=== PATIENT | male | born 1950 | race Caucasian/White ===

== ENCOUNTER 2021-01-09 19:05 | Inpatient (IN) | payer OTHER ==
[2021-01-09 19:42] LABS: Protime INR 1.09
[2021-01-09 19:53] LABS: Absolute Lymphocytes (CBC) 1.2 K/uL (0.7-4.9); Basophils % 0.4 % (0-1.3); Hematocrit 43.8 % (39.6-49.0); Lymphocytes % 8.8 % (15.3-44.8); MPV 8.5 fL (7.6-11.3); RBC Red Blood Cell Count 4.76 M/uL (4.33-5.43)
[2021-01-09 19:55] LABS: Albumin 3.2 g/dL (3.4-5.0); Bilirubin Direct 0.2 mg/dL (0-0.2); Bilirubin Total 0.8 mg/dL (0.2-1.0); Magnesium 1.9 mg/dL (1.8-2.4); Protein, Total 7.9 g/dL (6.4-8.2); Troponin (Emerg Dept Use Only) 0.02 ng/mL (0.0-0.045)
--- NOTE | 2021-01-09 20:03 | RAD REPORT ---
EXAM DESCRIPTION: CT - Head C Spine Cap Da Durán - 01/09/2021 7:55 pm CLINICAL HISTORY: Trauma, head and neck injury. Chest, abdomen and pelvis pain. fall COMPARISON: No comparisons TECHNIQUE: CT head without contrast. CT cervical spine without contrast with coronal and sagittal reformatted images. CT chest, abdomen and pelvis with coronal and sagittal reformatted images of the spine. All CT scans are performed using dose optimization technique as appropriate and may include automated exposure control or mA/KV adjustment according to patient size. FINDINGS: CT HEAD WITHOUT CONTRAST: No intracranial hemorrhage, hydrocephalus or extra-axial fluid collection. No acute large vascular te rritory infarct. Mild chronic small vessel ischemic changes. 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 Mild bilateral maxillary sinus and ethmoid air cell thickening. Trace thickening within the sphenoid sinuses. The calvarium is intact. CT CERVICAL SPINE WITHOUT CONTRAST: No fracture or subluxation. The prevertebral soft tissues are normal in thickness.Multilevel cervical spondylosis with varying de grees of neural foraminal narrowing. This is most advanced at the C4-5, C5-6, and C6-[address] CHEST, ABDOMEN, PELVIS: Thorax: Chest Wall: No abnormal mass Lungs: No acute abnormality. Pleura: No effusions or pneumothorax. Addie/Mediastinum: No lymphadenopathy. Aorta/Pulmonary Arteries: Unremarkable Heart: Cardiomegaly. Mild coronary artery calcifications. Abdomen/Pelvis: Liver: No acute abnormality or suspicious lesions. Biliary: No biliary ductal dilatation. Stomach: No significant focal abnormality. Duodenum: No significant focal abnormality. Pancreas: No significant abnormality. Spleen: No significant abnormality. Adrenal: No suspicious lesions. Kidney/ureter: No hydronephrosis. No renal calculi. Retroperitoneum: No retroperitoneal adenopathy. Vascular: No aneurysm. Bowel: No significant focal abnormality. Peritoneum: No ascites or free air. Bladder: Grossly unremarkable. Reproductive: Mild prostatomegaly. Bones: No acute fracture. Bridging osteophytes in the spine. Other: n/a IMPRESSION: Negative for acute traumatic findings.
--- NOTE | 2021-01-09 20:06 | RAD REPORT ---
EXAM DESCRIPTION: CT - CTFB CLINICAL HISTORY: TRAUMA COMPARISON: No comparisons TECHNIQUE: Axial 2 mm thick images of the face were obtained with sagittal and coronal reconstructio n images. All CT scans are performed using dose optimization technique as appropriate and may include automated exposure control or mA/KV adjustment according to patient size. FINDINGS: No acute facial bone fracture is seen.The mandible is intact. The globes and orbital contents are grossly unremarkable.Mild paranasal sinus thickening. IMPRESSION: Negative for facial bone fracture.
--- NOTE | 2021-01-09 20:20 | RAD REPORT ---
EXAM DESCRIPTION: RAD - Pelvis - 01/09/2021 8:13 pm CLINICAL HISTORY: fall COMPARISON: Head C Spine Cap W Con dated 01/09/2021 FINDINGS: No acute fracture. No malalignment. No significant focal degenerative changes. Contrast se en within the ureters and bladder. Araya catheter. IMPRESSION: No acute osseous abnormality involving the pelvis.
--- NOTE | 2021-01-09 20:21 | RAD REPORT ---
EXAM DESCRIPTION: RAD - Chest Single View - 01/09/2021 8:13 pm CLINICAL HISTORY: fall COMPARISON: Head C Spine Cap W Con dated 01/09/2021 FINDINGS: Lines: None. Lungs: No evidence of edema or pneumonia. Pleural: No significant pleural effusions or pneumothorax. Cardiac: Cardiomegaly. Bones: No acute fractures. Other: IMPRESSION: No acute cardiopulmonary disease.
[2021-01-09] MEDS ORDERED: ACETAMINOPHEN 650MG/RECT SUPP PR ONE (20:25)
[2021-01-09 20:37] LABS: Urine Blood 2+ (Negative); Urine Glucose Negative (Negative); Urine Protein 2+ (Negative)
[2021-01-09] MEDS ORDERED: NA CHLORIDE 0.9% 500 ML ONE ×2 (20:46→22:15)
[2021-01-09 20:47] LABS: Blood Morphology Comment NOT SEEN (NOT SEEN); Platelet Estimate ADEQ; White Blood Cell Scan OK (OK)
[2021-01-09] MEDS ORDERED: NA CHLORIDE 0.9% 50 ML ONE (20:47)
[2021-01-09] MEDS ORDERED: FOLIC ACID 5 MG/ML VIAL ONE (20:47)
[2021-01-09 20:54] LABS: Barbiturates NEGATIVE (NEGATIVE); Benzodiazepines NEGATIVE (NEGATIVE); Cocaine NEGATIVE (NEGATIVE); METHAMPHETAM NEGATIVE (NEGATIVE); Methadone NEGATIVE (NEGATIVE); Opiates NEGATIVE (NEGATIVE); Phencyclidine NEGATIVE (NEGATIVE); THC Cannibis NEGATIVE (NEGATIVE); Urine Bacteria <20 /HPF (NONE SEEN); Urine Mucus 4+ /HPF (NONE SEEN); Urine RBC 20-50 /HPF (NONE SEEN)
[2021-01-09 21:18] LABS: Arterial Blood Carboxyhemoglob 1.7 % (0-1.5); Blood Gas Oxyhemoglobin 92.5 % (94-97); Blood O2 Saturation 94.9 % (92-98.5)
[2021-01-09] MEDS ORDERED: NA CHLORIDE 0.9% 100 ML ONE ×2 (22:10→22:14)
[2021-01-09] MEDS ORDERED: CEFTRIAXONE 1000 MG/VIAL ONE (22:10)
[2021-01-09 22:14] LABS: SARS-COV-2 RT PCR NEGATIVE (NEGATIVE)
[2021-01-09] MEDS ORDERED: HYDRALAZINE HCL 20 MG/ML VIAL ONE (22:14)
[2021-01-09] MEDS ORDERED: FENTANYL CITR 100 MCG/2 ML ONE (22:14)
[2021-01-09] MEDS ORDERED: NA CHLORIDE 0.9% 1,000 ML ONE (22:15)
[2021-01-09] MEDS ORDERED: LEVETIRACETAM 500 MG/5 ML VIAL IV ONE (22:16)
[2021-01-09] MEDS ORDERED: LORazepam 2 MG/ML VIAL ONE (22:50)
--- NOTE | 2021-01-09 23:33 | EDPHYS ---
Physician Documentation [facility] Name: Aram Kapadia Age: 70 yrs Sex: Male : 1950 Arrival Date: 01/09/2021 Time: 19:07 Bed 28 Private MD: ED Physician Mamadou Blandon HPI: 01/09 19:45 This 70 yrs old Male presents to ER via EMS with complaints of Fall Injury. cp 19:45 The patient presents with decreased responsiveness. cp 19:45 Current symptoms: In the emergency department the patient's symptoms are unchanged from cp the initial presentation, despite home interventions. 19:45 Patient's baseline: Neuro: alert and fully oriented, Motor: no deficits, Ambulation: cp walks without assistance, Speech: normal. EMS reports that girlfriend reports history of slip and fall yesterday in bathroom. Patient reportedly was able to get up and move to living room in which he has been laying on floor since yesterday. Girlfriend reportedly went to town this afternoon and when she returned, patient was confused. Historical: - Allergies: 20:30 No Known Allergies; lp1 - Home Meds: 20:30 None [Active]; lp1 - PMHx: 20:30 None; lp1 - Immunization history: Last tetanus immunization: unknown. - Social history:: Smoking status: unknown. ROS: 19:50 Neuro: Positive for dizziness. cp 19:50 Unable to obtain ROS due to altered mental status. Exam: 19:55 Constitutional: The patient appears non-diaphoretic, well developed, well nourished, cp obese. 19:55 Head/face: Noted is ecchymosis, that is moderate, of the left eye, swelling, that is cp moderate, of the left eye. 19:55 Eyes: Pupils: equal, round, and reactive to light and accomodation, Conjunctiva: subconjunctival hemorrhage(s), seen in the left eye, Anterior chamber: normal, no hyphema. 19:55 ENT: External ear(s): are unremarkable, Ear canal(s): are normal, clear, TM's: dullness, bilaterally, Nose: is normal, Mouth: Lips: dry, Oral mucosa: moist, Posterior pharynx: Airway: no evidence of obstruction, patent. 19:55 Neck: C-spine: C-collar placed in ED. 19:55 Chest/axilla: Inspection: normal. 19:55 Cardiovascular: Rate: normal, Rhythm: regular, Edema: is not appreciated, JVD: is not appreciated. 19:55 Respiratory: the patient does not display signs of respiratory distress, Respirations: normal, no use of accessory muscles, no retractions, labored breathing, is not present, Breath sounds: are clear throughout, no decreased breath sounds, no stridor, no wheezing. 19:55 Abdomen/GI: Inspection: obese Bowel sounds: active, all quadrants, Palpation: soft, in all quadrants, moderate abdominal tenderness, in all quadrants, rebound tenderness, is not appreciated. 19:55 Skin: cellulitis, is not appreciated, no rash present. 19:55 Neuro: Orientation: to person, Mentation: slow to respond, confused, Motor: left arm and left leg weak. 20:20 ECG was reviewed by the Attending Physician. cp Vital Signs: 19:07 BP 184 / 84; Pulse 84; Resp 14; Temp 97.9; Pulse Ox 97% ; bp 20:20 BP 189 / 101; Pulse 97; Resp 20; Temp 101(C); Pulse Ox 95% on R/A; lp1 20:35 BP 209 / 96; Pulse 84; Resp 19; Temp 101.4(C); Pulse Ox 95% on R/A; lp1 21:26 Temp 101.1(R); bb 22:00 BP 207 / 91; Pulse 85; Resp 16; Temp 101.2(C); Pulse Ox 95% on R/A; lp1 23:20 BP 180 / 98; Pulse 90; Resp 17; Temp 101(C); Pulse Ox 100% on R/A; Weight 158.76 kg; lp1 01/10 00:00 BP 184 / 99; Pulse 91; Resp 20; Temp 101(C); Pulse Ox 100% on R/A; lp1 Caprice Coma Score: 01/09 19:07 Eye Response: none(1). Verbal Response: incomprehensible(2). Motor Response: withdraws bp from pain(4). Total: 7. 21:00 Eye Response: to voice(3). Verbal Response: confused(4). Motor Response: localizes lp1 pain(5). Total: 12. Trauma Score (Adult): 19:07 Eye Response: to pain(0); Verbal Response: incomprehensible(0); Motor Response: bp withdraws from pain(1); Systolic BP: > 89 mm Hg(4); Respiratory Rate: 10 to 29 per min(4); Caprice Score: 8; Trauma Score: 9 MDM: 19:15 Patient medically screened. cp 21:45 Physician consultation: Maco Suazo MD was called at 21:46, was contacted at 21:46, cp regarding consult, patient's condition, would like admission per Dr. Pete CEVALLOS recommends spinal tap, administer Rocephin and Keppra to cover for seizure. 21:45 Data reviewed: vital signs, nurses notes, lab test result(s), EKG, radiologic studies, cp CT scan, plain films. 21:45 Test interpretation: by ED physician or midlevel provider: ECG, plain radiologic cp studies. 23:00 ED course: Spinal tap attempted by myself and DR Blandon and unsuccessful after multiple cp attempts. IV Rocephin and Keppra given. Will admit to ICU. 23:00 Physician consultation: Pete CEVALLOS was called at 22:00, was contacted at 22:00, cp regarding admission, to the ICU, patient's condition. 01/09 19:15 Order name: AMMONIA 01/09 19:15 Order name: Basic Metabolic Panel; Complete Time: 20:28 01/09 20:29 Interpretation: Normal except: GLUC 158; GFR 70. 01/09 19:15 Order name: CBC with Diff; Complete Time: 21:10 01/09 20:29 Interpretation: Normal except: WBC 14.10; OSEAS% 87.0; LYM% 8.8; NEUT A 12.3. 01/09 19:15 Order name: LFT's; Complete Time: 20:28 01/09 20:30 Interpretation: Normal except: ALB 3.2; GLOB 4.7; A/G 0.7. 01/09 19:15 Order name: Magnesium; Complete Time: 20:28 01/09 19:15 Order name: NT PRO-BNP; Complete Time: 20:28 01/09 20:29 Interpretation: Abnormal: NT PRO-BNP 2393. 01/09 19:15 Order name: PT-INR; Complete Time: 20:28 01/09 19:15 Order name: Troponin (emerg Dept Use Only); Complete Time: 20:28 01/09 20:30 Interpretation: Reviewed. 01/09 19:15 Order name: CK; Complete Time: 20:28 01/09 20:29 Interpretation: Abnormal: CPK 846. 01/09 19:15 Order name: Blood Culture Adult (2); Complete Time: 03:06 01/09 19:15 Order name: Lactate; Complete Time: 21:37 01/09 19:15 Order name: Procalcitonin; Complete Time: 03:06 01/09 19:15 Order name: Urine Microscopic Only; Complete Time: 21:10 01/09 21:10 Interpretation: Normal except: URBC 20-50; MUCUS 4+. 01/09 19:15 Order name: Ptt, Activated; Complete Time: 20:28 01/09 19:15 Order name: Ammonia; Complete Time: 21:10 EDDE 01/09 19:31 Order name: UDS; Complete Time: 21:10 01/09 19:31 Order name: ETOH Level; Complete Time: 20:28 01/09 19:36 Order name: Glucose, Ancillary Testing; Complete Time: 19:51 EDMS 01/09 19:51 Interpretation: GLUC,ANCIL 141; Reviewed. 01/09 20:37 Order name: Urine Dipstick-Ancillary; Complete Time: 20:42 EDMS 01/09 20:40 Order name: ABG; Complete Time: 21:37 01/09 20:47 Order name: CBC Smear Scan; Complete Time: 21:10 EDMS 01/09 21:47 Order name: COVID-19/FLU A+B; Complete Time: 03:06 EDMS 01/09 21:59 Order name: Spinal Fluid Profile 01/10 00:06 Order name: Lactate Sepsis 2 HR Follow-up; Complete Time: 03:06 EDMS 01/10 03:28 Order name: Glucose, Ancillary Testing; Complete Time: 03:06 EDMS 01/10 04:41 Order name: Protime (+INR); Complete Time: 03:06 EDMS 01/10 04:41 Order name: PTT, Activated Partial Thromb; Complete Time: 03:06 EDMS 01/10 04:43 Order name: CBC with Automated Diff; Complete Time: 03:06 EDMS 01/10 04:52 Order name: Lactate; Complete Time: 03:06 EDMS 01/10 05:00 Order name: Comprehensive Metabolic Panel; Complete Time: 03:06 EDMS 01/10 05:00 Order name: Phosphorus; Complete Time: 03:06 EDMS 01/10 05:00 Order name: Creatine Phosphokinase; Complete Time: 03:06 EDMS 01/10 05:00 Order name: Troponin I; Complete Time: 03:06 EDMS 01/10 05:00 Order name: Lipid Profile; Complete Time: 03:06 EDMS 01/10 05:00 Order name: C-Reactive Protein; Complete Time: 03:06 EDMS 01/10 05:00 Order name: T4 Free; Complete Time: 03:06 EDMS 01/10 05:00 Order name: Magnesium; Complete Time: 03:06 EDMS 01/10 05:00 Order name: Thyroid Stimulating Hormone; Complete Time: 03:06 EDMS 01/10 05:21 Order name: Hemoglobin A1c; Complete Time: 03:06 EDMS 01/10 09:25 Order name: Glucose, Ancillary Testing; Complete Time: 03:06 EDMS 01/10 12:54 Order name: Glucose, Ancillary Testing; Complete Time: 03:06 EDMS 01/10 17:13 Order name: Glucose, Ancillary Testing; Complete Time: 03:06 MS 01/10 20:52 Order name: Glucose, Ancillary Testing; Complete Time: 03:06 EDMS 01/11 03:47 Order name: CBC with Automated Diff; Complete Time: 03:06 EDMS 01/11 04:00 Order name: Comprehensive Metabolic Panel; Complete Time: 03:06 EDMS 01/11 04:00 Order name: Phosphorus; Complete Time: 03:06 EDMS 01/11 04:00 Order name: Troponin I; Complete Time: 03:06 EDMS 01/11 04:00 Order name: Magnesium; Complete Time: 03:06 EDMS 01/11 08:34 Order name: Glucose, Ancillary Testing; Complete Time: 03:06 EDMS 01/11 17:38 Order name: Glucose, Ancillary Testing; Complete Time: 03:06 EDMS 01/11 17:59 Order name: Vancomycin Level Trough; Complete Time: 03:06 EDMS 01/12 02:45 Order name: Glucose, Ancillary Testing; Complete Time: 03:06 EDMS 01/12 04:20 Order name: CBC with Automated Diff; Complete Time: 03:06 MS 01/12 04:53 Order name: Comprehensive Metabolic Panel; Complete Time: 03:06 MS 01/12 04:53 Order name: Phosphorus; Complete Time: 03:06 EDMS 01/12 04:54 Order name: Troponin I; Complete Time: 03:06 MS 01/12 04:54 Order name: Magnesium; Complete Time: 03:06 EDMS 01/12 08:27 Order name: CREATININE WHOLE BLOOD; Complete Time: 03:06 MS 01/12 08:28 Order name: Glucose, Ancillary Testing; Complete Time: 03:06 MS 01/12 12:29 Order name: Troponin I; Complete Time: 03:06 [facility] 01/09 19:15 Order name: XRAY Chest (1 view); Complete Time: 20:28 01/09 20:31 Interpretation: Report reviewed. 01/09 19:15 Order name: XRAY Pelvis; Complete Time: 20:28 01/09 20:30 Interpretation: Report reviewed. 01/09 19:15 Order name: CT Facial Bones W/O Con; Complete Time: 20:28 01/09 20:31 Interpretation: Report reviewed. 01/09 19:15 Order name: CT Traumagram (Head C Spine CAP W Con); Complete Time: 20:28 01/12 09:22 Order name: RAD; Complete Time: 03:06 [facility] 01/12 18:20 Order name: Troponin I; Complete Time: 03:06 [facility] 01/12 18:35 Order name: Ammonia; Complete Time: 03:06 EDMS 01/13 04:35 Order name: CBC with Automated Diff; Complete Time: 03:06 EDMS 01/13 05:21 Order name: Comprehensive Metabolic Panel; Complete Time: 03:06 EDMS 01/13 05:21 Order name: Phosphorus; Complete Time: 03:06 EDMS 01/13 05:21 Order name: Magnesium; Complete Time: 03:06 EDMS 01/13 05:21 Order name: Vancomycin Level Trough; Complete Time: 03:06 EDMS 01/13 13:23 Order name: Urinalysis; Complete Time: 03:06 EDMS 01/13 13:39 Order name: Urine Microscopic Only; Complete Time: 03:06 EDMS 01/13 14:11 Order name: Lactic Dehydrogenase; Complete Time: 03:06 EDMS 01/13 18:59 Order name: Ur Protein; Complete Time: 03:06 EDMS 01/14 05:18 Order name: Comprehensive Metabolic Panel; Complete Time: 03:06 EDMS 01/14 05:18 Order name: Renal Panel; Complete Time: 03:06 EDMS 01/14 05:18 Order name: Uric Acid; Complete Time: 03:06 EDMS 01/14 05:18 Order name: Creatine Phosphokinase; Complete Time: 03:06 EDMS 01/14 05:18 Order name: Magnesium; Complete Time: 03:06 EDMS 01/14 05:18 Order name: Thyroid Stimulating Hormone; Complete Time: 03:06 EDMS 01/14 05:33 Order name: T4 Free; Complete Time: 03:06 EDMS 01/14 07:05 Order name: CBC with Automated Diff; Complete Time: 03:06 EDMS 01/14 08:04 Order name: Urine Culture; Complete Time: 03:06 EDMS 01/14 11:44 Order name: Salicylates Level; Complete Time: 03:06 EDMS 01/14 12:09 Order name: Osmolality, Serum; Complete Time: 03:06 EDMS 01/14 12:51 Order name: ABG Arterial Blood Gas; Complete Time: 03:06 EDMS 01/15 06:02 Order name: CBC with Automated Diff; Complete Time: 03:06 EDMS 01/15 06:07 Order name: Protime (+INR); Complete Time: 03:06 EDMS 01/15 06:07 Order name: PTT, Activated Partial Thromb; Complete Time: 03:06 EDMS 01/15 06:18 Order name: Vancomycin Level Trough; Complete Time: 03:06 EDMS 01/15 06:24 Order name: Renal Panel; Complete Time: 03:06 EDMS 01/15 07:54 Order name: Rheumatoid Factor; Complete Time: 03:06 EDMS 01/15 14:27 Order name: ABG Arterial Blood Gas; Complete Time: 03:06 EDMS 01/16 06:17 Order name: CBC with Automated Diff EDMS 01/16 06:21 Order name: Lactate EDMS 01/16 06:39 Order name: Renal Panel EDMS 01/16 06:39 Order name: Magnesium EDMS 01/16 06:43 Order name: Vitamin B12 Level EDMS 01/17 03:56 Order name: CBC with Automated Diff EDMS 01/17 04:20 Order name: Renal Panel EDMS 01/17 13:53 Order name: Complement C3 EDMS 01/17 13:53 Order name: Complement C4 EDMS 01/17 13:53 Order name: Haptoglobin EDMS 01/17 15:55 Order name: Hepatitis C RNA, Quant (PCR) EDMS 01/17 19:56 Order name: HIV AG/AB, 4th Gen W/ Reflex EDMS 01/17 23:46 Order name: Hepatitis B Surface Ab,Quant EDMS 01/18 04:50 Order name: CBC with Automated Diff EDMS 01/18 05:19 Order name: Renal Panel EDMS 01/18 21:23 Order name: ANTONIO IFA Screen w/Reflex EDMS 01/19 05:25 Order name: CBC with Automated Diff EDMS 01/19 06:00 Order name: Basic Metabolic Panel EDMS 01/19 06:00 Order name: Liver (Hepatic) Function EDMS 01/19 06:00 Order name: Phosphorus EDMS 01/19 06:00 Order name: Magnesium EDMS 01/19 06:00 Order name: Vancomycin Level Trough EDMS 01/19 07:25 Order name: Anti-Double Strand DNA Antibod EDMS 01/19 10:05 Order name: C-ANCA Anti-Proteinase 3 EDMS 01/19 10:05 Order name: P-ANCA Anti-Myeloperoxidase Ab EDMS 01/19 10:05 Order name: Glomerular Basement Membrane EDMS 01/19 19:13 Order name: Hep B Surface AG w/ Confirm EDMS 01/19 19:13 Order name: Hep B Core Ab, Tot/reflex IgM EDMS 01/19 19:13 Order name: Hepatitis B Surface Antibody EDMS 01/09 19:15 Order name: EKG; Complete Time: 19:16 cp 01/09 19:15 Order name: Cardiac monitoring; Complete Time: 19:35 cp 01/09 19:15 Order name: EKG - Nurse/Tech; Complete Time: 20:39 cp 01/09 19:15 Order name: IV Saline Lock; Complete Time: 19:36 cp 01/09 19:15 Order name: Labs collected and sent; Complete Time: 19:36 cp 01/09 19:15 Order name: O2 Per Protocol; Complete Time: 19:36 cp 01/09 19:15 Order name: O2 Sat Monitoring; Complete Time: 19:36 01/09 19:15 Order name: Urine Dipstick-Ancillary (obtain specimen); Complete Time: 20:39 cp 01/09 19:15 Order name: Araya; Complete Time: 20:39 01/09 20:41 Order name: Swallow Screen; Complete Time: 20:45 01/09 21:16 Order name: Vital Signs: rectal temp please; Complete Time: 21:26 cp 01/09 21:59 Order name: Lumbar Puncture Consent; Complete Time: 22:33 cp 01/09 21:59 Order name: Lumbar Puncture Setup; Complete Time: 23:31 01/09 23:38 Order name: CONS Physician Consult EDMS 01/13 10:04 Order name: CT; Complete Time: 03:06 EDMS 01/13 11:57 Order name: US; Complete Time: 03:06 EDMS 01/14 15:38 Order name: RAD; Complete Time: 03:06 EDMS 01/18 12:13 Order name: RAD EDMS 01/19 07:44 Order name: RAD EDMS 01/19 11:07 Order name: RAD EDMS 01/19 12:08 Order name: RAD EDMS 01/19 13:25 Order name: RAD EDMS EC:20 Rate is 92 beats/min. Rhythm is regular. KS interval is normal. QRS interval is normal. cp QT interval is normal. T waves are Inverted in lead aVR. Interpreted by me. Reviewed by me. Administered Medications: 20:25 Drug: Tylenol Suppository 650 mg Route: KS; bb 23:33 Follow up: Response: Temperature is decreased lp1 20:55 Drug: foLIC Acid 1 mg Route: IVPB; Site: right antecubital; lp1 21:00 Follow up: IV Status: Completed infusion; IV Intake: 50ml lp1 20:55 Drug: NS 0.9% 500 ml Route: IV; Rate: 500 ml/hr; Site: right antecubital; lp1 22:32 Follow up: IV Status: Completed infusion; IV Intake: 500ml lp1 22:18 Drug: Rocephin - (cefTRIAXone) 2 grams Route: IVPB; Infused Over: 30 mins; Site: right bb antecubital; 22:55 Follow up: IV Status: Completed infusion; IV Intake: 100ml lp1 22:25 Drug: NS 0.9% 500 ml Route: IV; Rate: bolus; Site: left antecubital; lp1 23:59 Follow up: IV Status: Completed infusion; IV Intake: 500ml lp1 22:25 Drug: hydrALAZINE 10 mg Route: IVP; Site: left antecubital; lp1 23:33 Follow up: Response: Blood pressure is lowered lp1 22:25 Drug: NS 0.9% 1000 ml Route: IV; Rate: 1000 ml; Site: left antecubital; lp1 01/10 00:00 Follow up: IV Status: Completed infusion; IV Intake: 1000ml lp1 01/09 22:32 Drug: Keppra (levETIRAcetam) 1000 mg Route: IV; Rate: calculated rate; Site: right lp1 antecubital; 22:55 Follow up: IV Status: Completed infusion; IV Intake: 100ml lp1 22:50 Drug: fentaNYL (PF) 25 mcg Route: IVP; Site: left antecubital; lp1 23:32 Follow up: Response: No adverse reaction lp1 22:50 Drug: Ativan (LORazepam) 1 mg {Note: Verbal order per BAN Lemons for Lumbar puncture lp1 procedure.} Route: IVP; Site: left antecubital; 23:33 Follow up: Response: No adverse reaction lp1 Disposition: 01/10 01:00 Chart complete. cp 01/17 19:09 Co-signature as Attending Physician, Mamadou Blandon MD. [email or web address] Disposition Summary: 01/09/21 23:32 Hospitalization Ordered Hospitalization Status: Inpatient Admission cp Provider: Pete Menard cp Condition: Serious cp Problem: new cp Symptoms: are unchanged cp Bed/Room Type: Standard cp Location: [facility] ER HOLD(01/17/21 16:34) eb Room Assignment: ERHOLD-(01/17/21 16:34) eb Diagnosis - Altered mental status, unspecified cp - Fever, unspecified cp - Fall on same level, unspecified cp Forms: - Medication Reconciliation Form cp - SBAR form cp Signatures: Dispatcher [employer] Marleen De La Rosa RN RN Starr Gar RN RN Celena Pompa, RN RN lp1 Robert Mon PA PA cp Garcia, Cindy, RN RN Alec Sanchez, RN RN Yani Suárez Maurice, MD MD [email or web address] Corrections: (The following items were deleted from the chart) 01/09 21:47 21:16 CORONAVIRUS+MR.LAB.BRZ ordered. EDMS EDMS 21:47 21:16 Influenza Screen (A \T\ B)+BA.LAB.BRZ ordered. EDMS EDMS 01/10 00:53 01/09 23:32 Intensive Care Unit cp cg 01/10 00:53 01/09 23:32 cp 01/17 16:32 01/10 00:53 [facility] ER HOLD [facility] 01/17 16:32 01/10 00:53 ERHOLD- [facility] 01/17 16:34 16:32 Telemetry/MedSurg (Inpatient) [facility] 16:34 16:32 405 [facility]
--- NOTE | 2021-01-09 23:33 | ER ---
Nurse's Notes [facility] Name: Aram Kapadia Age: 70 yrs Sex: Male : 1950 Arrival Date: 01/09/2021 Time: 19:07 Bed 28 Private MD: Diagnosis: Altered mental status, unspecified;Fever, unspecified;Fall on same level, unspecified Presentation: 01/09 19:07 Chief complaint: EMS states: FALL FROM STANDING LAST PM, NOW UNRESPONSIVE. Care prior bp to arrival: IV initiated. 20 GA, in the right antecubital area, Glucose check: 181. Mechanism of Injury: Fall from standing position. Trauma event details: Injury occurred in the [facility], Injury occurred: at home. Injury occurred: January 08, 2021 Injury occurred at: 19:30. 19:07 Acuity: DAYNE 1 bp 19:07 Method Of Arrival: EMS: [facility] bp 19:17 Coronavirus screen: At this time, the client does not indicate any symptoms associated bp with coronavirus-19. Ebola Screen: No symptoms or risks identified at this time. Initial Sepsis Screen: Does the patient meet any 2 criteria? No. Patient's initial sepsis screen is negative. Does the patient have a suspected source of infection?. Risk Assessment: Do you want to hurt yourself or someone else? Patient reports no desire to harm self or others. Onset of symptoms was January 08, 2021 at 19:30. Trauma Activation: Alert Physician: ED Physician; Name: Barber; Notified At: 19:08; Arrived At: 19:10 Physician: General Surgeon; Name: ; Notified At: 19:08; Arrived At: Physician: Radiology; Name: Sadie Duran Juliet; Notified At: 19:08; Arrived At: 19:10 Physician: Respiratory; Name: ; Notified At: 19:08; Arrived At: Physician: Lab; Name: ; Notified At: 19:08; Arrived At: Historical: - Allergies: 20:30 No Known Allergies; lp1 - Home Meds: 20:30 None [Active]; lp1 - PMHx: 20:30 None; lp1 - Immunization history: Last tetanus immunization: unknown. - Social history:: Smoking status: unknown. Screenin:07 Abuse screen: Denies threats or abuse. Denies injuries from another. Tuberculosis bp screening: No symptoms or risk factors identified. 19:15 Nutritional screening: No deficits noted. Fall Risk Total Burkett Fall Scale indicates lp1 High Risk Score (45 or more points). Fall prevention measures have been instituted. Side Rails Up X 2 Placed Close to Nursing Station Frequent Obs/Assessments Occuring Family Present and informed to notify staff if the need to leave the bedside As available patient and family educated on Fall Prevention Program and Strategies. 20:45 The patient has not been NPO before screening. The patient is not alert, or is unable bb to follow commands. Bedside swallow screening discontinued. Patient kept NPO until cleared by Speech Therapy or Physician. Primary Survey: 19:07 NO uncontrolled hemorrhage observed. A: The patient only responds to painful stimuli. bp Airway: patent. Breathing/Chest: Respiratory pattern: regular, Respiratory effort: spontaneous, unlabored. Circulation: Skin temperature: dry. Disability Painful Stimuli. Exposure/Environment: All clothing and personal items were removed. Forensic evidence collection is not deemed to be indicated at this time. Items placed in patient belonging bag. There is no evidence of uncontrolled external bleeding. Obvious injury(ies) are noted at this time: LEFT EYE HEMATOMA A warming method has been applied: A warm blanket has been provided to the patient. 20:15 Reassessment Airway Airway Patent Oxygen No O2 Breathing/Chest Respiratory effort lp1 Spontaneous Unlabored Breath sounds Clear Chest inspection Symmetrical Circulation Color [place] Temperature Warm Dry Disability Verbal stimuli. Secondary Survey: 20:00 HEENT: Face Other bruising purple in color surrounding left eye, with swelling. lp1 Gastrointestinal: Abdomen is obese. : No deficits noted. Musculoskeletal: Range of motion: intact in all extremities. Assessment: 19:07 General: Appears obese, Behavior is unresponsive. Pain: Unable to use pain scale. Does bp not appear to understand pain scale. Neuro: Level of Consciousness is confused, stuporous, Oriented to none Speech with expressive aphasia noted. EENT: No deficits noted. Cardiovascular: No deficits noted. Respiratory: Airway is patent Respiratory effort is even, unlabored, Respiratory pattern is regular, symmetrical. GI: Abdomen is obese. : No signs and/or symptoms were reported regarding the genitourinary system. Derm: No deficits noted. Musculoskeletal: No deficits noted. Injury Description: Bruise sustained to left eye. 20:35 Reassessment: C-collar removed by provider; at bedside. lp1 21:00 General: Appears in no apparent distress. obese, Behavior is responsive to verbal lp1 stimuli, some incomprehensible words; answering yes/no questions . Pain: Denies pain. Neuro: Level of Consciousness is confused, Oriented to person, Radio Interference Expert are weak on left Moves all extremities. Speech is slurred. EENT: No deficits noted. Cardiovascular: Patient's skin is warm and dry. Respiratory: Airway is patent Respiratory effort is even, Respiratory pattern is regular, Breath sounds are clear bilaterally. GI: Abdomen is obese. : Chapman in place to gravity drainage. Derm: Skin is dry, Bruising that is dark purple, on left eye abrasion to left elbow. Musculoskeletal: Range of motion: intact in all extremities. 22:50 Reassessment: Dr. Blandon and BAN Amaya at bedside for Lumbar Puncture. lp1 23:31 Reassessment: Unsuccessful attempt for lumbar puncture. lp1 01/10 00:40 Reassessment: Patient appears in no apparent distress at this time. Patient resting, lp1 eyes closed, respirations even; Responsive to verbal stimuli. Vital Signs: 01/09 19:07 BP 184 / 84; Pulse 84; Resp 14; Temp 97.9; Pulse Ox 97% ; bp 20:20 BP 189 / 101; Pulse 97; Resp 20; Temp 101(C); Pulse Ox 95% on R/A; lp1 20:35 BP 209 / 96; Pulse 84; Resp 19; Temp 101.4(C); Pulse Ox 95% on R/A; lp1 21:26 Temp 101.1(R); bb 22:00 BP 207 / 91; Pulse 85; Resp 16; Temp 101.2(C); Pulse Ox 95% on R/A; lp1 23:20 BP 180 / 98; Pulse 90; Resp 17; Temp 101(C); Pulse Ox 100% on R/A; Weight 158.76 kg; lp1 01/10 00:00 BP 184 / 99; Pulse 91; Resp 20; Temp 101(C); Pulse Ox 100% on R/A; lp1 Caprice Coma Score: 01/09 19:07 Eye Response: none(1). Verbal Response: incomprehensible(2). Motor Response: withdraws bp from pain(4). Total: 7. 21:00 Eye Response: to voice(3). Verbal Response: confused(4). Motor Response: localizes lp1 pain(5). Total: 12. Trauma Score (Adult): 19:07 Eye Response: to pain(0); Verbal Response: incomprehensible(0); Motor Response: bp withdraws from pain(1); Systolic BP: > 89 mm Hg(4); Respiratory Rate: 10 to 29 per min(4); Caprice Score: 8; Trauma Score: 9 ED Course: 19:07 Patient arrived in ED. bp 19:07 Patient has correct armband on for positive identification. Bed in low position. Call bp light in reach. Side rails up X2. 19:07 Patient maintains SpO2 saturation greater than 95% on room air. bp 19:09 Triage completed. bp 19:10 Maintain EMS IV. Dressing intact. Good blood return noted. Site clean \T\ dry. Gauge \T\ lp 1 site: 20g IV to R AC. 19:11 Robert Mon PA is PHCP. cp 19:11 Mamadou Blandon MD is Attending Physician. cp 19:15 Arm band placed on right wrist. lp1 19:23 Celena Jerry, BOBO is Primary Nurse. lp1 19:36 Inserted saline lock: 20 gauge in left antecubital area, using aseptic technique. Blood ds4 collected. 19:55 CT Facial Bones W/O Con In Process Unspecified. EDMS 19:55 CT Traumagram (Head C Spine CAP W Con) In Process Unspecified. EDMS 20:13 XRAY Chest (1 view) In Process Unspecified. EDMS 20:13 XRAY Pelvis In Process Unspecified. EDMS 20:21 Chapman cath inserted, using sterile technique, 16 Fr., returned 245 mLs. Patient bb tolerated well. 20:30 Thermoregulation: Patient with temp of 101 with chapman catheter. lp1 22:40 Consent for a lumbar puncture explained by staff, explained by physician, signed by lp1 spouse. 23:30 Assist provider with lumbar puncture: Set up LP tray. Performed by Robert CEVALLOS lp1 Procedure unsuccessful. 23:31 Peet Menard PA is Hospitalizing Provider. cp 23:34 Patient admitted, IV remains in place. lp1 01/13 12:35 Primary Nurse role handed off by Celena Jerry RN bd Administered Medications: 01/09 20:25 Drug: Tylenol Suppository 650 mg Route: DE; bb 23:33 Follow up: Response: Temperature is decreased lp1 20:55 Drug: foLIC Acid 1 mg Route: IVPB; Site: right antecubital; lp1 21:00 Follow up: IV Status: Completed infusion; IV Intake: 50ml lp1 20:55 Drug: NS 0.9% 500 ml Route: IV; Rate: 500 ml/hr; Site: right antecubital; lp1 22:32 Follow up: IV Status: Completed infusion; IV Intake: 500ml lp1 22:18 Drug: Rocephin - (cefTRIAXone) 2 grams Route: IVPB; Infused Over: 30 mins; Site: right bb antecubital; 22:55 Follow up: IV Status: Completed infusion; IV Intake: 100ml lp1 22:25 Drug: NS 0.9% 500 ml Route: IV; Rate: bolus; Site: left antecubital; lp1 23:59 Follow up: IV Status: Completed infusion; IV Intake: 500ml lp1 22:25 Drug: hydrALAZINE 10 mg Route: IVP; Site: left antecubital; lp1 23:33 Follow up: Response: Blood pressure is lowered lp1 22:25 Drug: NS 0.9% 1000 ml Route: IV; Rate: 1000 ml; Site: left antecubital; lp1 01/10 00:00 Follow up: IV Status: Completed infusion; IV Intake: 1000ml lp1 01/09 22:32 Drug: Keppra (levETIRAcetam) 1000 mg Route: IV; Rate: calculated rate; Site: right lp1 antecubital; 22:55 Follow up: IV Status: Completed infusion; IV Intake: 100ml lp1 22:50 Drug: fentaNYL (PF) 25 mcg Route: IVP; Site: left antecubital; lp1 23:32 Follow up: Response: No adverse reaction lp1 22:50 Drug: Ativan (LORazepam) 1 mg {Note: Verbal order per BAN Lemons for Lumbar puncture lp1 procedure.} Route: IVP; Site: left antecubital; 23:33 Follow up: Response: No adverse reaction lp1 Intake: 19:07 PO: 0ml; Total: 0ml. bp 21:00 IV: 50ml; Total: 50ml. lp1 22:32 IV: 500ml; Total: 550ml. lp1 22:55 IV: 100ml; Total: 650ml. lp1 22:55 IV: 100ml; Total: 750ml. lp1 23:59 IV: 500ml; Total: 1250ml. lp1 01/10 00:00 IV: 1000ml; Total: 2250ml. lp1 Output: 01/09 19:07 Urine: 0ml; Total: 0ml. bp 20:40 Urine: 245ml (Chapman); Total: 245ml. bb Outcome: 23:32 Decision to Hospitalize by Provider. cp 23:34 critical lp1 23:34 Instructed on the need for admit. 01/10 01:10 Admitted to Report called to Elies Puentes RN for patient admission to ICU in ED lp1 01:15 Patient's length of stay was extended due to no available ICU beds in the hospital. lp1 01/19 19:54 Patient left the ED. mw Signatures: Dispatcher [employer] EDMS Viviana Wade Martha RN RN Marleen Wilcox RN RN Celena Jerry, BOBO RN 1 Mariano Dominguez ds4 Robert Mon PA PA cp Peltier, Brian, RN RN bp Corrections: (The following items were deleted from the chart) 01/09 23:34 23:20 BP 180 / 98; Pulse 90bpm; Resp 17bpm; Pulse Ox 100% RA; Temp 101F Catheter; lp1 lp1
--- NOTE | 2021-01-10 00:19 | P.HP ---
Certification for Inpatient Patient admitted to: Inpatient With expected LOS: >2 Midnights Patient will require the following post-hospital care: None Practitioner: I am a practitioner with admitting privileges, knowledge of patient current condition, hospital course, and medical plan of care. Services: Services provided to patient in accordance with Admission requirements found in Title 42 Section 412.3 of the Code of Federal Regulations Patient History Date of Service: 01/09/21 Reason for admission: AMS History of Present Illness: Mr. Kapadia is a 70 yo obese gentleman brought in today for AMS, confusion and fever. Yesterday, he tripped on the rug in the bathroom and fell and hit his head. He did not lose consciousness. His and a neighbor helped move him to the couch. She left his side to get a blanket and when she came back, he was on the floor. She could not get him off the floor. He could not move or talk. He was only moaning and groaning. She says the AMS and confusion began this morning at 10am. He also had nausea and vomiting. He was on the floor from Monday evening to Monday evening. He has not eaten or had anything to drink since then. He has a bruise to his left eye. At baseline he is AOx4 and independent. He has not seen a doctor for several years. Upon arrival, BP 207/91 and fever of 101.2. Neurology recommended LP to be done in ED, but attempts were unsuccessful, and will try again in the AM. WBC 14.1 CPK 846 BNP 2393 Traumagram IMPRESSION: Negative for acute traumatic findings. Pelvis XRAY IMPRESSION: No acute osseous abnormality involving the pelvis. CT Facial Bones IMPRESSION: Negative for facial bone fracture. CXR IMPRESSION: No acute cardiopulmonary disease. - Past Medical/Surgical History Has patient received pneumonia vaccine in the past: No Diabetic: No Past Medical History: Patient denies medical history -: scalp lac repair - Family History Family History: Reviewed- Non-Contributory - Social History Smoking Status: Never smoker Alcohol use: No CD- Drugs: No Caffeine use: Yes Place of Residence: Home Review of Systems 10-point ROS is otherwise unremarkable General: Fever, Weakness, As per HPI Eyes: As per HPI (bruise surrouding left eye) ENT: Unremarkable Respiratory: Unremarkable Cardiovascular: Unremarkable Gastrointestinal: Nausea, Vomiting Genitourinary: Unremarkable Musculoskeletal: Unremarkable Integumentary: Bruising, As per HPI Neurological: Weakness, Change in Speech, Confusion, As per HPI Lymphatics: Unremarkable Physical Examination - Physical Exam General: Confused, Obese HEENT: Mucous membr. moist/pink, Sclerae nonicteric Neck: Supple, 2+ carotid pulse no bruit, No LAD, Without JVD or thyroid abnormality Respiratory: Clear to auscultation bilaterally, Normal air movement Cardiovascular: No edema, Regular rate/rhythm, Normal S1 S2 Gastrointestinal: Normal bowel sounds, No tenderness Musculoskeletal: No tenderness, Swelling Integumentary: Skin breakdown, Tenderness/swelling, Erythema Neurological: Normal strength at 5/5 x4 extr, Normal tone, Sensation intact, Abnormal speech, Abnormal affect Lymphatics: No axilla or inguinal lymphadenopathy Urinary: Araya catheter - Studies Laboratory Data (last 24 hrs) 01/09/21 19:25: PT 12.6 H, INR 1.09, APTT 27.3 01/09/21 19:25: WBC 14.10 H, Hgb 14.6, Hct 43.8, Plt Count 307 01/09/21 19:25: Sodium 137, Potassium 4.0, BUN 10, Creatinine 1.04, Glucose 158 H, Magnesium 1.9, Total Bilirubin 0.8, AST 33, ALT 25, Alkaline Phosphatase 63 Assessment and Plan - Problems (Diagnosis) (1) AMS (altered mental status) Current Visit: Yes Status: Acute Qualifiers: Altered mental status type: unspecified Qualified Code(s): R41.82 - Altered mental status, unspecified (2) Fever Current Visit: Yes Status: Acute Qualifiers: Fever type: unspecified Qualified Code(s): R50.9 - Fever, unspecified (3) Hypertensive urgency Current Visit: Yes Status: Acute - Plan admitted to ICU neurology consulted, LP in the AM, MRI brain pending continue IV ceftriaxone and vancomycin, gentle IVF hydration continue IV keppra acetaminophen for control of fever hydralazine q4hr for BP spikes sliding scale insulin and accuchecks, A1c pending O2 as needed DVT ppx Discharge Plan: Home Plan to discharge in: Greater than 2 days - Advance Directives Does patient have a Living Will: No Does patient have a Durable POA for Healthcare: No - Code Status/Comfort Care Code Status Assessed: Yes (full code ) Critical Care: Yes Time Spent Managing Pts Care (In Minutes): 70
[2021-01-10] MEDS ORDERED: ACETAMINOPHEN 650MG/RECT SUPP PR PRN (01:48)
[2021-01-10] MEDS ORDERED: ONDANSETRON 4 MG/2 ML VIAL IV PRN (01:48)
[2021-01-10] MEDS ORDERED: IPRATROPIUM BROM 0.5MG/2.5ML NEB PRN (01:48)
[2021-01-10] MEDS ORDERED: Pharmacy Consult 1 EA XX PRN (01:48)
[2021-01-10] MEDS: INSULIN -REGULAR HUMAN 50 UNIT/0.5 ML ML SQ SCH ×4 (01:48→19:41)
[2021-01-10] MEDS: NA CHLORIDE 0.9% 1,000 ML IV SCH ×2 (01:48→03:38)
[2021-01-10] MEDS ORDERED: ALBUTEROL 2.5 MG/3 ML NEB SOL NEB PRN (01:48)
[2021-01-10] MEDS ORDERED: Nicardipine in Saline, Iso-Osm 20 MG/200 ML IV.SOLN. IV SCH (02:00)
[2021-01-10] MEDS ORDERED: VANCOMYCIN 3 GM in NA CHLORIDE 0.9% 500 ML IVPB ONE ×3 (02:00→08:00)
[2021-01-10] MEDS ORDERED: NA CHLORIDE 0.9% 1,000 ML ONE ×2 (03:32→23:55)
[2021-01-10] MEDS ORDERED: HYDRALAZINE HCL 20 MG/ML VIAL ONE ×3 (03:33→21:02)
[2021-01-10] MEDS: HYDRALAZINE HCL 20 MG/ML VIAL IV PRN ×4 (03:38→23:00)
[2021-01-10 04:37] LABS: Absolute Lymphocytes (CBC) 1.8 K/uL (0.7-4.9); Basophils % 0.5 % (0-1.3); Hematocrit 42.4 % (39.6-49.0); Lymphocytes % 12.1 % (15.3-44.8); MPV 8.6 fL (7.6-11.3); RBC Red Blood Cell Count 4.55 M/uL (4.33-5.43)
[2021-01-10 04:41] LABS: Protime INR 1.07
[2021-01-10] MEDS ORDERED: VANCOMYCIN 1 GM/VIAL ONE (04:48)
[2021-01-10] MEDS ORDERED: NICARDIPINE HCL 25 MG/10 ML IV ONE (04:48)
[2021-01-10] MEDS ORDERED: NA CHLORIDE 0.9% 500 ML ONE (04:51)
[2021-01-10 05:00] LABS: ALT/SGPT 25 U/L (12-78); AST/SGOT 38 U/L (15-37); Albumin 2.9 g/dL (3.4-5.0); Alkaline Phosphatase 58 U/L (45-117); BUN Blood Urea Nitrogen 11 mg/dL (7-18); Bicarbonate 25 mmol/L (21-32); Bilirubin Total 0.8 mg/dL (0.2-1.0); Creatine Phosphokinase 791 U/L (39-308); Glucose Level 138 mg/dL (74-106); HDL Cholesterol 48 mg/dL (40-60); LDL Cholesterol, Calculated 95 (<130); Magnesium 1.8 mg/dL (1.8-2.4); Phosphorus 2.1 mg/dL (2.5-4.9); Potassium 3.6 mmol/L (3.5-5.1); Protein, Total 7.4 g/dL (6.4-8.2); Sodium Level 140 mmol/L (136-145); Troponin I 0.06 ng/mL (0.0-0.045)
[2021-01-10] MEDS ORDERED: NA CHLORIDE 0.9% 250 ML ONE ×2 (05:08→20:52)
[2021-01-10] MEDS ORDERED: Nicardipine/NS 25 MG/250 ML KIT IV ONE (07:27)
[2021-01-10] MEDS ORDERED: NICARDIPINE HCL 25 MG in NA CHLORIDE 0.9% 240 ML IV PRN (09:39)
[2021-01-10] MEDS: CEFTRIAXONE 2,000 MG in NA CHLORIDE 0.9% 100 ML IV SCH ×2 (09:58→20:53)
[2021-01-10] MEDS ORDERED: levETIRAcetam 1,000 MG in NA CHLORIDE 0.9% 100 ML IV SCH ×2 (10:00→11:00)
[2021-01-10] MEDS ORDERED: VANCOMYCIN 2 GM in NA CHLORIDE 0.9% 500 ML IVPB SCH ×3 (12:00→23:00)
--- NOTE | 2021-01-10 13:33 | P.PN ---
Date of Service: 01/10/21 Subjective: No significant change since admission, lethargic/somnolent, awakens to verbal stimuli briefly. Mumbles yes/no, mumbles a few words, but difficult to understand Follow some basic commands, does not answer all questions Patient appears somewhat restless Significant hypertension in ED, placed on Cardene drip with some improvement ROS: 10 point ROS as noted above, otherwise negative Physical exam GEN: Somnolent, arousable to verbal stimuli briefly HEENT: Left eye with ecchymosis eyelid and surrounding soft tissue, normal conjunctiva CV: Regular rate and rhythm, no edema Pulm: Nonlabored respiration on room air ABD: Soft, nontender, nondistended MSK: No joint swelling Integumentary: No rashes Neuro: Moves all extremities, follows commands with right side, unclear on left but moves all extremities Problem List Acute metabolic encephalopathy secondary to fever/infection Fever with unknown source Hypertensive urgency fluid/likely emergency with neuro changes Morbid obesity Continue to monitor in ICU, patient with somnolence, temporarily arousable, but no significant conversation Neurology consulted, overnight, ER attempted LP x2, unsuccessfully. Continue Keppra, Rocephin and vancomycin Continue some IV fluids, antipyretics Unclear if hypertension is chronic, acute on chronic, or acute after fall Patient does not see a doctor, therefore has no past medical history Insulin sliding scale/Accu-Cheks Oxygen as needed Antipyretics Cardiology consulted, on Cardene drip Titrate Cardene drip, may be able to transition to IV or p.o., pending patient's further improvement VTE: SCDs Code: Wood Floor Refinisher Spent Managing Pts Care (In Minutes): 35
--- NOTE | 2021-01-10 13:56 | CON ---
Date of Consultation: 01/10/2021 Reason For Consultation: Hypertensive crisis. History Of Present Illness: This is a 70-year-old male, presented to the emergency room with altered mental status and fever. He tripped on the rug yesterday in the bathroom and fell, hit his head, di d not lose his consciousness. Family obtained help to get him out of the floor, brought him to the e mergency room. The patient had nausea and vomiting along with it and no report of chest pain. The p atient apparently has been having fevers as well and was reported as per nursing staff that he is a h eavy drinker; however, as per who lives with him, he used to be a heavy drinker, but not lately. He drinks 2-3 times a week and only 3-4 beers at an occasion. Past Medical History: None as the patient does not see a doctor. Medications: None. Allergies: NO KNOWN DRUG ALLERGIES. Family History: No premature coronary artery disease or cancer. Social History: Does not smoke. Drinks alcohol as above. Does not use any drugs. Review of Systems: All systems reviewed and they were negative except mentioned in the HPI. Physical Examination: Vital Signs: Temperature is 98.8, pulse is 95, breathing at 16, blood pressure is 135/84. General: This is an elderly male, no apparent distress. Head and Neck: Pupils are equal, reactive to light. Intact eye movements. No JVD. No cervical lym phadenopathy. Has ecchymosis around his eye from a fall. Neck: Supple. Thyroid is not enlarged. Lungs: Clear to auscultation bilaterally. No rhonchi, rales, or crackles. No accessory muscle use. Heart: Regular rate and rhythm. No extra sounds. Abdomen: Soft, nontender. Bowel sounds positive. No organomegaly. No masses or hernia. No rigidi ty or rebound. Extremities: No clubbing or cyanosis. Trace edema. Skin: No rash. No nodules. Neuro: He is alert, awake, oriented x3. No acute focal deficits appreciated. Lymph Nodes: No cervical lymphadenopathy. Investigations: White blood cell count is 14.8, hemoglobin 14. His sodium is 140, BUN is 11, creati nine 0.78. Hemoglobin A1c was 5.7. Troponin 0.06. C-reactive protein is 11.2. CT head noted, no i ntracranial hemorrhage. Assessment And Recommendations: 1.Hypertensive urgency. Blood pressure is better now. Recommend to discontinue the IV drip and sta rt on oral medications, Norvasc 5 mg daily and hydrochlorothiazide 25 mg daily. Monitor blood pressu re. Adjust doses as needed. 2.Borderline troponin leak. Please obtain echocardiogram and trend 2 more sets of cardiac enzymes. 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 Neurology is following for possible LP. SR/MODL Voice ID: [id number] Report ID: [id number]
[2021-01-10] MEDS ORDERED: POTASSIUM PHOS IN 0.9 % NACL 15 MMOL/250 ML BAG IV ONE (14:30)
[2021-01-10] MEDS ORDERED: AMLODIPINE 5 MG TAB ONE (14:56)
[2021-01-10] MEDS ORDERED: hydroCHLOROthiazide 25 MG TAB ONE (14:56)
[2021-01-10] MEDS ORDERED: MAGNESIUM SULFATE 1 gm IVPB 1 GM/100 ML BAG IV ONE ×2 (14:57→15:00)
[2021-01-10] MEDS: AMLODIPINE 5 MG TAB PO SCH (15:00)
[2021-01-10] MEDS: hydroCHLOROthiazide 25 MG TAB PO SCH (15:00)
[2021-01-10] MEDS ORDERED: NA CHLORIDE 0.9% IVPB SCH (15:00)
[2021-01-10] MEDS ORDERED: ACYCLOVIR IVPB SCH (15:00)
[2021-01-10] MEDS: NA CHLORIDE 0.9% IVPB SCH (17:45)
[2021-01-10] MEDS: ACYCLOVIR IVPB SCH (17:45)
[2021-01-10] MEDS: VANCOMYCIN 2 GM in NA CHLORIDE 0.9% 500 ML IVPB SCH (19:29)
[2021-01-10] MEDS: levETIRAcetam 1,000 MG in NA CHLORIDE 0.9% 100 ML IV SCH (20:50)
[2021-01-10] MEDS ORDERED: CEFTRIAXONE 1000 MG/VIAL ONE (20:51)
[2021-01-11] MEDS: ACYCLOVIR IVPB SCH ×3 (01:00→17:00)
[2021-01-11] MEDS: NA CHLORIDE 0.9% IVPB SCH ×3 (01:00→17:00)
[2021-01-11] MEDS: INSULIN -REGULAR HUMAN 50 UNIT/0.5 ML ML SQ SCH ×4 (01:48→19:48)
[2021-01-11] MEDS ORDERED: VANCOMYCIN 2 GM in NA CHLORIDE 0.9% 500 ML IVPB SCH (02:00)
[2021-01-11 03:42] LABS: Absolute Lymphocytes (CBC) 1.4 K/uL (0.7-4.9); Basophils % 0.3 % (0-1.3); Hematocrit 41.8 % (39.6-49.0); Lymphocytes % 11.2 % (15.3-44.8); MPV 8.7 fL (7.6-11.3); RBC Red Blood Cell Count 4.52 M/uL (4.33-5.43)
[2021-01-11 04:00] LABS: ALT/SGPT 42 U/L (12-78); AST/SGOT 49 U/L (15-37); Albumin 2.7 g/dL (3.4-5.0); Alkaline Phosphatase 53 U/L (45-117); BUN Blood Urea Nitrogen 11 mg/dL (7-18); Bicarbonate 25 mmol/L (21-32); Bilirubin Total 0.8 mg/dL (0.2-1.0); Glucose Level 133 mg/dL (74-106); Magnesium 2.1 mg/dL (1.8-2.4); Phosphorus 2.1 mg/dL (2.5-4.9); Potassium 3.3 mmol/L (3.5-5.1); Sodium Level 141 mmol/L (136-145); Troponin I 0.09 ng/mL (0.0-0.045)
[2021-01-11] MEDS: VANCOMYCIN 2 GM in NA CHLORIDE 0.9% 500 ML IVPB SCH ×2 (05:08→18:00)
[2021-01-11] MEDS ORDERED: HYDRALAZINE HCL 20 MG/ML VIAL ONE ×2 (05:09→10:59)
[2021-01-11] MEDS: HYDRALAZINE HCL 20 MG/ML VIAL IV PRN ×2 (05:10→11:02)
--- NOTE | 2021-01-11 06:34 | P.PN ---
Date of Service: 01/11/21 Subjective: Patient awake, alert, oriented. Significant change compared to yesterday Reports left facial pain, states he fell forward onto the toilet. Remains tachycardic and hypertensive, reports he last drank alcohol a day prior to presentation Reports vision is intact ROS: 10 point ROS as noted above, otherwise negative Physical exam GEN: Awake, alert/oriented x3 HEENT: Left eye with ecchymosis eyelid and surrounding soft tissue CV: Sinus tachycardia, no edema Pulm: Nonlabored respiration on room air ABD: Soft, nontender, nondistended MSK: No joint swelling Integumentary: No rashes Neuro: Moves all extremities, follows commands, moves bilateral extremities, slightly tremulous Problem List Acute metabolic encephalopathy secondary to fever/possible infection Fever with unknown source: Infectious versus withdrawal Acute alcohol withdrawal Hypertensive urgency fluid/likely emergency with neuro changes Morbid obesity Continue to monitor in ICU Unclear etiology of fever, possibly infectious, possibly alcohol withdrawal. Now the patient states he has been drinking alcohol, significant history of alcohol abuse Start alcohol withdrawal assessment, start benzodiazepines Patient bermudez CT scan, pancultured, and LP attempted (unsuccessful x2). Patient now refusing lumbar puncture Neurology consulted, continue Keppra for possible seizure EEG ordered, MRI to be done today Continue some IV fluids, antipyretics Patient does not see a doctor, therefore has no past medical history Echocardiogram ordered Insulin sliding scale/Accu-Cheks Oxygen as needed Briefly on Cardene drip on admission, transitioned to IV and p.o. medications VTE: SCDs Code: Racking Technician Spent Managing Pts Care (In Minutes): 35
[2021-01-11] MEDS ORDERED: propofoL 0 MG/0 ML ML IV ONE (07:20)
[2021-01-11] MEDS ORDERED: SODIUM CHLORIDE 0.9% 10ML INJ IV PRN (07:43)
[2021-01-11] MEDS ORDERED: AMLODIPINE 5 MG TAB ONE (08:30)
[2021-01-11] MEDS ORDERED: PANTOPRAZOLE 40 MG INJ ONE ×2 (08:30→20:52)
[2021-01-11] MEDS ORDERED: hydroCHLOROthiazide 25 MG TAB ONE (08:50)
[2021-01-11] MEDS: PANTOPRAZOLE 40 MG INJ IVP SCH ×2 (08:55→21:00)
[2021-01-11] MEDS: hydroCHLOROthiazide 25 MG TAB PO SCH (08:55)
[2021-01-11] MEDS: AMLODIPINE 5 MG TAB PO SCH (08:55)
[2021-01-11] MEDS: levETIRAcetam 1,000 MG in NA CHLORIDE 0.9% 100 ML IV SCH ×2 (08:56→21:00)
[2021-01-11] MEDS: CEFTRIAXONE 2,000 MG in NA CHLORIDE 0.9% 100 ML IV SCH ×2 (08:56→21:00)
[2021-01-11] MEDS: LORazepam 2 MG/ML VIAL IV PRN ×3 (11:02→21:49)
--- NOTE | 2021-01-11 14:50 | ECHO ---
HEIGHT: 6 ft 0 in WEIGHT: 349 lb 3.2 oz DATE OF STUDY: 01/11/[address]: Pete Menard 2-DIMENSIONAL: YES M.MODE: YES DOPPLER: YES COLOR FLOW: YES TDS: YES PORTABLE: NO DEFINITY: NO BUBBLE STUDY: NO DIAGNOSIS: CARDIOMEGALY CARDIAC HISTORY: CATHERIZATION: SURGERY: PROSTHETIC VALVE: PACEMAKER: MEASUREMENTS (cm) DIASTOLIC (NORMALS) SYSTOLIC (NORMALS) IVSd 1.2 (0.6-1.2) LA Diam 3.4 (1.9-4.0) LVEF 55-60% LVIDd 5.4 (3.5-5.7) LVIDs 4.2 (2.0-3.5) %FS 23% LVPWd 1.4 (0.6-1.2) Ao Diam 3.3 (2.0-3.7) 2 DIMENSIONAL ASSESSMENT: RIGHT ATRIUM: NORMAL LEFT ATRIUM: NORMAL RIGHT VENTRICLE: NORMAL LEFT VENTRICLE: NORMAL TRICUSPID VALVE: NORMAL MITRAL VALVE: NORMAL PULMONIC VALVE: NORMAL AORTIC VALVE: NORMAL PERICARDIAL EFFUSION: NONE AORTIC ROOT: NORMAL LEFT VENTRICULAR WALL MOTION: NORMAL DOPPLER/COLOR FLOW: NORMAL COMMENTS: NORMAL LEFT VENTRICULAR EJECTION FRACTION 55-60%. NORMAL WALL MOTION. MODERATE DIASTOLIC DYSFUNCTION. TECHNOLOGIST: Birdie TEJEDA
[2021-01-11] MEDS ORDERED: LORazepam 2 MG/ML VIAL ONE ×2 (15:03→21:39)
--- NOTE | 2021-01-11 15:36 | P.CNS ---
Date of Consult: 01/11/21 Chief Complaint: AMS History of Present Illness: The patient is a 70-year-old male with no significant past medical history who presented to the emergency department secondary to altered mental status, confusion and fever. Prior to admission patient was found in his restroom on the bathroom floor after hitting his head. Patient states that he did not lose consciousness however he does not remember the event. Per the patient could not move or talk and was only moaning/groaning. Patient was febrile on admission with a T-max of 101.4. Blood cultures show no growth, chest x-ray/CT imaging also negative. Per patient has a history of alcohol abuse, and alcohol level was 10. Patient empirically started on acyclovir, vancomycin, and Rocephin. Lumbar puncture was attempted however was unsuccessful. ROS unable to obtain as patient is very somnolent. Allergies No Known Allergies Allergy (Unverified 01/10/21 01:40) Home Medications: NK [No Home Meds] 01/10/21 - Past Medical/Surgical History Diabetic: No -: scalp lac repair - Social History Alcohol use: No CD- Drugs: No Caffeine use: Yes Place of Residence: Home Review of Systems 10-point ROS is otherwise unremarkable Physical Examination Temp Pulse Resp BP Pulse Ox 98.5 F 94 H 18 134/84 100 01/11/21 07:00 01/11/21 14:00 01/11/21 14:00 01/11/21 14:00 01/11/21 14:00 General: Confused, Obese, Other (difficult to arouse) HEENT: Atraumatic, Normocephalic Neck: Supple, JVD not distended Respiratory: Clear to auscultation bilaterally, Normal air movement Cardiovascular: No edema, Normal pulses Capillary refill: <2 Seconds Gastrointestinal: Normal bowel sounds, Soft and benign, Non-distended Musculoskeletal: No clubbing, No swelling, No contractures, No erythema Integumentary: No rashes, No breakdown, No significant lesion, No tenderness/swelling Conclusions/Impression: Antibiotics: Vancomycin Start: 01/10 Rocephin Start: 01/10 Antiviral Acyclovir Start: 01/10 Assessment/plan Fever of unknown origin On admission patient had a T-max of 101.4. Cultures negative, can scan negative. Lumbar puncture was attempted however unsuccessful. Fever likely related to alcohol withdrawal. Continue prophylactic antibiotics at this time, once WBC is in normal range recommend discontinuing. Alcohol abuse? Altered mental status -medical management per primary team -plan of care discussed with Dr. Garcia -thank you for consultation
[2021-01-11] MEDS ORDERED: LEVETIRACETAM 500 MG/5 ML VIAL IV ONE (20:51)
[2021-01-11] MEDS ORDERED: CEFTRIAXONE 1000 MG/VIAL ONE (20:55)
[2021-01-11] MEDS ORDERED: NA CHLORIDE 0.9% 250 ML ONE (20:55)
[2021-01-11] MEDS ORDERED: NA CHLORIDE 0.9% 100 ML ONE (20:56)
[2021-01-12] MEDS: NA CHLORIDE 0.9% IVPB SCH ×3 (01:00→17:34)
[2021-01-12] MEDS: ACYCLOVIR IVPB SCH ×3 (01:00→17:34)
[2021-01-12] MEDS: INSULIN -REGULAR HUMAN 50 UNIT/0.5 ML ML SQ SCH ×3 (01:48→13:48)
[2021-01-12 04:15] LABS: Absolute Lymphocytes (CBC) 1.4 K/uL (0.7-4.9); Basophils % 0.4 % (0-1.3); Hematocrit 43.5 % (39.6-49.0); Lymphocytes % 8.8 % (15.3-44.8); MPV 8.7 fL (7.6-11.3); RBC Red Blood Cell Count 4.68 M/uL (4.33-5.43)
[2021-01-12 04:51] LABS: Albumin 2.7 g/dL (3.4-5.0); Bilirubin Total 0.8 mg/dL (0.2-1.0); Phosphorus 2.9 mg/dL (2.5-4.9); Potassium 3.5 mmol/L (3.5-5.1); Protein, Total 6.9 g/dL (6.4-8.2)
[2021-01-12 04:53] LABS: Troponin I 0.59 ng/mL (0.0-0.045)
[2021-01-12] MEDS ORDERED: ENOXAPARIN 100 MG/ML SYR SQ ONE ×2 (05:59→16:30)
[2021-01-12] MEDS ORDERED: ENOXAPARIN 60 MG/0.6 ML SQ ONE (06:00)
--- NOTE | 2021-01-12 06:36 | EEG ---
CHART: [id number] TEST ID#: [id number] DATE OF STUDY: 01/11/2021 THE EEG WAS RECORDED PORTABLE IN THE EMERGENCY ROOM (ICU HOLD) ON A 17 CHANNEL MACHINE. ELECTRODES WERE APPLIED IN THE USUAL MANNER USING THE INTERNATIONAL 10-20 SYSTEM. THE WAKING BACKGROUND RHYTHM IN THIS RECORD CONSISTS OF FAIRLY WELL DEVELOPED AND FAIRLY WELL ORGANIZED WAVES OF 7-8 HZ., IN A WIDE DISTRIBUTION WHICH ATTENUATE NORMALLY WITH EYE OPENING. LOW-VOLTAGE 18-22 HZ ACTIVITY IS EXPRESSED IN THE FRONTAL REGIONS. MODERATE VOLTAGE 3-4 HZ ACTIVITIY IS EXPRESSED INTERMITTENTLY IN THE FRONTAL REGIONS. THERE ARE NO FOCAL OR LATERALIZING FEATURES. NO EPILEPTIFORM ACTIVITY APPEARS. SLEEP DID NOT OCCUR. HYPERVENTILATION WAS NOT PERFORMED. PHOTIC STIMULATION PRODUCED NO DRIVING BILATERALLY. IMPRESSION: THIS IS A MILDLY ABNORMAL ROUTINE AWAKE EEG DUE TO THE PRESENCE OF A MILDLY SLOW BACKGROUND. THIS IS A NON-SPECIFIC FINDING INDICATING THE PRESENCE OF A MILD DIFFUSE DISTURBANCE IN CEREBRAL ACTIVITY. NO EPILEPTIFORM ACTIVITY IS EXPRESSED IN THIS STUDY.
[2021-01-12] MEDS ORDERED: hydroCHLOROthiazide 25 MG TAB ONE (08:27)
[2021-01-12] MEDS ORDERED: PANTOPRAZOLE 40 MG INJ ONE ×2 (08:27→21:11)
[2021-01-12] MEDS ORDERED: AMLODIPINE 5 MG TAB ONE (08:27)
[2021-01-12] MEDS ORDERED: LABETALOL 20 MG/4ML SYRINGE IV ONE ×2 (08:27→13:19)
[2021-01-12] MEDS: PANTOPRAZOLE 40 MG INJ IVP SCH ×2 (08:41→21:00)
[2021-01-12] MEDS: VANCOMYCIN 2 GM in NA CHLORIDE 0.9% 500 ML IVPB SCH ×2 (08:41→18:51)
[2021-01-12] MEDS: LABETALOL 20 MG/4ML SYRINGE IV PRN ×2 (08:42→13:24)
[2021-01-12] MEDS: hydroCHLOROthiazide 25 MG TAB PO SCH (08:45)
[2021-01-12] MEDS: AMLODIPINE 5 MG TAB PO SCH (08:46)
--- NOTE | 2021-01-12 09:21 | RAD REPORT ---
EXAM DESCRIPTION: RAD - Chest Single View - 01/12/2021 8:47 am CLINICAL HISTORY: Hypoxia Chest pain. COMPARISON: Chest Single View dated 01/09/2021 FINDINGS: Portable technique limits examination quality. Mild bilateral pulmonary opacities are present in likely representing pulmonary edema or a viral infe ction. The heart is upper limit of normal in size. No displaced fractures.
[2021-01-12] MEDS: levETIRAcetam 1,000 MG in NA CHLORIDE 0.9% 100 ML IV SCH ×2 (09:28→21:00)
[2021-01-12] MEDS: CEFTRIAXONE 2,000 MG in NA CHLORIDE 0.9% 100 ML IV SCH ×2 (09:30→21:00)
[2021-01-12] MEDS ORDERED: LORazepam 2 MG/ML VIAL ONE ×4 (09:44→22:59)
[2021-01-12] MEDS: LORazepam 2 MG/ML VIAL IV PRN ×2 (09:45→23:03)
--- NOTE | 2021-01-12 11:16 | P.PN ---
Subjective Date of Service: 01/12/21 Chief Complaint: AMS Patient seen examined at bedside, WBC up trending. Patient remains afebrile. Review of Systems 10-point ROS is otherwise unremarkable Physical Examination - Vital Signs Temperature: 98.6 F Blood Pressure: 156/84 Pulse: 99 Respirations: 19 Pulse Ox (%): 95 - Studies Laboratory Last Values WBC 14.10 K/uL (4.3-10.9) H 01/09/21 19:25 RBC 4.76 M/uL (4.33-5.43) 01/09/21 19:25 Hgb 14.6 g/dL (13.6-17.9) 01/09/21 19:25 Hct 43.8 % (39.6-49.0) 01/09/21 19:25 MCV 92.1 fL (80-100) 01/09/21 19:25 MCH 30.8 pg (27.0-35.0) 01/09/21 19:25 MCHC 33.4 g/dL (32.0-36.0) 01/09/21 19:25 RDW 13.6 % (12.1-15.2) 01/09/21 19:25 Plt Count 307 K/uL (152-406) 01/09/21 19:25 MPV 8.5 fL (7.6-11.3) 01/09/21 19:25 Neutrophils % 87.0 % (41.7-73.7) H 01/09/21 19:25 Lymphocytes % 8.8 % (15.3-44.8) L 01/09/21 19:25 Monocytes % 3.8 % (3.3-12.3) 01/09/21 19:25 Eosinophils % 0.0 % (0-4.4) 01/09/21 19:25 Basophils % 0.4 % (0-1.3) 01/09/21 19:25 Absolute Neutrophils 12.3 K/uL (1.8-8.0) H 01/09/21 19:25 Absolute Lymphocytes 1.2 K/uL (0.7-4.9) 01/09/21 19:25 Absolute Monocytes 0.5 K/uL (0.1-1.3) 01/09/21 19:25 Absolute Eosinophils 0.0 K/uL (0-0.5) 01/09/21 19:25 Absolute Basophils 0.1 K/uL (0-0.5) 01/09/21 19:25 Platelet Estimate Adeq 01/09/21 19:25 Morphology Comment Not seen (NOT SEEN) 01/09/21 19:25 PT 12.6 SECONDS (9.5-12.5) H 01/09/21 19:25 INR 1.09 01/09/21 19:25 APTT 27.3 SECONDS (24.3-36.9) 01/09/21 19:25 pH 7.47 (7.35-7.45) H 01/09/21 20:40 pCO2 36.5 mmHG (35-45) 01/09/21 20:40 pO2 70.1 mmHG (75-100) L 01/09/21 20:40 HCO3 26.5 mmol/L (22-28) 01/09/21 20:40 Base Excess 3.1 mmol/L 01/09/21 20:40 Oxyhemoglobin 92.5 % (94-97) L 01/09/21 20:40 ABG O2 Sat (Measured) 94.9 % (92-98.5) 01/09/21 20:40 ABG Carboxyhemoglobin 1.7 % (0-1.5) H 01/09/21 20:40 ABG Methemoglobin 0.8 % (0-1.5) 01/09/21 20:40 Other Total Hgb 14.9 g/dl (12-18) 01/09/21 20:40 Inspired O2 21.0 % 01/09/21 20:40 Sodium 137 mmol/L (136-145) 01/09/21 19:25 Potassium 4.0 mmol/L (3.5-5.1) 01/09/21 19:25 Chloride 103 mmol/L (98-107) 01/09/21 19:25 Carbon Dioxide 25 mmol/L (21-32) 01/09/21 19:25 BUN 10 mg/dL (7-18) 01/09/21 19:25 Creatinine 1.04 mg/dL (0.55-1.3) 01/09/21 19:25 Whole Bld Creatinine 0.9 mg/dL (0.6-1.3) 01/09/21 19:25 Estimated GFR 70 mL/min (=/>90) L 01/09/21 19:25 Glucose 158 mg/dL (74-106) H 01/09/21 19:25 POC Glucose 141 mg/dL (65-120) H 01/09/21 19:24 Lactic Acid 2.3 mmol/L (0.4-2.0) H 01/09/21 20:51 Calcium 9.0 mg/dL (8.5-10.1) 01/09/21 19:25 Magnesium 1.9 mg/dL (1.8-2.4) 01/09/21 19:25 Total Bilirubin 0.8 mg/dL (0.2-1.0) 01/09/21 19:25 Direct Bilirubin 0.2 mg/dL (0-0.2) 01/09/21 19:25 AST 33 U/L (15-37) 01/09/21 19:25 ALT 25 U/L (12-78) 01/09/21 19:25 Alkaline Phosphatase 63 U/L (45-117) 01/09/21 19:25 Ammonia 19 umol/L (19-54) 01/09/21 20:42 Creatine Kinase 846 U/L (39-308) H 01/09/21 19:25 Rapid Troponin I 0.02 ng/mL (0.0-0.045) 01/09/21 19:25 NT-Pro-B Natriuret Pep 2393 pg/mL (<125) H 01/09/21 19:25 Serum Total Protein 7.9 g/dL (6.4-8.2) 01/09/21 19:25 Albumin 3.2 g/dL (3.4-5.0) L 01/09/21 19:25 Globulin 4.7 g/dL (2.3-3.5) H 01/09/21 19:25 Albumin/Globulin Ratio 0.7 (1.1-1.8) L 01/09/21 19:25 Procalcitonin < 0.05 ng/mL (<0.050) 01/09/21 20:51 Urine pH 6.0 (5.0-7.0) 01/09/21 20:35 Ur Specific [place] 1.020 (1.005-1.030) 01/09/21 20:35 Glucose (UA)(Auto) Negative (Negative) 01/09/21 20:35 Urine Ketones 1+ (Negative) H 01/09/21 20:35 Urine Blood 2+ (Negative) H 01/09/21 20:35 Urine Nitrite Negative (Negative) 01/09/21 20:35 Ur Leukocyte Esterase Negative (Negative) 01/09/21 20:35 Urine RBC 20-50 /HPF (NONE SEEN) H 01/09/21 20:21 Urine WBC <5 /HPF (<5) 01/09/21 20:21 Ur Squamous Epith Cells <5 /HPF (NONE SEEN) 01/09/21 20:21 Urine Bacteria <20 /HPF (NONE SEEN) 01/09/21 20:21 Urine Mucus 4+ /HPF (NONE SEEN) H 01/09/21 20:21 Urine Culture Reflexed Not needed 01/09/21 20:21 Urine Total Protein 2+ (Negative) H 01/09/21 20:35 Fluid Source Cancelled 01/09/21 21:59 Fluid Volume Cancelled 01/09/21 21:59 Fluid Color Cancelled 01/09/21 21:59 Fluid Appearance Cancelled 01/09/21 21:59 Fld Supernatant Color Cancelled 01/09/21 21:59 Fluid WBC Cancelled 01/09/21 21:59 Fluid RBC Cancelled 01/09/21 21:59 Fluid Neutrophils Cancelled 01/09/21 21:59 Fluid Lymphocytes Cancelled 01/09/21 21:59 Fluid Eosinophils Cancelled 01/09/21 21:59 Fluid Mononuclear Cell Cancelled 01/09/21 21:59 CSF Glucose Cancelled 01/09/21 21:59 CSF Total Protein Cancelled 01/09/21 21:59 Opiates Screen Negative (NEGATIVE) 01/09/21 20:21 Methadone Screen Negative (NEGATIVE) 01/09/21 20:21 Ur Barbiturates Screen Negative (NEGATIVE) 01/09/21 20:21 Ur Phencyclidine Scrn Negative (NEGATIVE) 01/09/21 20:21 Amphetamines Screen Negative (NEGATIVE) 01/09/21 20:21 Benzodiazepines Screen Negative (NEGATIVE) 01/09/21 20:21 Cocaine Screen Negative (NEGATIVE) 01/09/21 20:21 Ur THC Screen Negative (NEGATIVE) 01/09/21 20:21 Plasma/Serum Alcohol < 10 mg/dL (<10) 01/09/21 19:25 Influenza Type A RNA Negative (NEGATIVE) 01/09/21 21:23 Influenza Type B RNA Negative (NEGATIVE) 01/09/21 21:23 SARS-CoV-2 RNA (RT-PCR) Negative (NEGATIVE) 01/09/21 21:23 Smear Scan Ok (OK) 01/09/21 19:25 Assessment And Plan - Plan Physical exam: General: Confused, Obese, Other (difficult to arouse) HEENT: Atraumatic, Normocephalic Neck: Supple, JVD not distended Respiratory: Clear to auscultation bilaterally, Normal air movement Cardiovascular: No edema, Normal pulses Capillary refill: <2 Seconds Gastrointestinal: Normal bowel sounds, Soft and benign, Non-distended Musculoskeletal: No clubbing, No swelling, No contractures, No erythema Integumentary: No rashes, No breakdown, No significant lesion, No tenderness/swelling Conclusions/Impression: Antibiotics: Vancomycin Start: 01/10 Rocephin Start: 01/10 Antiviral Acyclovir Start: 01/10 Assessment/plan Fever of unknown origin On admission patient had a T-max of 101.4. Cultures negative, panscan neg. Lumbar puncture was attempted however unsuccessful. Fever likely related to alcohol withdrawal. Continue prophylactic antibiotics at this time, once WBC is in normal range recommend discontinuing. Alcohol abuse? Altered mental status -medical management per primary team -plan of care discussed with Dr. Garcia -thank you for consultation
[2021-01-12] MEDS ORDERED: FLUMAZENIL 0.1 MG/ML (5 mL VIAL) IV PRN (12:05)
[2021-01-12] MEDS: FUROSEMIDE 40 MG/4 ML VIAL IV SCH ×2 (12:17→16:31)
[2021-01-12] MEDS: LORazepam 2 MG/ML VIAL IV SCH ×3 (12:17→21:00)
[2021-01-12] MEDS ORDERED: FUROSEMIDE 40 MG/4 ML VIAL ONE (16:25)
--- NOTE | 2021-01-12 20:01 | P.PN ---
Subjective Date of Service: 01/12/21 Chief Complaint: AMS Patient is somnolent, easily arousable. He is agitated and not clear to be in alcohol withdrawal. He is tachycardic. No fever recorded. Physical Examination - Vital Signs Temperature: 98.4 F Blood Pressure: 139/87 Pulse: 101 Respirations: 16 Pulse Ox (%): 94 - Physical Exam General: In no apparent distress, Confused, Other (Agitated and restless) HEENT: Mucous membr. moist/pink, Other (Left periorbital bruise) Neck: JVD not distended Respiratory: Clear to auscultation bilaterally, Normal air movement Cardiovascular: No edema, Normal S1 S2, Other (Tachycardia) Gastrointestinal: Normal bowel sounds, Soft and benign, Non-distended, No tenderness, Other (Obese abdomen) Musculoskeletal: No swelling, No tenderness Integumentary: No breakdown, No cyanosis Neurological: Other (No focal motor deficit) Assessment And Plan - Plan Problem List Acute metabolic encephalopathy secondary to fever/possible infection Fever with unknown source: Infectious versus withdrawal Acute alcohol withdrawal Hypertensive urgency fluid/likely emergency with neuro changes Morbid obesity Continue to monitor in ICU Unclear etiology of fever, possibly infectious, possibly alcohol withdrawal. CIWA protocol initiated Patient bermudez CT scan unremarkable except sinusitis. panculturee: No growth to date. LP attempted (unsuccessful x2). Patient refused further LP attempts Patient now refusing lumbar puncture EEG shows no epileptic activity. Unable to do MRI of the brain today due to patient's restlessness and agitation. Will attempt MRI of the brain tomorrow once his alcohol withdrawal is better controlled. Continue IV fluids. Echocardiogram: Normal EF. Moderate diastolic dysfunction. Continue insulin sliding scale/Accu-Cheks Oxygen as needed Continue empiric antibiotics. Patient started on amlodipine for hypertension.
[2021-01-12] MEDS ORDERED: LEVETIRACETAM 500 MG/5 ML VIAL IV ONE (21:10)
[2021-01-12] MEDS ORDERED: CEFTRIAXONE 1000 MG/VIAL ONE (21:11)
[2021-01-12] MEDS ORDERED: NA CHLORIDE 0.9% 100 ML ONE (21:12)
[2021-01-12] MEDS ORDERED: NA CHLORIDE 0.9% 250 ML ONE (21:12)
[2021-01-12] MEDS ORDERED: HYDRALAZINE HCL 20 MG/ML VIAL ONE (22:26)
[2021-01-12] MEDS: HYDRALAZINE HCL 20 MG/ML VIAL IV PRN (22:39)
[2021-01-13] MEDS: NA CHLORIDE 0.9% IVPB SCH ×2 (01:00→09:03)
[2021-01-13] MEDS: ACYCLOVIR IVPB SCH ×2 (01:00→09:03)
[2021-01-13] MEDS: LORazepam 2 MG/ML VIAL IV SCH ×6 (01:00→20:42)
[2021-01-13] MEDS ORDERED: LORazepam 2 MG/ML VIAL ONE ×5 (01:45→07:44)
[2021-01-13] MEDS: LORazepam 2 MG/ML VIAL IV PRN ×2 (02:28→03:28)
[2021-01-13] MEDS: HYDRALAZINE HCL 20 MG/ML VIAL IV PRN ×3 (02:30→22:10)
[2021-01-13 04:33] LABS: Absolute Lymphocytes (CBC) 1.1 K/uL (0.7-4.9); Basophils % 0.7 % (0-1.3); Hematocrit 42.8 % (39.6-49.0); Lymphocytes % 8.7 % (15.3-44.8); MPV 8.6 fL (7.6-11.3); RBC Red Blood Cell Count 4.62 M/uL (4.33-5.43)
[2021-01-13 05:18] LABS: Albumin 2.5 g/dL (3.4-5.0); Magnesium 2.1 mg/dL (1.8-2.4); Phosphorus 3.9 mg/dL (2.5-4.9); Potassium 3.4 mmol/L (3.5-5.1); Protein, Total 6.7 g/dL (6.4-8.2)
[2021-01-13] MEDS ORDERED: ENOXAPARIN 100 MG/ML SYR SQ ONE (07:45)
[2021-01-13] MEDS ORDERED: FOLIC ACID 1 MG TABLET ONE (07:45)
[2021-01-13] MEDS ORDERED: AMLODIPINE 5 MG TAB ONE (07:45)
[2021-01-13] MEDS ORDERED: THIAMINE 200 MG/2 ML INJ ONE (07:45)
[2021-01-13] MEDS ORDERED: PANTOPRAZOLE 40 MG INJ ONE ×2 (07:45→21:03)
[2021-01-13] MEDS ORDERED: hydroCHLOROthiazide 25 MG TAB ONE (07:45)
[2021-01-13] MEDS ORDERED: LABETALOL 20 MG/4ML SYRINGE IV ONE ×2 (07:46→16:26)
[2021-01-13] MEDS: LABETALOL 20 MG/4ML SYRINGE IV PRN ×2 (07:51→16:26)
[2021-01-13] MEDS: hydroCHLOROthiazide 25 MG TAB PO SCH (07:52)
[2021-01-13] MEDS: PANTOPRAZOLE 40 MG INJ IVP SCH ×2 (07:52→21:16)
[2021-01-13] MEDS: AMLODIPINE 5 MG TAB PO SCH (07:52)
[2021-01-13] MEDS: THIAMINE 200 MG/2 ML INJ IVP SCH (07:52)
[2021-01-13] MEDS: FOLIC ACID 1 MG TABLET PO SCH (07:52)
[2021-01-13] MEDS: levETIRAcetam 1,000 MG in NA CHLORIDE 0.9% 100 ML IV SCH ×2 (07:52→21:16)
[2021-01-13] MEDS: VANCOMYCIN 2 GM in NA CHLORIDE 0.9% 500 ML IVPB SCH (07:53)
[2021-01-13] MEDS: CEFTRIAXONE 2,000 MG in NA CHLORIDE 0.9% 100 ML IV SCH ×2 (08:16→21:13)
[2021-01-13] MEDS ORDERED: FLUMAZENIL 0.1 MG/ML (5 mL VIAL) IV ONE ×2 (08:56→11:11)
[2021-01-13] MEDS ORDERED: THIAMINE HCL 100 MG TABLET PO SCH (09:00)
[2021-01-13] MEDS ORDERED: KCL 20 MEQ/100 mL IVPB 20 MEQ/100 ML BAG IV ONE ×2 (10:00→10:12)
[2021-01-13] MEDS ORDERED: NA CHLORIDE 0.9% 1,000 ML IV SCH ×2 (10:00→11:48)
--- NOTE | 2021-01-13 10:03 | RAD REPORT ---
EXAM DESCRIPTION: CT - Head Brain Wo Cont - 01/13/2021 9:55 am CLINICAL HISTORY: AMS COMPARISON: Facial Bones W/ Mpr dated 01/09/2021; Head C Spine Cap W Con dated 01/09/2021 TECHNIQUE: All CT scans are performed using dose optimization technique as appropriate and may inclu de automated exposure control or mA/KV adjustment according to patient size. FINDINGS: No intracranial hemorrhage, hydrocephalus or extra-axial fluid collection.No areas of brai n edema or evidence of midline shift. Chronic small vessel ischemic changes. Remote basal ganglia lac unar infarcts. Cerebral atrophy. Paranasal sinus thickening. The calvarium is intact. IMPRESSION: No acute intracranial abnormality. No significant change compared with 01/09/2021
[2021-01-13] MEDS ORDERED: NA CHLORIDE 0.9% 1,000 ML ONE (10:12)
--- NOTE | 2021-01-13 11:34 | P.PN ---
Subjective Date of Service: 01/13/21 Chief Complaint: AMS Patient seen examined at bedside, he can't worsening, creatinine today 4.14. Vancomycin trough very elevated, will hold vancomycin till trough is less than 17. Acyclovir changed from Q 8 to Q 24. Review of Systems 10-point ROS is otherwise unremarkable Physical Examination - Vital Signs Temperature: 98.6 F Blood Pressure: 107/66 Pulse: 112 Respirations: 18 Pulse Ox (%): 99 - Studies Laboratory Last Values WBC 14.10 K/uL (4.3-10.9) H 01/09/21 19:25 RBC 4.76 M/uL (4.33-5.43) 01/09/21 19:25 Hgb 14.6 g/dL (13.6-17.9) 01/09/21 19:25 Hct 43.8 % (39.6-49.0) 01/09/21 19:25 MCV 92.1 fL (80-100) 01/09/21 19:25 MCH 30.8 pg (27.0-35.0) 01/09/21 19:25 MCHC 33.4 g/dL (32.0-36.0) 01/09/21 19:25 RDW 13.6 % (12.1-15.2) 01/09/21 19:25 Plt Count 307 K/uL (152-406) 01/09/21 19:25 MPV 8.5 fL (7.6-11.3) 01/09/21 19:25 Neutrophils % 87.0 % (41.7-73.7) H 01/09/21 19:25 Lymphocytes % 8.8 % (15.3-44.8) L 01/09/21 19:25 Monocytes % 3.8 % (3.3-12.3) 01/09/21 19:25 Eosinophils % 0.0 % (0-4.4) 01/09/21 19:25 Basophils % 0.4 % (0-1.3) 01/09/21 19:25 Absolute Neutrophils 12.3 K/uL (1.8-8.0) H 01/09/21 19:25 Absolute Lymphocytes 1.2 K/uL (0.7-4.9) 01/09/21 19:25 Absolute Monocytes 0.5 K/uL (0.1-1.3) 01/09/21 19:25 Absolute Eosinophils 0.0 K/uL (0-0.5) 01/09/21 19:25 Absolute Basophils 0.1 K/uL (0-0.5) 01/09/21 19:25 Platelet Estimate Adeq 01/09/21 19:25 Morphology Comment Not seen (NOT SEEN) 01/09/21 19:25 PT 12.6 SECONDS (9.5-12.5) H 01/09/21 19:25 INR 1.09 01/09/21 19:25 APTT 27.3 SECONDS (24.3-36.9) 01/09/21 19:25 pH 7.47 (7.35-7.45) H 01/09/21 20:40 pCO2 36.5 mmHG (35-45) 01/09/21 20:40 pO2 70.1 mmHG (75-100) L 01/09/21 20:40 HCO3 26.5 mmol/L (22-28) 01/09/21 20:40 Base Excess 3.1 mmol/L 01/09/21 20:40 Oxyhemoglobin 92.5 % (94-97) L 01/09/21 20:40 ABG O2 Sat (Measured) 94.9 % (92-98.5) 01/09/21 20:40 ABG Carboxyhemoglobin 1.7 % (0-1.5) H 01/09/21 20:40 ABG Methemoglobin 0.8 % (0-1.5) 01/09/21 20:40 Other Total Hgb 14.9 g/dl (12-18) 01/09/21 20:40 Inspired O2 21.0 % 01/09/21 20:40 Sodium 137 mmol/L (136-145) 01/09/21 19:25 Potassium 4.0 mmol/L (3.5-5.1) 01/09/21 19:25 Chloride 103 mmol/L (98-107) 01/09/21 19:25 Carbon Dioxide 25 mmol/L (21-32) 01/09/21 19:25 BUN 10 mg/dL (7-18) 01/09/21 19:25 Creatinine 1.04 mg/dL (0.55-1.3) 01/09/21 19:25 Whole Bld Creatinine 0.9 mg/dL (0.6-1.3) 01/09/21 19:25 Estimated GFR 70 mL/min (=/>90) L 01/09/21 19:25 Glucose 158 mg/dL (74-106) H 01/09/21 19:25 POC Glucose 141 mg/dL (65-120) H 01/09/21 19:24 Lactic Acid 2.3 mmol/L (0.4-2.0) H 01/09/21 20:51 Calcium 9.0 mg/dL (8.5-10.1) 01/09/21 19:25 Magnesium 1.9 mg/dL (1.8-2.4) 01/09/21 19:25 Total Bilirubin 0.8 mg/dL (0.2-1.0) 01/09/21 19:25 Direct Bilirubin 0.2 mg/dL (0-0.2) 01/09/21 19:25 AST 33 U/L (15-37) 01/09/21 19:25 ALT 25 U/L (12-78) 01/09/21 19:25 Alkaline Phosphatase 63 U/L (45-117) 01/09/21 19:25 Ammonia 19 umol/L (19-54) 01/09/21 20:42 Creatine Kinase 846 U/L (39-308) H 01/09/21 19:25 Rapid Troponin I 0.02 ng/mL (0.0-0.045) 01/09/21 19:25 NT-Pro-B Natriuret Pep 2393 pg/mL (<125) H 01/09/21 19:25 Serum Total Protein 7.9 g/dL (6.4-8.2) 01/09/21 19:25 Albumin 3.2 g/dL (3.4-5.0) L 01/09/21 19:25 Globulin 4.7 g/dL (2.3-3.5) H 01/09/21 19:25 Albumin/Globulin Ratio 0.7 (1.1-1.8) L 01/09/21 19:25 Procalcitonin < 0.05 ng/mL (<0.050) 01/09/21 20:51 Urine pH 6.0 (5.0-7.0) 01/09/21 20:35 Ur Specific [place] 1.020 (1.005-1.030) 01/09/21 20:35 Glucose (UA)(Auto) Negative (Negative) 01/09/21 20:35 Urine Ketones 1+ (Negative) H 01/09/21 20:35 Urine Blood 2+ (Negative) H 01/09/21 20:35 Urine Nitrite Negative (Negative) 01/09/21 20:35 Ur Leukocyte Esterase Negative (Negative) 01/09/21 20:35 Urine RBC 20-50 /HPF (NONE SEEN) H 01/09/21 20:21 Urine WBC <5 /HPF (<5) 01/09/21 20:21 Ur Squamous Epith Cells <5 /HPF (NONE SEEN) 01/09/21 20:21 Urine Bacteria <20 /HPF (NONE SEEN) 01/09/21 20:21 Urine Mucus 4+ /HPF (NONE SEEN) H 01/09/21 20:21 Urine Culture Reflexed Not needed 01/09/21 20:21 Urine Total Protein 2+ (Negative) H 01/09/21 20:35 Fluid Source Cancelled 01/09/21 21:59 Fluid Volume Cancelled 01/09/21 21:59 Fluid Color Cancelled 01/09/21 21:59 Fluid Appearance Cancelled 01/09/21 21:59 Fld Supernatant Color Cancelled 01/09/21 21:59 Fluid WBC Cancelled 01/09/21 21:59 Fluid RBC Cancelled 01/09/21 21:59 Fluid Neutrophils Cancelled 01/09/21 21:59 Fluid Lymphocytes Cancelled 01/09/21 21:59 Fluid Eosinophils Cancelled 01/09/21 21:59 Fluid Mononuclear Cell Cancelled 01/09/21 21:59 CSF Glucose Cancelled 01/09/21 21:59 CSF Total Protein Cancelled 01/09/21 21:59 Opiates Screen Negative (NEGATIVE) 01/09/21 20:21 Methadone Screen Negative (NEGATIVE) 01/09/21 20:21 Ur Barbiturates Screen Negative (NEGATIVE) 01/09/21 20:21 Ur Phencyclidine Scrn Negative (NEGATIVE) 01/09/21 20:21 Amphetamines Screen Negative (NEGATIVE) 01/09/21 20:21 Benzodiazepines Screen Negative (NEGATIVE) 01/09/21 20:21 Cocaine Screen Negative (NEGATIVE) 01/09/21 20:21 Ur THC Screen Negative (NEGATIVE) 01/09/21 20:21 Plasma/Serum Alcohol < 10 mg/dL (<10) 01/09/21 19:25 Influenza Type A RNA Negative (NEGATIVE) 01/09/21 21:23 Influenza Type B RNA Negative (NEGATIVE) 01/09/21 21:23 SARS-CoV-2 RNA (RT-PCR) Negative (NEGATIVE) 01/09/21 21:23 Smear Scan Ok (OK) 01/09/21 19:25 Assessment And Plan - Plan Physical exam: General: Confused, Obese, Other (difficult to arouse) HEENT: Atraumatic, Normocephalic Neck: Supple, JVD not distended Respiratory: Clear to auscultation bilaterally, Normal air movement Cardiovascular: No edema, Normal pulses Capillary refill: <2 Seconds Gastrointestinal: Normal bowel sounds, Soft and benign, Non-distended Musculoskeletal: No clubbing, No swelling, No contractures, No erythema Integumentary: No rashes, No breakdown, No significant lesion, No tenderness/swelling Conclusions/Impression: Antibiotics: Vancomycin Start: 01/10 Rocephin Start: 01/10 Antiviral Acyclovir Start: 01/10 Assessment/plan Fever of unknown origin On admission patient had a T-max of 101.4. Cultures negative, panscan neg. Lumbar puncture was attempted however unsuccessful. Fever likely related to alcohol withdrawal. Continue prophylactic antibiotics at this time, once WBC is in normal range recommend discontinuing. REGGIE Vancomycin trough of the 48.3, however is not likely be a true trough. We will hold vancomycin until all the trough levels less than 17. Acyclovir switch from Q 8 hr to Q 24hr. Continue to monitor patient closely. Alcohol abuse? Altered mental status Morbid obesity -medical management per primary team -plan of care discussed with Dr. Garcia -thank you for consultation
--- NOTE | 2021-01-13 11:56 | RAD REPORT ---
EXAM DESCRIPTION: US - Renal Ultrasound-Complete - 01/13/2021 11:24 am CLINICAL HISTORY: REGGIE COMPARISON: No comparisons FINDINGS: Both kidneys are normal in size, shape and echotexture. The right kidney measures 11.1 cm. No hydronephrosis, focal mass or perinephric fluid. The left kidney measures 9.7 cm. No hydronephrosis, focal mass or perinephric fluid. IMPRESSION: Unremarkable renal sonogram.
[2021-01-13] MEDS ORDERED: HYDRALAZINE HCL 20 MG/ML VIAL ONE ×2 (12:21→22:09)
[2021-01-13] MEDS ORDERED: NACHLORIDE 0.45% 1,000 ML with NA BICARB 8.4% 75 MEQ IV SCH ×2 (13:00)
[2021-01-13] MEDS: SOD BICARB 150 MEQ in STERILE WATER 1000 ML IVBAG IV SCH (13:07)
[2021-01-13 13:22] LABS: Urine Appearance CLOUDY (Clear); Urine Bilirubin NEGATIVE (Negative); Urine Blood 3+ (Negative); Urine Color YELLOW (Yellow); Urine Glucose NEGATIVE (Negative); Urine Microscopic Reflex ORDER UMIC; Urine Protein 2+ (Negative); Urine Urobilinogen 0.2 mg/dL (0.2-1.0); Urine pH 5.5 (5.0-7.0)
[2021-01-13 13:39] LABS: Urine Bacteria 20-50 /HPF (NONE SEEN); Urine RBC >50 /HPF (NONE SEEN)
--- NOTE | 2021-01-13 14:04 | CON ---
Date of Consultation: 01/13/2021 Reason For Consultation: Elevated BUN and creatinine, fluid management. History Of Present Illness: All the information has been obtained from the record as patient's altered mental status. This is a 70-year-old gentleman with significant past medical history of altered mental status, confusion. Promptly the patient approached to the hospital after he tripped down and hit his head, came to the hospital. Upon arrival to the hospital, the patient was altered. The patient had EEG, did not report any seizure activity. The patient had a partly trauma to his left eye with the process around the orbital area. Upon arrival to the hospital on the , creatinine was 1 and down on the , down to 0.7, then gradually climb up, yesterday was 1.6 and today 4.1. For that reason, we have been consulted. The patient maintained good urine output upon clear. Reviewing the record for the patient, the patient was on vancomycin. Vancomycin trough day before yesterday 15, today was 48. Vancomycin was held. The patient's urine drug screen was negative. The patient also received Lasix yesterday because of wheezing. Reviewing the record for the patient did not show any other insulting medication, no nonsteroidal use. The only insulting medication was the Lasix was given yesterday. There is no hypotension. The patient also was on acyclovir, again as I mentioned, and on vancomycin. Past Medical History: None obtainable. Past Surgical History: None obtainable. Allergies: NO KNOWN DRUGS ALLERGY. Social History: Denies smoking. Deny alcohol. Denied drugs abuse. Family History: None obtainable. Review of Systems: None obtainable. Physical Examination: Vital Signs: When I saw the patient; blood pressure 169/104, pulse 101, afebrile. Chest: Clear to auscultation. Heart: S1, S2. Regular. Abdomen: Soft, nontender, obese. Could not appreciate any organomegaly. Extremities: No edema. Neuro: Moving 4 extremities. No focality. Laboratory Data: Chest x-ray, congestion bilaterally compared to the chest x- ray was done on the , also cardiomegaly without congestion. Upon admission, hemoglobin and hematocrit 14.6/43.8. Platelets 307. Creatinine 0.7, GFR of 90. Today lab data; sodium 141, potassium 3.4, bicarb 23, BUN 33, creatinine 4.1, GFR of 14, glucose 132, calcium 7.9, phosphorus 3.9, magnesium 2.1. CK 791 back on the 10 of January. WBC 12.4, H and H 14.1/42.8, platelet 237. Urinalysis upon admission, RBC of 50. This is on Araya today. Still pending a +2 protein. Vancomycin trough 48. Current Medications: The patient on include acyclovir, was dropped to q.24 ; vancomycin; amlodipine 5 mg; labetalol; flumazenil; Keppra; hydrochlorothiazide; normal saline; folic acid; KCl; thiamine. Assessment And Plan: 1. Acute kidney injury, multifactorial, nonoliguric. Obstructive uropathy has been ruled out with normal size kidney. P/C ratio is still pending. It is multifactorial secondary to rhabdomyolysis/vancomycin toxicity/given the altered mental status to rule out any hemolytic uremic syndrome even though that we do not have any sign of hemolysis as hemoglobin is stable. Platelets being stable. I am going to send for haptoglobin LDH to rule it out. We will follow up the patient. I am going to go ahead and decrease IV fluid to 75 per hour. I agree with holding the Lasix, holding the vancomycin for the time being. Decreasing the acyclovir to 24-hour and we will follow up the patient. 2. We will try to have better control on the blood pressure for systolic around 150. I will repeat urinalysis to evaluate the hematuria. If the patient has any sign of nephritis, we will send for full serology. 3. Hypertension with the presence of acute kidney injury to rule out any nephritis. We will avoid using any nonsteroidal or contrast, given the fluctuation on the blood pressure and the patient not taking any p.o. I will continue p.r.n. labetalol and we will follow up. 4. Altered mental status as by primary and Neurology. 5. Rhabdomyolysis with acute kidney injury and the hematuria. I am going to go ahead and change IV fluid to bicarb drip. time spend exam the patient face to face , placing order , reviewing the data of lab and radiology , discussing with the staff including nusing , discussing with other [place] member including hospitalist and other organizational effectiveness consultant 65 min IRASEMA/MIKAEL Voice ID: [id number] Report ID: [id number] [facility]
--- NOTE | 2021-01-13 16:22 | EKG ---
Test Date: 2021-01-12 Test Time: 16:21:05 Professor Of Archaeology: CLARIBEL MEASUREMENT RESULTS: Intervals: Rate: 115 VA: 136 QRSD: 70 QT: 336 QTc: 464 [place]: P: 76 VA: 136 QRS: 0 T: 42 INTERPRETIVE STATEMENTS: Sinus tachycardia with occasional premature ventricular complexes Anterior infarct, age undetermined Abnormal ECG Compared to ECG 01/09/2021 20:14:21 Ventricular premature complex(es) now present Myocardial infarct finding now present Sinus rhythm no longer present Electronically Signed On 01-13-21 16:21:19 INFORMATION CONSULTANT by Antoine Jensen
[2021-01-13 18:58] LABS: UR PROTEIN 66.4 mg/dL (<11.9); Urine Protein/Creatinine Ratio 2.21 ratio (<0.15)
--- NOTE | 2021-01-13 19:46 | P.PN ---
Subjective Date of Service: 01/13/21 Chief Complaint: AMS Patient remain agitated Patient is experiencing alcohol withdrawal symptoms EKG is now reading atrial fibrillation. He has had no fever for several days. Physical Examination - Vital Signs Temperature: 97.9 F Blood Pressure: 110/65 Pulse: 97 Respirations: 16 Pulse Ox (%): 95 Assessment And Plan - Plan Physical exam General: In no apparent distress, Confused, Agitated and restless. HEENT: Mucous membr. moist/pink, Left periorbital bruise. Neck: JVD not distended Respiratory: Clear to auscultation bilaterally, Normal air movement Cardiovascular: No edema, Normal S1 S2, irregularly irregular Gastrointestinal: Normal bowel sounds, Soft and benign, Non-distended, No tenderness, Obese abdomen Musculoskeletal: No swelling, No tenderness Integumentary: No breakdown, No cyanosis Neurological: No focal motor deficit Problem List Acute metabolic encephalopathy secondary to fever/possible infection Fever with unknown source: Infectious versus withdrawal Acute alcohol withdrawal Hypertensive urgency fluid/likely emergency with neuro changes Morbid obesity. Acute renal failure Continue to monitor in ICU Unclear etiology of fever, possibly alcohol withdrawal. No more fever for several days. CIWA protocol initiated for alcohol withdrawal Patient bermudez CT scan unremarkable except sinusitis. panculturee: No growth to date. LP attempted (unsuccessful x2). Patient refused further LP attempts EEG shows no epileptic activity. Unable to do MRI of the brain today due to patient's restlessness and agitation. Attempted MRI today but the engineering technician was concerned patient's partner breathing suggesting patient was not breathing well. MRI of the brain was canceled. Repeat CT head done is unremarkable. Patient altered mental status likely related to delirium tremens. Atrial fibrillation related to alcohol withdrawal. Noted significantly elevated vancomycin trough. REGGIE is prerenal versus vancomycin-induced nephropathy. Continue IV fluids. Nephrology consulted for REGGIE. Discontinue vancomycin. Echocardiogram: Normal EF. Moderate diastolic dysfunction. Continue insulin sliding scale/Accu-Cheks Oxygen as needed Patient started on amlodipine for hypertension.
[2021-01-14] MEDS: LORazepam 2 MG/ML VIAL IV SCH ×5 (00:47→19:00)
[2021-01-14] MEDS: LABETALOL 20 MG/4ML SYRINGE IV PRN ×2 (01:05→08:36)
[2021-01-14] MEDS: HYDRALAZINE HCL 20 MG/ML VIAL IV PRN ×3 (03:32→23:12)
[2021-01-14 05:08] LABS: Albumin 2.5 g/dL (3.4-5.0); Bilirubin Total 0.6 mg/dL (0.2-1.0); Magnesium 2.3 mg/dL (1.8-2.4); Phosphorus 5.1 mg/dL (2.5-4.9); Potassium 3.8 mmol/L (3.5-5.1); Protein, Total 6.4 g/dL (6.4-8.2); Uric Acid 6.6 mg/dL (3.5-7.2)
[2021-01-14 05:18] LABS: Thyroid Stimulating Hormone 7.44 uIU/mL (0.360-3.740)
[2021-01-14] MEDS ORDERED: METOPROLOL TAR 25 MG TAB PO SCH (06:00)
[2021-01-14 07:02] LABS: Absolute Lymphocytes (CBC) 1.3 K/uL (0.7-4.9); Basophils % 0.7 % (0-1.3); Hematocrit 40.1 % (39.6-49.0); Lymphocytes % 10.3 % (15.3-44.8); MPV 8.9 fL (7.6-11.3)
[2021-01-14] MEDS ORDERED: LORazepam 2 MG/ML VIAL ONE (08:28)
[2021-01-14] MEDS ORDERED: PANTOPRAZOLE 40 MG INJ ONE ×2 (08:28→21:40)
[2021-01-14] MEDS ORDERED: THIAMINE 200 MG/2 ML INJ ONE (08:28)
[2021-01-14] MEDS ORDERED: LABETALOL 20 MG/4ML SYRINGE IV ONE (08:28)
[2021-01-14] MEDS: THIAMINE 200 MG/2 ML INJ IVP SCH (08:36)
[2021-01-14] MEDS: FOLIC ACID 1 MG TABLET PO SCH (08:37)
[2021-01-14] MEDS: PANTOPRAZOLE 40 MG INJ IVP SCH ×2 (08:37→21:00)
[2021-01-14] MEDS: METOPROLOL TARTRATE 5 MG/5 ML INJ IV PRN ×2 (08:50→18:09)
[2021-01-14] MEDS: CEFTRIAXONE 2,000 MG in NA CHLORIDE 0.9% 100 ML IV SCH ×2 (09:28→21:00)
[2021-01-14] MEDS: levETIRAcetam 1,000 MG in NA CHLORIDE 0.9% 100 ML IV SCH ×2 (10:25→21:00)
[2021-01-14] MEDS: NA CHLORIDE 0.9% IVPB SCH (10:43)
[2021-01-14] MEDS: ACYCLOVIR IVPB SCH (10:43)
--- NOTE | 2021-01-14 10:43 | P.PN ---
Subjective Date of Service: 01/14/21 Chief Complaint: AMS Patient seen examined at bedside, sleeping and on the able to arouse. Review of Systems 10-point ROS is otherwise unremarkable Physical Examination - Vital Signs Temperature: 97.7 F Blood Pressure: 104/56 Pulse: 97 Respirations: 18 Pulse Ox (%): 96 - Studies Laboratory Last Values WBC 14.10 K/uL (4.3-10.9) H 01/09/21 19:25 RBC 4.76 M/uL (4.33-5.43) 01/09/21 19:25 Hgb 14.6 g/dL (13.6-17.9) 01/09/21 19:25 Hct 43.8 % (39.6-49.0) 01/09/21 19:25 MCV 92.1 fL (80-100) 01/09/21 19:25 MCH 30.8 pg (27.0-35.0) 01/09/21 19:25 MCHC 33.4 g/dL (32.0-36.0) 01/09/21 19:25 RDW 13.6 % (12.1-15.2) 01/09/21 19:25 Plt Count 307 K/uL (152-406) 01/09/21 19:25 MPV 8.5 fL (7.6-11.3) 01/09/21 19:25 Neutrophils % 87.0 % (41.7-73.7) H 01/09/21 19:25 Lymphocytes % 8.8 % (15.3-44.8) L 01/09/21 19:25 Monocytes % 3.8 % (3.3-12.3) 01/09/21 19:25 Eosinophils % 0.0 % (0-4.4) 01/09/21 19:25 Basophils % 0.4 % (0-1.3) 01/09/21 19:25 Absolute Neutrophils 12.3 K/uL (1.8-8.0) H 01/09/21 19:25 Absolute Lymphocytes 1.2 K/uL (0.7-4.9) 01/09/21 19:25 Absolute Monocytes 0.5 K/uL (0.1-1.3) 01/09/21 19:25 Absolute Eosinophils 0.0 K/uL (0-0.5) 01/09/21 19:25 Absolute Basophils 0.1 K/uL (0-0.5) 01/09/21 19:25 Platelet Estimate Adeq 01/09/21 19:25 Morphology Comment Not seen (NOT SEEN) 01/09/21 19:25 PT 12.6 SECONDS (9.5-12.5) H 01/09/21 19:25 INR 1.09 01/09/21 19:25 APTT 27.3 SECONDS (24.3-36.9) 01/09/21 19:25 pH 7.47 (7.35-7.45) H 01/09/21 20:40 pCO2 36.5 mmHG (35-45) 01/09/21 20:40 pO2 70.1 mmHG (75-100) L 01/09/21 20:40 HCO3 26.5 mmol/L (22-28) 01/09/21 20:40 Base Excess 3.1 mmol/L 01/09/21 20:40 Oxyhemoglobin 92.5 % (94-97) L 01/09/21 20:40 ABG O2 Sat (Measured) 94.9 % (92-98.5) 01/09/21 20:40 ABG Carboxyhemoglobin 1.7 % (0-1.5) H 01/09/21 20:40 ABG Methemoglobin 0.8 % (0-1.5) 01/09/21 20:40 Other Total Hgb 14.9 g/dl (12-18) 01/09/21 20:40 Inspired O2 21.0 % 01/09/21 20:40 Sodium 137 mmol/L (136-145) 01/09/21 19:25 Potassium 4.0 mmol/L (3.5-5.1) 01/09/21 19:25 Chloride 103 mmol/L (98-107) 01/09/21 19:25 Carbon Dioxide 25 mmol/L (21-32) 01/09/21 19:25 BUN 10 mg/dL (7-18) 01/09/21 19:25 Creatinine 1.04 mg/dL (0.55-1.3) 01/09/21 19:25 Whole Bld Creatinine 0.9 mg/dL (0.6-1.3) 01/09/21 19:25 Estimated GFR 70 mL/min (=/>90) L 01/09/21 19:25 Glucose 158 mg/dL (74-106) H 01/09/21 19:25 POC Glucose 141 mg/dL (65-120) H 01/09/21 19:24 Lactic Acid 2.3 mmol/L (0.4-2.0) H 01/09/21 20:51 Calcium 9.0 mg/dL (8.5-10.1) 01/09/21 19:25 Magnesium 1.9 mg/dL (1.8-2.4) 01/09/21 19:25 Total Bilirubin 0.8 mg/dL (0.2-1.0) 01/09/21 19:25 Direct Bilirubin 0.2 mg/dL (0-0.2) 01/09/21 19:25 AST 33 U/L (15-37) 01/09/21 19:25 ALT 25 U/L (12-78) 01/09/21 19:25 Alkaline Phosphatase 63 U/L (45-117) 01/09/21 19:25 Ammonia 19 umol/L (19-54) 01/09/21 20:42 Creatine Kinase 846 U/L (39-308) H 01/09/21 19:25 Rapid Troponin I 0.02 ng/mL (0.0-0.045) 01/09/21 19:25 NT-Pro-B Natriuret Pep 2393 pg/mL (<125) H 01/09/21 19:25 Serum Total Protein 7.9 g/dL (6.4-8.2) 01/09/21 19:25 Albumin 3.2 g/dL (3.4-5.0) L 01/09/21 19:25 Globulin 4.7 g/dL (2.3-3.5) H 01/09/21 19:25 Albumin/Globulin Ratio 0.7 (1.1-1.8) L 01/09/21 19:25 Procalcitonin < 0.05 ng/mL (<0.050) 01/09/21 20:51 Urine pH 6.0 (5.0-7.0) 01/09/21 20:35 Ur Specific [place] 1.020 (1.005-1.030) 01/09/21 20:35 Glucose (UA)(Auto) Negative (Negative) 01/09/21 20:35 Urine Ketones 1+ (Negative) H 01/09/21 20:35 Urine Blood 2+ (Negative) H 01/09/21 20:35 Urine Nitrite Negative (Negative) 01/09/21 20:35 Ur Leukocyte Esterase Negative (Negative) 01/09/21 20:35 Urine RBC 20-50 /HPF (NONE SEEN) H 01/09/21 20:21 Urine WBC <5 /HPF (<5) 01/09/21 20:21 Ur Squamous Epith Cells <5 /HPF (NONE SEEN) 01/09/21 20:21 Urine Bacteria <20 /HPF (NONE SEEN) 01/09/21 20:21 Urine Mucus 4+ /HPF (NONE SEEN) H 01/09/21 20:21 Urine Culture Reflexed Not needed 01/09/21 20:21 Urine Total Protein 2+ (Negative) H 01/09/21 20:35 Fluid Source Cancelled 01/09/21 21:59 Fluid Volume Cancelled 01/09/21 21:59 Fluid Color Cancelled 01/09/21 21:59 Fluid Appearance Cancelled 01/09/21 21:59 Fld Supernatant Color Cancelled 01/09/21 21:59 Fluid WBC Cancelled 01/09/21 21:59 Fluid RBC Cancelled 01/09/21 21:59 Fluid Neutrophils Cancelled 01/09/21 21:59 Fluid Lymphocytes Cancelled 01/09/21 21:59 Fluid Eosinophils Cancelled 01/09/21 21:59 Fluid Mononuclear Cell Cancelled 01/09/21 21:59 CSF Glucose Cancelled 01/09/21 21:59 CSF Total Protein Cancelled 01/09/21 21:59 Opiates Screen Negative (NEGATIVE) 01/09/21 20:21 Methadone Screen Negative (NEGATIVE) 01/09/21 20:21 Ur Barbiturates Screen Negative (NEGATIVE) 01/09/21 20:21 Ur Phencyclidine Scrn Negative (NEGATIVE) 01/09/21 20:21 Amphetamines Screen Negative (NEGATIVE) 01/09/21 20:21 Benzodiazepines Screen Negative (NEGATIVE) 01/09/21 20:21 Cocaine Screen Negative (NEGATIVE) 01/09/21 20:21 Ur THC Screen Negative (NEGATIVE) 01/09/21 20:21 Plasma/Serum Alcohol < 10 mg/dL (<10) 01/09/21 19:25 Influenza Type A RNA Negative (NEGATIVE) 01/09/21 21:23 Influenza Type B RNA Negative (NEGATIVE) 01/09/21 21:23 SARS-CoV-2 RNA (RT-PCR) Negative (NEGATIVE) 01/09/21 21:23 Smear Scan Ok (OK) 01/09/21 19:25 Assessment And Plan - Plan Physical exam: General: Confused, Obese, Other (difficult to arouse) HEENT: Atraumatic, Normocephalic Neck: Supple, JVD not distended Respiratory: Clear to auscultation bilaterally, Normal air movement Cardiovascular: No edema, Normal pulses Capillary refill: <2 Seconds Gastrointestinal: Normal bowel sounds, Soft and benign, Non-distended Musculoskeletal: No clubbing, No swelling, No contractures, No erythema Integumentary: No rashes, No breakdown, No significant lesion, No tenderness/swelling Conclusions/Impression: Antibiotics: Vancomycin Start: 01/10 Rocephin Start: 01/10 Antiviral Acyclovir Start: 01/10 Assessment/plan Fever of unknown origin On admission patient had a T-max of 101.4. Cultures negative, panscan neg. Lumbar puncture was attempted however unsuccessful. Fever likely related to alcohol withdrawal. Continue prophylactic antibiotics at this time, once WBC is in normal range recommend discontinuing. REGGIE Vancomycin trough of the 48.3, however is not likely be a true trough as it was drawn prematurely. We will hold vancomycin until the trough levels less than 17. Will repeat the trough tomorrow a.m.. Acyclovir switch from Q 8 hr to Q 24hr. Continue to monitor patient closely. Continue recommendations per Nephrology. Alcohol abuse? Altered mental status Morbid obesity -medical management per primary team -plan of care discussed with Dr. Garcia -thank you for consultation
[2021-01-14] MEDS ORDERED: METOPROLOL TARTRATE 5 MG/5 ML INJ IV STA (12:18)
[2021-01-14] MEDS: SOD BICARB 150 MEQ in STERILE WATER 1000 ML IVBAG IV SCH (12:30)
[2021-01-14 12:48] LABS: Arterial Blood Carboxyhemoglob 1.6 % (0-1.5); Blood Gas Oxyhemoglobin 90.4 % (94-97); Blood O2 Saturation 92.7 % (92-98.5)
[2021-01-14] MEDS ORDERED: HYDRALAZINE HCL 20 MG/ML VIAL ONE ×2 (14:10→23:07)
--- NOTE | 2021-01-14 15:36 | RAD REPORT ---
EXAM DESCRIPTION: RAD - Chest Single View - 01/14/2021 2:04 pm CLINICAL HISTORY: COPD COMPARISON: Chest Single View dated 01/12/2021; Chest Single View dated 01/09/2021 FINDINGS: Lines: None. Lungs: No evidence of edema or pneumonia. Pleural: No significant pleural effusions or pneumothorax. Cardiac: Cardiomegaly. Bones: No acute fractures. Other: IMPRESSION: No acute cardiopulmonary disease.
--- NOTE | 2021-01-14 15:57 | PN ---
Date of Progress Note: 01/14/2021 Subjective: The patient was admitted with altered mental status. The patient had acute kidney injury, apparently is acute kidney injury. Our presumption it was secondary to toxic ATN/poor perfusion ATN/vancomycin toxicity ATN. The patient had also hematuria that repeated UA even with nontraumatic Araya, still positive for hematuria with significant proteinuria. The patient's kidney function started deteriorating and the patient started having been oliguric. Physical Examination: Vital Signs: Blood pressure 155/85, pulse of 130. Chest: Crackles bilateral. Heart: S1, S2. Tachycardic. Regular. Abdomen: Soft, nontender. Extremities: Plus edema. Neuro: The patient snoring, moving 4 extremities. No focality. Laboratory Data: Urinalysis; specific gravity 1.010, hematuria, WBC of 10 to 20, RBC more than 50. PC ratio 2.2. Sodium 143, potassium 3.8, bicarb 23, BUN 49, creatinine 5.7, GFR of 10, uric acid is 6.6, calcium 7.9, phosphorus 5.1, albumin 2.5, corrected calcium is 9.1. WBC 12.3, H and H 13.3/40.1, platelets 249. Vanco trough yesterday was 48. Salicylate 6.3, alcohol less than 10. Serum osmolality 307. No significant osmolar gap. TSH 7.4. Assessment And Plan: 1. Acute kidney injury, multifactorial secondary to toxic ATN secondary to vanco toxicity, poor perfusion, ATN secondary to cardiorenal/atrial fibrillation with the presence of persistent hematuria and atrial fibrillation. Our differential to rule out any nephritis, especially with the presence of the significant proteinuria and no history to support proteinuria. The other differential diagnosis is rhabdomyolysis. The patient currently oliguric, slightly on the over volume side. I am going to go ahead and proceed with dialysis for now for metabolic clearance and ultrafiltration. After stabilizing the patient, the patient may need to have a kidney biopsy further evaluation. We will follow up full serology on the patient. No osmolar gap. Urine toxicology was negative. I am going to go ahead and discontinue current IV fluid. 2. Acidosis secondary to renal failure, recovered, resolved. The patient is going to be corrected on the dialysis. We will discontinue IV fluid when the patient started on dialysis. 3. Rhabdomyolysis with the presence of acute kidney injury. Continue bicarb till we start the patient on dialysis. 4. Hypokalemia, status post supplement, resolved with the presence of progressing in the kidney disease oliguric. I will hold on any supplement. 5. Hypertension with possible nephritis, currently blood pressure better controlled. We will continue current treatment. 6. Atrial fibrillation. We will follow up with Cardiology with the presence of acute kidney injury and hematuria. We will follow up on the complement. I am going to send for LFTs and urine eosinophil and we will follow up. Alkaline phosphatase currently not elevated, which against any embolic phenomenon. 7. Alcohol withdrawal, questionable as by primary. 8. Altered mental status. Seizure was ruled out as by primary. 9. Altered mental status with renal failure. We thought about HUS or atypical HUS, but LDH was not elevated. Haptoglobin still pending. time spend exam the patient face to face , placing order , reviewing the data of lab and radiology , discussing with the staff including nusing , discussing with other [place] member including hospitalist and other care consultant 45 min BERENICE Voice ID: [id number] Report ID: [id number] JUDY
--- NOTE | 2021-01-14 17:35 | P.PN ---
Subjective Date of Service: 01/14/21 Chief Complaint: AMS Patient remain somnolent. He also remained in atrial fibrillation. No fever. Renal function is worse today. Physical Examination - Vital Signs Temperature: 98.8 F Blood Pressure: 153/91 Pulse: 135 Respirations: 23 Pulse Ox (%): 96 Assessment And Plan - Plan Physical exam General: In no apparent distress, somnolent. HEENT: Mucous membr. moist/pink, Left periorbital bruise. Neck: JVD not distended Respiratory: Clear to auscultation bilaterally, Normal air movement Cardiovascular: No edema, Normal S1 S2, irregularly irregular Gastrointestinal: Normal bowel sounds, Soft and benign, Non-distended, No tenderness, Obese abdomen Musculoskeletal: No swelling, No tenderness Integumentary: No breakdown, No cyanosis Neurological: No focal motor deficit Problem List Acute metabolic encephalopathy secondary to fever/possible infection Fever with unknown source: Infectious versus withdrawal Acute alcohol withdrawal Hypertensive urgency fluid/likely emergency with neuro changes Morbid obesity. Acute renal failure Continue to monitor in ICU. Patient had a few fever episodes in the ED. no fever episodes since admission. Leukocytosis improving. Unclear etiology of fever, possibly alcohol withdrawal. CIWA protocol initiated for alcohol withdrawal Patient bermudez CT scan unremarkable except sinusitis. Panculture: No growth to date. LP attempted (unsuccessful x2). Patient refused further LP attempts EEG shows no epileptic activity. Unable to do MRI of the brain today due to patient's restlessness and agitation. Attempted MRI today but the chemistry technician was concerned patient's pattern of breathing suggesting risk for aspiration if he lays flat. MRI of the brain was canceled. Repeat CT head done is unremarkable. Patient altered mental status likely related to delirium tremens. Atrial fibrillation likely related to alcohol withdrawal. IV metoprolol as needed for heart rate control. Will consider Cardizem drip if heart rate remains persistently high. Cardiology to follow for A. fib. Noted significantly elevated vancomycin trough. REGGIE is prerenal versus vancomycin-induced nephropathy. Patient is developing peripheral edema Nephrology input appreciated. Dr. Manning is planning hemodialysis. Vancomycin discontinued. Continue ceftriaxone for possible meningitis and acyclovir for possible encephalitis. Echocardiogram: Normal EF. Moderate diastolic dysfunction. Continue insulin sliding scale/Accu-Cheks Oxygen as needed Patient started on amlodipine for hypertension.
--- NOTE | 2021-01-14 17:45 | CON ---
Date of Consultation: 01/14/2021 Diagnosis: Renal failure History Of Present Illness: This is the case of a 70-year-old patient with morbid obesity, admitted to the hospital for multiple medical problems, found to have also renal insufficiency and a hemodialy sis catheter was requested by Dr. Manning. Most of his information is obtained from the chart since the patient cannot give information accurately. Past Medical History: Hypertension. Past Surgical History: Unknown. Social History: He does not smoke. He does not drink alcohol as per chart. Review of Systems: Unable to obtain. Physical Examination: General: The patient is awake, alert. HEENT: Pupils anicteric. Neck: Supple. Chest: Clear. Abdomen: Soft and depressible. Extremities: Good capillary refill. Laboratory Data: Blood work; WBC count of 12.3, hemoglobin of 13.3, and platelets of 249. INR is 1. 07. Creatinine is 5.72 and BUN is 49. Potassium 3.8. Assessment: A 70-year-old patient with renal failure. They asked me to put a hemodialysis catheter. I noticed Infectious Disease involved in the case with antibiotics treatment. The benefits, altern atives, and risks were fully explained, which include, but not limited to infection, bleeding, damage to adjacent structures, anesthesia complication, pneumothorax, hemothorax, cardiac arrhythmias, VT, and even . He also understands this may not any relieve symptoms. He. Might need more than on e surgical intervention. HM/MODL Voice ID: [id number] Report ID: [id number]
[2021-01-14] MEDS ORDERED: METOPROLOL TARTRATE 5 MG/5 ML INJ IV ONE (18:06)
[2021-01-14] MEDS ORDERED: CEFTRIAXONE 1000 MG/VIAL ONE (21:39)
[2021-01-15] MEDS: LORazepam 2 MG/ML VIAL IV SCH ×4 (01:00→19:00)
[2021-01-15] MEDS ORDERED: HYDRALAZINE HCL 20 MG/ML VIAL ONE ×2 (01:44→22:31)
[2021-01-15] MEDS ORDERED: METOPROLOL TARTRATE 5 MG/5 ML INJ IV ONE (02:09)
[2021-01-15] MEDS: METOPROLOL TARTRATE 5 MG/5 ML INJ IV PRN (02:09)
[2021-01-15] MEDS: HYDRALAZINE HCL 20 MG/ML VIAL IV PRN ×2 (05:21→22:34)
[2021-01-15] MEDS ORDERED: ENOXAPARIN 100 MG/ML SYR SQ ONE (05:26)
[2021-01-15] MEDS ORDERED: ENOXAPARIN 60 MG/0.6 ML SQ ONE (05:27)
[2021-01-15 06:00] LABS: Basophils % 0.3 % (0-1.3); Hematocrit 42.5 % (39.6-49.0); Lymphocytes % 7.8 % (15.3-44.8); MPV 9.4 fL (7.6-11.3); RBC Red Blood Cell Count 4.58 M/uL (4.33-5.43)
[2021-01-15 06:05] LABS: Protime INR 1.07
[2021-01-15 06:22] LABS: Albumin 2.4 g/dL (3.4-5.0); Phosphorus 5.1 mg/dL (2.5-4.9)
[2021-01-15 06:23] LABS: Potassium 3.6 mmol/L (3.5-5.1)
--- NOTE | 2021-01-15 06:31 | P.PN ---
Subjective Date of Service: 01/15/21 Chief Complaint: AMS Subjective: Other (Remains bedridden.) Physical Examination - Vital Signs Temperature: 98.8 F Blood Pressure: 161/89 Pulse: 129 Respirations: 20 Pulse Ox (%): 95 - Physical Exam General: Other (Appears acutely ill) HEENT: Atraumatic, Normocephalic Neck: Supple, JVD not distended Respiratory: Other (symmetric chest expansion) Cardiovascular: No rubs, No murmurs Gastrointestinal: Soft and benign, No guarding Musculoskeletal: No clubbing, No swelling Integumentary: No warmth Neurological: Other (Obtunded) Urinary: Chapman catheter External genitalia: Deferred Rectal: Deferred - Studies Microbiology Data (last 24 hrs): 01/09/21 20:51 Blood - Blood Aerobic Blood Culture - Final No growth in 5 days. 01/09/21 20:51 Blood - Blood Anaerobic Blood Culture - Final 01/09/21 20:42 Blood - Blood Aerobic Blood Culture - Final No growth in 5 days. 01/09/21 20:42 Blood - Blood Anaerobic Blood Culture - Final Assessment And Plan - Plan # REGGIE 2/ IV acyclovir-induced ATN +/- crystal-induced nephropathy + accelerated Htn + decreased renal bld flow from tachycardia (up to 190 bpm) Baseline SCr 0.7-0.8 as of 01/11/21 Vanc level not severely elevated. CK level not severely elevated. Urinalysis on 01/14 w/ proteinuri/hematuria/pyuria but from chapman catheter sample, potentially from urethral trauma Proteinuria 2.2g expected for ATN status Urine output increasing to 50 cc/hr this pm No emergent indication for dialysis today Hold off on kiki catheter placement Given his ATN, keep fluid balance net even per day. Insensible loss 0.5-1L/d. Urine output0.7-0.8L/d. Aim for total volume intake no more than 1.5L/d. ABG on 01/15 WNL. Dc IV bicarb. Start D5W at 50 cc/hr while he remains npo. Give IV thiamine prior to starting D5W gtt. Avoid Na-containing IV fluid to avoid pulmonary edema IV acyclovir, started on 01/10, d/c'ed on 01/14 BP control. No longer requiring Nicardipine gtt. HR control < 110 bpm per Cardiology Avoid IV contrast Avoid PPI, use famotidine if needing antacid Keep chapman Strict I/O Monitor renal panel # FUO Infection vs etoh withdrawal Cultures unrevealing Appreciate ID follow up # Acidosis D/c IV bicarb Recheck ABG at 2 pm # ETOH CIWA protocol # AMS Head CT on 01/13 unremarkable LP attempted but unsuccessful. Will attempt again. R/o Wernicke encephalopahty. Check serum B1 level. Start high dose IV thiamine trial 500 mg q8h x 6 doses, followed by 250 mg IV daily for an additional 5 more days. TSH not sig elevated F/u serum B12 LDH elevated. F/u haptoglobin. Mnimize benzo Unable to r/o non-convulsive seizure. Cont keppra. # Afib w/ RVR Per Cardiology
[2021-01-15] MEDS: LABETALOL 20 MG/4ML SYRINGE IV PRN ×3 (06:53→17:15)
[2021-01-15] MEDS ORDERED: LABETALOL 20 MG/4ML SYRINGE IV ONE ×3 (06:53→17:11)
[2021-01-15 07:53] LABS: Rheumatoid Factor NEG (NEG)
[2021-01-15] MEDS: FOLIC ACID 1 MG TABLET PO SCH (08:13)
[2021-01-15] MEDS: levETIRAcetam 1,000 MG in NA CHLORIDE 0.9% 100 ML IV SCH ×2 (09:00→20:59)
[2021-01-15] MEDS ORDERED: VANCOMYCIN 2 GM in NA CHLORIDE 0.9% 500 ML IVPB SCH (09:00)
[2021-01-15] MEDS: THIAMINE 200 MG/2 ML INJ IVP SCH ×3 (09:00→20:30)
[2021-01-15] MEDS: ACYCLOVIR IVPB SCH (09:00)
[2021-01-15] MEDS: PANTOPRAZOLE 40 MG INJ IVP SCH ×2 (09:00→20:59)
[2021-01-15] MEDS: NA CHLORIDE 0.9% IVPB SCH (09:00)
[2021-01-15] MEDS: CEFTRIAXONE 2,000 MG in NA CHLORIDE 0.9% 100 ML IV SCH ×2 (09:00→21:00)
[2021-01-15] MEDS ORDERED: THIAMINE 200 MG/2 ML INJ ONE ×2 (09:58→13:38)
[2021-01-15] MEDS ORDERED: PANTOPRAZOLE 40 MG INJ ONE ×2 (09:58→20:53)
[2021-01-15] MEDS: SOD BICARB 150 MEQ in STERILE WATER 1000 ML IVBAG IV SCH (11:30)
--- NOTE | 2021-01-15 11:47 | P.PN ---
Subjective Date of Service: 01/15/21 Chief Complaint: AMS Patient seen examined at bedside, kidney functioning worsening. Patient needs emergent dialysis. Review of Systems 10-point ROS is otherwise unremarkable Physical Examination - Vital Signs Temperature: 98.4 F Blood Pressure: 162/117 Pulse: 115 Respirations: 16 Pulse Ox (%): 95 - Studies Laboratory Last Values WBC 14.10 K/uL (4.3-10.9) H 01/09/21 19:25 RBC 4.76 M/uL (4.33-5.43) 01/09/21 19:25 Hgb 14.6 g/dL (13.6-17.9) 01/09/21 19:25 Hct 43.8 % (39.6-49.0) 01/09/21 19:25 MCV 92.1 fL (80-100) 01/09/21 19:25 MCH 30.8 pg (27.0-35.0) 01/09/21 19:25 MCHC 33.4 g/dL (32.0-36.0) 01/09/21 19:25 RDW 13.6 % (12.1-15.2) 01/09/21 19:25 Plt Count 307 K/uL (152-406) 01/09/21 19:25 MPV 8.5 fL (7.6-11.3) 01/09/21 19:25 Neutrophils % 87.0 % (41.7-73.7) H 01/09/21 19:25 Lymphocytes % 8.8 % (15.3-44.8) L 01/09/21 19:25 Monocytes % 3.8 % (3.3-12.3) 01/09/21 19:25 Eosinophils % 0.0 % (0-4.4) 01/09/21 19:25 Basophils % 0.4 % (0-1.3) 01/09/21 19:25 Absolute Neutrophils 12.3 K/uL (1.8-8.0) H 01/09/21 19:25 Absolute Lymphocytes 1.2 K/uL (0.7-4.9) 01/09/21 19:25 Absolute Monocytes 0.5 K/uL (0.1-1.3) 01/09/21 19:25 Absolute Eosinophils 0.0 K/uL (0-0.5) 01/09/21 19:25 Absolute Basophils 0.1 K/uL (0-0.5) 01/09/21 19:25 Platelet Estimate Adeq 01/09/21 19:25 Morphology Comment Not seen (NOT SEEN) 01/09/21 19:25 PT 12.6 SECONDS (9.5-12.5) H 01/09/21 19:25 INR 1.09 01/09/21 19:25 APTT 27.3 SECONDS (24.3-36.9) 01/09/21 19:25 pH 7.47 (7.35-7.45) H 01/09/21 20:40 pCO2 36.5 mmHG (35-45) 01/09/21 20:40 pO2 70.1 mmHG (75-100) L 01/09/21 20:40 HCO3 26.5 mmol/L (22-28) 01/09/21 20:40 Base Excess 3.1 mmol/L 01/09/21 20:40 Oxyhemoglobin 92.5 % (94-97) L 01/09/21 20:40 ABG O2 Sat (Measured) 94.9 % (92-98.5) 01/09/21 20:40 ABG Carboxyhemoglobin 1.7 % (0-1.5) H 01/09/21 20:40 ABG Methemoglobin 0.8 % (0-1.5) 01/09/21 20:40 Other Total Hgb 14.9 g/dl (12-18) 01/09/21 20:40 Inspired O2 21.0 % 01/09/21 20:40 Sodium 137 mmol/L (136-145) 01/09/21 19:25 Potassium 4.0 mmol/L (3.5-5.1) 01/09/21 19:25 Chloride 103 mmol/L (98-107) 01/09/21 19:25 Carbon Dioxide 25 mmol/L (21-32) 01/09/21 19:25 BUN 10 mg/dL (7-18) 01/09/21 19:25 Creatinine 1.04 mg/dL (0.55-1.3) 01/09/21 19:25 Whole Bld Creatinine 0.9 mg/dL (0.6-1.3) 01/09/21 19:25 Estimated GFR 70 mL/min (=/>90) L 01/09/21 19:25 Glucose 158 mg/dL (74-106) H 01/09/21 19:25 POC Glucose 141 mg/dL (65-120) H 01/09/21 19:24 Lactic Acid 2.3 mmol/L (0.4-2.0) H 01/09/21 20:51 Calcium 9.0 mg/dL (8.5-10.1) 01/09/21 19:25 Magnesium 1.9 mg/dL (1.8-2.4) 01/09/21 19:25 Total Bilirubin 0.8 mg/dL (0.2-1.0) 01/09/21 19:25 Direct Bilirubin 0.2 mg/dL (0-0.2) 01/09/21 19:25 AST 33 U/L (15-37) 01/09/21 19:25 ALT 25 U/L (12-78) 01/09/21 19:25 Alkaline Phosphatase 63 U/L (45-117) 01/09/21 19:25 Ammonia 19 umol/L (19-54) 01/09/21 20:42 Creatine Kinase 846 U/L (39-308) H 01/09/21 19:25 Rapid Troponin I 0.02 ng/mL (0.0-0.045) 01/09/21 19:25 NT-Pro-B Natriuret Pep 2393 pg/mL (<125) H 01/09/21 19:25 Serum Total Protein 7.9 g/dL (6.4-8.2) 01/09/21 19:25 Albumin 3.2 g/dL (3.4-5.0) L 01/09/21 19:25 Globulin 4.7 g/dL (2.3-3.5) H 01/09/21 19:25 Albumin/Globulin Ratio 0.7 (1.1-1.8) L 01/09/21 19:25 Procalcitonin < 0.05 ng/mL (<0.050) 01/09/21 20:51 Urine pH 6.0 (5.0-7.0) 01/09/21 20:35 Ur Specific [place] 1.020 (1.005-1.030) 01/09/21 20:35 Glucose (UA)(Auto) Negative (Negative) 01/09/21 20:35 Urine Ketones 1+ (Negative) H 01/09/21 20:35 Urine Blood 2+ (Negative) H 01/09/21 20:35 Urine Nitrite Negative (Negative) 01/09/21 20:35 Ur Leukocyte Esterase Negative (Negative) 01/09/21 20:35 Urine RBC 20-50 /HPF (NONE SEEN) H 01/09/21 20:21 Urine WBC <5 /HPF (<5) 01/09/21 20:21 Ur Squamous Epith Cells <5 /HPF (NONE SEEN) 01/09/21 20:21 Urine Bacteria <20 /HPF (NONE SEEN) 01/09/21 20:21 Urine Mucus 4+ /HPF (NONE SEEN) H 01/09/21 20:21 Urine Culture Reflexed Not needed 01/09/21 20:21 Urine Total Protein 2+ (Negative) H 01/09/21 20:35 Fluid Source Cancelled 01/09/21 21:59 Fluid Volume Cancelled 01/09/21 21:59 Fluid Color Cancelled 01/09/21 21:59 Fluid Appearance Cancelled 01/09/21 21:59 Fld Supernatant Color Cancelled 01/09/21 21:59 Fluid WBC Cancelled 01/09/21 21:59 Fluid RBC Cancelled 01/09/21 21:59 Fluid Neutrophils Cancelled 01/09/21 21:59 Fluid Lymphocytes Cancelled 01/09/21 21:59 Fluid Eosinophils Cancelled 01/09/21 21:59 Fluid Mononuclear Cell Cancelled 01/09/21 21:59 CSF Glucose Cancelled 01/09/21 21:59 CSF Total Protein Cancelled 01/09/21 21:59 Opiates Screen Negative (NEGATIVE) 01/09/21 20:21 Methadone Screen Negative (NEGATIVE) 01/09/21 20:21 Ur Barbiturates Screen Negative (NEGATIVE) 01/09/21 20:21 Ur Phencyclidine Scrn Negative (NEGATIVE) 01/09/21 20:21 Amphetamines Screen Negative (NEGATIVE) 01/09/21 20:21 Benzodiazepines Screen Negative (NEGATIVE) 01/09/21 20:21 Cocaine Screen Negative (NEGATIVE) 01/09/21 20:21 Ur THC Screen Negative (NEGATIVE) 01/09/21 20:21 Plasma/Serum Alcohol < 10 mg/dL (<10) 01/09/21 19:25 Influenza Type A RNA Negative (NEGATIVE) 01/09/21 21:23 Influenza Type B RNA Negative (NEGATIVE) 01/09/21 21:23 SARS-CoV-2 RNA (RT-PCR) Negative (NEGATIVE) 01/09/21 21:23 Smear Scan Ok (OK) 01/09/21 19:25 Microbiology Data (last 24 hrs): 01/09/21 20:51 Blood - Blood Aerobic Blood Culture - Final No growth in 5 days. 01/09/21 20:51 Blood - Blood Anaerobic Blood Culture - Final 01/09/21 20:42 Blood - Blood Aerobic Blood Culture - Final No growth in 5 days. 01/09/21 20:42 Blood - Blood Anaerobic Blood Culture - Final Assessment And Plan - Plan Physical exam: General: Confused, Obese, Other (difficult to arouse) HEENT: Atraumatic, Normocephalic Neck: Supple, JVD not distended Respiratory: Clear to auscultation bilaterally, Normal air movement Cardiovascular: No edema, Normal pulses Capillary refill: <2 Seconds Gastrointestinal: Normal bowel sounds, Soft and benign, Non-distended Musculoskeletal: No clubbing, No swelling, No contractures, No erythema Integumentary: No rashes, No breakdown, No significant lesion, No tenderness/swelling Conclusions/Impression: Antibiotics: Vancomycin Start: 01/10 Rocephin Start: 01/10 Antiviral Acyclovir Start: 01/10 Stop: 01/15 Assessment/plan Fever of unknown origin On admission patient had a T-max of 101.4. Cultures negative, panscan neg. Lumbar puncture was attempted however unsuccessful. Fever likely related to alcohol withdrawal. Continue prophylactic antibiotics at this time, once WBC is in normal range recommend discontinuing. REGGIE Repeat vancomycin trough >50. We will hold vancomycin until the trough levels less than 17. Acyclovir has been discontinued. Continue to monitor patient closely. Continue recommendations per Nephrology--patient needs emergent dialysis. Alcohol abuse? Altered mental status Morbid obesity -medical management per primary team -plan of care discussed with Dr. Garcia -thank you for consultation
[2021-01-15] MEDS ORDERED: D5W 1,000 ML IV ONE (13:38)
[2021-01-15] MEDS: D5W 1,000 ML IV SCH (13:47)
[2021-01-15 14:26] LABS: Arterial Blood Carboxyhemoglob 1.3 % (0-1.5); Blood Gas Oxyhemoglobin 96.1 % (94-97); Blood O2 Saturation 98.4 % (92-98.5)
--- NOTE | 2021-01-15 16:59 | P.PN ---
Subjective Date of Service: 01/15/21 Chief Complaint: AMS Patient remain unresponsive He is in atrial fibrillation Kidney function continue to worsen. No recorded fever. Vancomycin trough still high. Physical Examination - Vital Signs Temperature: 98.7 F Blood Pressure: 169/98 Pulse: 109 Respirations: 18 Pulse Ox (%): 98 - Studies Microbiology Data (last 24 hrs): 01/09/21 20:51 Blood - Blood Aerobic Blood Culture - Final No growth in 5 days. 01/09/21 20:51 Blood - Blood Anaerobic Blood Culture - Final 01/09/21 20:42 Blood - Blood Aerobic Blood Culture - Final No growth in 5 days. 01/09/21 20:42 Blood - Blood Anaerobic Blood Culture - Final Assessment And Plan - Plan Physical exam General: Unresponsive HEENT: Mucous membr. moist/pink, Left periorbital bruise. Neck: JVD not distended Respiratory: Clear to auscultation bilaterally, Normal air movement Cardiovascular: No edema, Normal S1 S2, irregularly irregular Gastrointestinal: Normal bowel sounds, Soft and benign, Non-distended, No tenderness, Obese abdomen Musculoskeletal: No swelling, No tenderness Integumentary: No breakdown, No cyanosis Neurological: No focal motor deficit Problem List Acute metabolic encephalopathy secondary to fever/possible infection Fever with unknown source: Infectious versus withdrawal Acute alcohol withdrawal Hypertensive urgency fluid/likely emergency with neuro changes Morbid obesity. Acute renal failure Continue to monitor in ICU. Patient had a few fever episodes in the ED. no fever episodes since admission. Leukocytosis improving. Unclear etiology of fever, possibly alcohol withdrawal. CIWA protocol initiated for alcohol withdrawal Patient bermudez CT scan unremarkable except sinusitis. Panculture: No growth to date. LP attempted (unsuccessful x2). Patient refused further LP attempts EEG shows no epileptic activity. Unable to do MRI of the brain today due to patient's restlessness and agitation. Attempted MRI today but the qc lab technician was concerned patient's pattern of breathing suggesting risk for aspiration if he lays flat. MRI of the brain was canceled. Repeat CT head done is unremarkable. Delirium tremors could be contributing to patient's altered mental status. Will order lumbar puncture under fluoroscopic guidance if altered mental status does not improve. We will continue to monitor. Holding all benzodiazepines. Atrial fibrillation likely related to alcohol withdrawal. IV metoprolol as needed for heart rate control. Will consider Cardizem drip if heart rate remains persistently high. Cardiology to follow for A. fib. Noted significantly elevated vancomycin trough. REGGIE deemed secondary to multiple factors including nephrotoxicity from acyclovir, possibly vancomycin toxicity. Patient seen by Dr. Renteria who recommend conservative measures for now, no hemodialysis yet. Vancomycin discontinued. Continue ceftriaxone for possible meningitis and acyclovir for possible encephalitis. Acyclovir discontinued. Echocardiogram: Normal EF. Moderate diastolic dysfunction. Continue insulin sliding scale/Accu-Cheks Oxygen as needed Continue amlodipine for hypertension.
--- NOTE | 2021-01-15 18:36 | PN ---
Date of Progress Note: 01/15/2021 Diagnosis: Renal failure. I received notification from the motor vehicle or caravan salesperson this morning to hold the catheter. We were ready to go over the placement of hemodialysis catheter, but they saw some improvement in his clinical condition and they want to hold on the catheter. The OR was notified and the case was postponed. Patient's p hysical condition at least from the surgical standpoint is still similar. HM/MODL Voice ID: [id number] Report ID: [id number]
[2021-01-15] MEDS ORDERED: LEVETIRACETAM 500 MG/5 ML VIAL IV ONE (20:53)
[2021-01-15] MEDS ORDERED: CEFTRIAXONE 1000 MG/VIAL ONE (20:53)
[2021-01-15] MEDS ORDERED: NA CHLORIDE 0.9% 250 ML ONE (20:54)
[2021-01-15] MEDS ORDERED: NA CHLORIDE 0.9% 100 ML ONE (20:54)
[2021-01-16] MEDS: THIAMINE 200 MG/2 ML INJ IVP SCH ×3 (04:30→20:30)
[2021-01-16 06:10] LABS: Basophils % 0.7 % (0-1.3); Hematocrit 40.7 % (39.6-49.0); Lymphocytes % 7.8 % (15.3-44.8); MPV 9.2 fL (7.6-11.3)
[2021-01-16] MEDS ORDERED: D5W 1,000 ML IV ONE ×2 (06:24→20:17)
[2021-01-16 06:35] LABS: Albumin 2.3 g/dL (3.4-5.0); Magnesium 2.7 mg/dL (1.8-2.4); Phosphorus 5.2 mg/dL (2.5-4.9); Potassium 3.6 mmol/L (3.5-5.1)
[2021-01-16] MEDS: D5W 1,000 ML IV SCH (06:35)
[2021-01-16] MEDS: FOLIC ACID 1 MG TABLET PO SCH (08:19)
[2021-01-16] MEDS ORDERED: NS 0.9% VIAL 10 ML ONE ×2 (08:30→13:43)
[2021-01-16] MEDS ORDERED: PANTOPRAZOLE 40 MG INJ ONE ×2 (08:30→20:17)
[2021-01-16] MEDS ORDERED: HYDRALAZINE HCL 20 MG/ML VIAL ONE (09:10)
[2021-01-16] MEDS: PANTOPRAZOLE 40 MG INJ IVP SCH ×2 (09:11→20:31)
[2021-01-16] MEDS: levETIRAcetam 1,000 MG in NA CHLORIDE 0.9% 100 ML IV SCH ×2 (09:11→20:30)
[2021-01-16] MEDS: CEFTRIAXONE 2,000 MG in NA CHLORIDE 0.9% 100 ML IV SCH (09:11)
[2021-01-16] MEDS: HYDRALAZINE HCL 20 MG/ML VIAL IV PRN (09:12)
[2021-01-16] MEDS ORDERED: LIDOCAINE 1% MPF 5 ML VIAL ONE (13:43)
[2021-01-16] MEDS: HEPARIN 500 UNIT/5 ML SYR IV PRN ×2 (14:45→14:46)
[2021-01-16] MEDS ORDERED: HEPARIN 500 UNIT/5 ML SYR IV ONE (14:55)
--- NOTE | 2021-01-16 15:05 | P.OP ---
Preoperative diagnosis: Acute Renal Failure Postoperative diagnosis: Acute Renal Failure Primary procedure: Placement of Temporary Non-Tunnelled RIGHT femoral HD Catheter Secondary procedure: ultrasound guidance utilized Anesthesia: 1% lidocaine Estimated blood loss: <5cc Specimen: none Findings: non-pulsatile dark blood returned, LEFT femoral vein possible obstruction Complications: None Implants: Hemodialysis catheter Transferred to: ICU Condition: Serious
--- NOTE | 2021-01-16 15:39 | OP ---
Date of Procedure: 01/16/2021 Surgeon: Allan Hayden MD, Preoperative Diagnosis: Acute renal failure. Postoperative Diagnosis: Acute renal failure. Procedure Performed: Placement of temporary nontunneled right femoral hemodialysis catheter using ul trasound guidance and microintroducer set. Anesthesia: Lidocaine 1% utilized. Estimated Blood Loss: Less than 5 cc. Specimen: None. Findings: Dark nonpulsatile blood returned from the right femoral vein. Left femoral vein upon ultr asound interrogation was difficult to assess, but had shadowing concerning for possible obstruction/c lot. Complications: None. Implants: Hemodialysis catheter. Patient remained in ICU in serious condition. Procedure In Detail: After informed consent was obtained from the patient's family, the patient was prepped and draped in the usual sterile fashion. After adequate anesthesia achieved, I interrogated the area of the left femoral vein, found to be having internal shadowing and with concern for possibl e clot, there was patency to the vessel, but it was only partially patent by color-flow interrogation . As such, I opted to look at the right femoral vein. This was interrogated at this point and found to be widely patent without any obvious obstructions. As such using ultrasound guidance, a microint roducer set was used. After the patient was appropriately prepped and draped, I then cannulated the right femoral vein on the first attempt with microintroducer needle. At this point, a microwire was advanced under direct visualization utilizing ultrasound guidance. At this point, I performed a smal l jeff incision at the insertion site, placed a microintroducer sheath overlying the small microwire. Microwire was removed. The standard wire was advanced under sterile conditions using Seldinger odilia hnique through the previously placed sheath. At this point, a small jeff incision was enlarged sligh tly and sequential dilatation was performed and using Seldinger technique, I placed the catheter into the right femoral vein without evidence of complication. Dark red, nonpulsatile blood was returned from both ports and flushed quite easily. At this point, I then removed the wire and capped the area and packed both with heparinized saline. At this point, the catheter was sutured in the right groin and a sterile dressing was placed over top. The patient tolerated the procedure well without eviden ce of complication and remained in the ICU in serious condition after procedure. All counts were cor rect at the end of the case. BRIA/MIKAEL Voice ID: [id number] Report ID: [id number]
--- NOTE | 2021-01-16 15:58 | CON ---
Date of Consultation: 01/16/2021 Brief History Of Present Illness: The patient is a 70-year-old obese gentleman brought to the hospit ne on 01/09/2021 for altered mental confusion. I am unable to get any information from the patient. As such information is obtained from the chart as well as medical staff. The patient is completely nonverbal during my examination, in a stuporous state. By report, he tripped and fell down his head and reportedly did not lose consciousness. He was moved to the couch. He ultimately had worsening c ondition as such, he could not move and talk at home, was brought to the hospital. He had some nause a, vomiting by report. He has not seen a doctor for several years. Neurology recommended a lumbar p uncture to be done in the ER, but attempts were unsuccessful. He had apparently a bermudez scan, which wa s negative for acute findings. Past Medical History: Scalp laceration. Past Surgical History: Scalp laceration repair. No smoking, alcohol, or recreational drug use repor samantha. A 10-point review of systems is unable to obtain. Physical Examination: General: At the time examination, he is obese, lethargic, stuporous, but respiring spontaneously. Vital Signs: His BMI is 43.6. His blood pressure was 171/76, heart rate 94, respiratory rate 17, te mperature 97.0, oxygen saturation was 97% on nasal cannula. Neck: Supple without JVD. Chest: Normal expansion and excursion. Cardiovascular: Irregular rate, irregular rhythm. Groin pulses were palpable bilaterally. Extremities: There was edema in all 4 extremities. Laboratory Data: He has a laboratory exam, which reveals a white blood cell count of 12.4, hemoglobi n 13.5, hematocrit 40.7, platelet count was 270. His sodium was 144, potassium 3.6, chloride 108, ca rbon dioxide 24, BUN 78, creatinine 7.7. His glucose is 132. His lactic acid is 1.1, phosphorus is 5.2, his albumin was 2.3, B12 was 428. He had imaging performed, which included head, chest, spine, abdomen, pelvis, cervical C-spine CT on 01/09 officially read as negative acute. Assessment/plan: 1.A 70-year-old male with worsening renal function, who I have requested to place a hemodialysis acc ess. The patient has received Lovenox recently. As such, I have recommended placement of temporary dialysis catheter to expedite initiation of dialysis. 2.We will proceed with tunneled hemodialysis catheter on Monday. The patient is posted. We will re ach out to the family to obtain consent for this procedure. We have explained the risks, benefits, a nd alternatives of placement of temporary hemodialysis catheter including but not limited to bleeding , infection, damage to surrounding tissues, need for further operating procedures. The patient's fam nghia agrees to proceed as indicated. BRIA/MIKAEL Voice ID: [id number] Report ID: [id number]
--- NOTE | 2021-01-16 15:58 | P.PN ---
Subjective Date of Service: 01/16/21 Chief Complaint: AMS No changes from yesterday. Patient remains unresponsive. He is in atrial fibrillation Serum creatinine slightly worse compared to yesterday No recorded fever. Physical Examination - Vital Signs Temperature: 97 F Blood Pressure: 171/76 Pulse: 94 Respirations: 17 Pulse Ox (%): 97 Assessment And Plan - Plan Physical exam General: Unresponsive. HEENT: Mucous membr. moist/pink, Left periorbital bruise. Neck: JVD not distended. Neck is supple, no stiffness. Respiratory: Clear to auscultation bilaterally, Normal air movement Cardiovascular: No edema, Normal S1 S2, irregularly irregular Gastrointestinal: Normal bowel sounds, Soft and benign, Non-distended, No tenderness, Obese abdomen Musculoskeletal: No swelling, No tenderness Integumentary: No breakdown, No cyanosis Neurological: Unresponsive, he moves both limbs to pain stimulus. He does not localize. Problem List Acute metabolic encephalopathy secondary to fever/possible infection Fever with unknown source: Infectious versus withdrawal Acute alcohol withdrawal Hypertensive urgency fluid/likely emergency with neuro changes Morbid obesity. Acute renal failure Continue to monitor in ICU. Patient had a few fever episodes in the ED. no fever episodes since admission. Leukocytosis improving. Unclear etiology of fever, possibly alcohol withdrawal. CIWA protocol initiated for alcohol withdrawal Patient bermudez CT scan unremarkable except sinusitis. Panculture: No growth to date. LP attempted (unsuccessful x2). Patient refused further LP attempts EEG shows no epileptic activity. Unable to do MRI of the brain today due to patient's restlessness and agitation. Attempted MRI today but the collision technician was concerned patient's pattern of breathing suggesting risk for aspiration if he lays flat. MRI of the brain was canceled. Repeat CT head done is unremarkable. Delirium tremors could be contributing to patient's altered mental status. Will order lumbar puncture under fluoroscopic guidance if altered mental status does not improve. We will continue to monitor. Holding all benzodiazepines. Atrial fibrillation likely related to alcohol withdrawal. IV metoprolol as needed for heart rate control. His heart rate is better today Cardiology to follow for A. fib. Noted significantly elevated vancomycin trough. REGGIE deemed secondary to multiple factors including nephrotoxicity from acyclovir, possibly vancomycin toxicity. I spoke to Dr. Manning who is planning hemodialysis today. General surgery-Dr. Hayden consulted who placed a temporary dialysis catheter. Vancomycin discontinued. Continue ceftriaxone for possible meningitis. Acyclovir discontinued. Echocardiogram: Normal EF. Moderate diastolic dysfunction. Continue insulin sliding scale/Accu-Cheks Oxygen as needed. Continue amlodipine for hypertension.
--- NOTE | 2021-01-16 16:57 | PN ---
Date of Progress Note: 01/16/2021 Subjective: The patient was admitted with acute kidney injury, altered mental status. The patient was started on acyclovir, had acute kidney injury, multifactorial, secondary to poor perfusion, ATN, acyclovir and vancomycin toxicity. The patient started being over oliguric, kidney function not improving. Physical Examination: Vital Signs: Blood pressure 171/76, pulse of 94, afebrile. The patient had urine output only 650 over the last 24 hours. Chest: Crackles bilateral. Heart: S1, S2. Systolic murmur. Abdomen: Soft and nontender. Extremities: Trace edema. Neuro: The patient moving 4 extremities. No focality. Not waking up. Laboratory Data: WBC 12.4, H and H 13.5/40.7, sodium 144, potassium 3.6, bicarb 24, BUN rising up 78, creatinine 7.7, GFR of 7, calcium 8.5, phosphorus 5.2, magnesium 2.7, albumin 2.3, corrected calcium is 10. Current Medications: The patient on include: 1. Albuterol. 2. Lovenox. 3. Metoprolol. 4. Flumazenil. 5. Keppra. 6. Zofran. 7. Pantoprazole. 8. D5. 9. Thiamin. Assessment And Plan: 1. Acute kidney injury, multifactorial, secondary to poor perfusion, acute tubular necrosis. 2. Atrial fibrillation with cardiorenal. 3. Acyclovir. 4. Toxic acute tubular necrosis secondary to vancomycin and acyclovir. As crystal induced, oliguric, proteinuric, close to nephrotic with hematuria. Again, I go ahead and initiate renal replacement therapy, dialysis for metabolic clearance, and will follow up the patient. I had long discussion with the family by bedside and they agreed. 5. Will monitor recovery. 6. I agree with holding the vancomycin and the acyclovir for the time being. 7. Hypertension, not controlled. We will follow up blood pressure after dialysis. Possible need for a clonidine patch. 8. Altered mental status. Follow up with Neurology. 9. Hypokalemia, will be dialyzed on high potassium bath. time spend exam the patient face to face , placing order , reviewing the data of lab and radiology , discussing with the staff including nusing , discussing with other [place] member including hospitalist and other solar sales consultant 45 min IRASEMA/MIKAEL Voice ID: [id number] Report ID: [id number] JUDY
[2021-01-16] MEDS: NEPRO SHAKE 237 ML CAN PO SCH (20:31)
[2021-01-16] MEDS ORDERED: LORazepam 2 MG/ML VIAL ONE (22:59)
[2021-01-16] MEDS: LORazepam 2 MG/ML VIAL IV PRN (23:02)
[2021-01-17] MEDS: D5W 1,000 ML IV SCH (00:47)
[2021-01-17] MEDS ORDERED: METOPROLOL TARTRATE 5 MG/5 ML INJ IV ONE (03:06)
[2021-01-17] MEDS: METOPROLOL TARTRATE 5 MG/5 ML INJ IV PRN (03:07)
[2021-01-17 03:48] LABS: Basophils % 0.3 % (0-1.3); Hematocrit 38.7 % (39.6-49.0); MPV 9.1 fL (7.6-11.3); RBC Red Blood Cell Count 4.17 M/uL (4.33-5.43)
[2021-01-17 04:19] LABS: Albumin 2.3 g/dL (3.4-5.0); Phosphorus 3.8 mg/dL (2.5-4.9); Potassium 3.5 mmol/L (3.5-5.1)
[2021-01-17] MEDS: THIAMINE 200 MG/2 ML INJ IVP SCH (04:35)
[2021-01-17] MEDS ORDERED: HYDRALAZINE HCL 20 MG/ML VIAL ONE ×2 (04:55→20:11)
[2021-01-17] MEDS: HYDRALAZINE HCL 20 MG/ML VIAL IV PRN ×2 (04:55→20:11)
[2021-01-17] MEDS: NEPRO SHAKE 237 ML CAN PO SCH ×2 (07:54→20:16)
[2021-01-17] MEDS: FOLIC ACID 1 MG TABLET PO SCH (07:54)
[2021-01-17] MEDS: levETIRAcetam 1,000 MG in NA CHLORIDE 0.9% 100 ML IV SCH ×2 (08:06→20:06)
[2021-01-17] MEDS: PANTOPRAZOLE 40 MG INJ IVP SCH ×2 (08:09→20:06)
[2021-01-17] MEDS ORDERED: PANTOPRAZOLE 40 MG INJ ONE ×2 (08:09→20:04)
[2021-01-17] MEDS: LORazepam 2 MG/ML VIAL IV PRN ×3 (08:43→20:43)
[2021-01-17] MEDS ORDERED: LORazepam 2 MG/ML VIAL ONE ×3 (08:43→20:43)
[2021-01-17] MEDS: LABETALOL 20 MG/4ML SYRINGE IV PRN (13:49)
[2021-01-17] MEDS ORDERED: LABETALOL 20 MG/4ML SYRINGE IV ONE (13:49)
--- NOTE | 2021-01-17 15:59 | PN ---
Date of Progress Note: 01/17/2021 Subjective: The patient had dialysis yesterday. The patient was admitted with acute kidney injury, multifactorial secondary to cycle of prerenal poor perfusion ATN, vancomycin toxicity. The patient had dialysis yesterday. The patient is more awake today. Physical Examination: Vital Signs: Blood pressure 141/79, pulse of 88, afebrile. The patient still had good urine output of 825 yesterday. We managed to remove 500 yesterday. When I saw the patient's blood pressure 141/79, pulse of 88. Chest: Crackles bilateral. Heart: S1, S2. Systolic murmur. Abdomen: Morbidly obese. Could not appreciate any organomegaly. Extremities: +2 edema. Neuro: More awake today. Moving 4 extremities. No focality. Current Medications: The patient on include albuterol, labetalol, metoprolol, Tylenol, Keppra, flumazenil, Nepro, folic acid, pantoprazole. Assessment And Plan: 1. Acute kidney injury, multifactorial secondary to poor perfusion, acute tubular necrosis, toxic acute tubular necrosis secondary to Acyclovir crystal induced acute tubular necrosis secondary to acyclovir, on the nonoliguric still uremic. I am going to do another session of dialysis today and we will follow up. 2. Hypertension, not controlled. We will follow up blood pressure after dialysis. 3. Altered mental status, possible uremic encephalopathy in the recovery. We will do dialysis today and we will follow up. 4. Hypokalemia, status post dialysis on high potassium bath, recovered, resolved. time spend exam the patient face to face , placing order , reviewing the data of lab and radiology , discussing with the staff including nusing , discussing with other [place] member including hospitalist and other regional engagement consultant 45 min BERENICE Voice ID: [id number] Report ID: [id number] JUDY
[2021-01-17] MEDS ORDERED: LORazepam 2 MG/ML VIAL IV ONE (16:58)
--- NOTE | 2021-01-17 17:27 | P.PN ---
Subjective Date of Service: 01/17/21 Chief Complaint: AMS Patient has become more responsive and restless. He is in atrial fibrillation Status post hemodialysis. Physical Examination - Vital Signs Temperature: 98.8 F Blood Pressure: 214/99 Pulse: 110 Respirations: 16 Pulse Ox (%): 100 Assessment And Plan - Plan Physical exam General: Unresponsive, restless. HEENT: Mucous membr. moist/pink, Left periorbital bruise. Neck: JVD not distended. Neck is supple, no stiffness. Respiratory: Clear to auscultation bilaterally, Normal air movement Cardiovascular: No edema, Normal S1 S2, irregularly irregular Gastrointestinal: Normal bowel sounds, Soft and benign, Non-distended, No tenderness, Obese abdomen Musculoskeletal: No swelling, No tenderness Integumentary: No breakdown, No cyanosis Neurological: Unresponsive, he moves both limbs to pain stimulus. He does not localize. Problem List Acute metabolic encephalopathy secondary to fever/possible infection Fever with unknown source: Infectious versus withdrawal Acute alcohol withdrawal Hypertensive urgency fluid/likely emergency with neuro changes Morbid obesity. Acute renal failure Continue to monitor in ICU. Patient had a few fever episodes in the ED. no fever episodes since admission. Leukocytosis improving. Unclear etiology of fever, possibly alcohol withdrawal. CIWA protocol initiated for alcohol withdrawal Patient bermudez CT scan unremarkable except sinusitis. Panculture: No growth to date. LP attempted (unsuccessful x2). Patient refused further LP attempts EEG shows no epileptic activity. Unable to do MRI of the brain today due to patient's restlessness and agitation. Attempted MRI today but the in flight technician was concerned patient's pattern of breathing suggesting risk for aspiration if he lays flat. MRI of the brain was canceled. Repeat CT head done is unremarkable. Delirium tremors could be contributing to patient's altered mental status. Will order lumbar puncture under fluoroscopic guidance if altered mental status does not improve. We will continue to monitor. Low-dose Ativan as needed for restlessness and agitation. Atrial fibrillation likely related to alcohol withdrawal. IV metoprolol as needed for heart rate control. His heart rate is better controlled. Hydralazine as needed for BP spikes. Cardiology to follow for A. fib. Noted significantly elevated vancomycin trough. REGGIE deemed secondary to multiple factors including nephrotoxicity from acyclovir, possibly vancomycin toxicity. Status post hemodialysis. General surgery-Dr. Hayden consulted who placed a temporary dialysis catheter. Vancomycin discontinued. Continue ceftriaxone for possible meningitis. Acyclovir discontinued. Echocardiogram: Normal EF. Moderate diastolic dysfunction. Continue insulin sliding scale/Accu-Cheks Oxygen as needed.
[2021-01-17 19:55] LABS: HIV AG/AB 4TH GEN Non-reactive (Non-reactive)
[2021-01-17] MEDS ORDERED: HYDROMORPHONE HCL 1 MG/ML INJ ONE (21:47)
[2021-01-17] MEDS: HYDROMORPHONE HCL 1 MG/ML INJ IV PRN (21:48)
[2021-01-18 00:26] VITALS: BMI 43.1
[2021-01-18] MEDS ORDERED: D5W 1,000 ML IV ONE ×2 (00:42→23:28)
[2021-01-18] MEDS: D5W 1,000 ML IV SCH ×2 (00:43→23:31)
[2021-01-18] MEDS ORDERED: HYDROMORPHONE HCL 1 MG/ML INJ ONE ×5 (03:08→23:28)
[2021-01-18] MEDS: HYDROMORPHONE HCL 1 MG/ML INJ IV PRN ×5 (03:09→23:31)
[2021-01-18 04:46] LABS: Absolute Lymphocytes (CBC) 1.4 K/uL (0.7-4.9); Basophils % 0.5 % (0-1.3); Hematocrit 39.1 % (39.6-49.0); Lymphocytes % 14.7 % (15.3-44.8); MPV 8.9 fL (7.6-11.3); RBC Red Blood Cell Count 4.18 M/uL (4.33-5.43)
[2021-01-18 05:07] LABS: Albumin 2.5 g/dL (3.4-5.0); Phosphorus 4.5 mg/dL (2.5-4.9); Potassium 3.7 mmol/L (3.5-5.1)
[2021-01-18] MEDS: levETIRAcetam 1,000 MG in NA CHLORIDE 0.9% 100 ML IV SCH ×2 (08:18→20:16)
[2021-01-18] MEDS: NEPRO SHAKE 237 ML CAN PO SCH ×2 (08:19→21:00)
[2021-01-18] MEDS: FOLIC ACID 1 MG TABLET PO SCH (08:43)
[2021-01-18] MEDS: PANTOPRAZOLE 40 MG INJ IVP SCH ×2 (08:45→20:16)
[2021-01-18] MEDS ORDERED: PANTOPRAZOLE 40 MG INJ ONE ×2 (08:45→20:13)
[2021-01-18] MEDS ORDERED: NA CHLORIDE 0.9% 500 ML ONE (09:24)
[2021-01-18] MEDS ORDERED: NA CHLORIDE 0.9% 50 ML ONE ×2 (09:50→11:04)
[2021-01-18] MEDS ORDERED: BUPIVACA 0.5%/EPI 0.0005%/PF 30 ML VIAL ONE (09:50)
[2021-01-18] MEDS ORDERED: HEPARIN 5000 UNIT/ML 1 ML VIAL ONE (09:50)
[2021-01-18] MEDS ORDERED: NS 0.9% VIAL 10 ML ONE (09:50)
[2021-01-18] MEDS ORDERED: FENTANYL CITR 100 MCG/2 ML ONE (09:58)
[2021-01-18] MEDS ORDERED: propofoL 200 MG/20 ML VIAL IV ONE (09:58)
[2021-01-18] MEDS ORDERED: KETAMINE HCL 500 MG/5 ML VIAL ONE (09:58)
[2021-01-18] MEDS ORDERED: LIDOCAINE 2% MPF 5 ML VIAL ONE (09:58)
[2021-01-18] MEDS ORDERED: MIDAZOLAM HCL 2 MG/2 ML INJ ONE (09:58)
[2021-01-18] MEDS ORDERED: CEFAZOLIN/NS 1gm 1 GM/50 ML BAG ONE (10:00)
--- NOTE | 2021-01-18 10:51 | PN ---
Date of Progress Note: 01/11/2021 Mr. Kapadia was seen by Dr. Mckay on 01/10/2021 for hypertensive urgency, borderline troponin, alte red mental status. He was on Norvasc and hydrochlorothiazide. Possible lumbar puncture was planned. Echocardiogram was done showed a normal left ventricular ejection fraction with some moderate diast olic dysfunction. Clinically speaking, the patient was doing better. We will continue to follow him . SHABBIR/MIKAEL Voice ID: [id number] Report ID: [id number]
--- NOTE | 2021-01-18 10:51 | PN ---
Date of Progress Note: 01/12/2021 He was being followed for hypertension, altered mental status, chronic diastolic congestive heart adrianne lure. His echocardiogram showed a normal ejection fraction. He has been followed by ID and Nephrolo gy and General Surgery. There is a plan for surgery on him by either Dr. Acevedo or Dr. Hayden. F rom our standpoint, he is cleared to undergo surgery. We will be available for questions if the need arises. Continue his present regimen. SHABBIR/MIKAEL Voice ID: [id number] Report ID: [id number]
[2021-01-18] MEDS ORDERED: NS 0.9% VIAL 30 ML ONE (11:05)
--- NOTE | 2021-01-18 11:12 | P.OP ---
Preoperative diagnosis: Acute Renal Failure Postoperative diagnosis: Acute Renal Failure Primary procedure: Placement of Tunnelled RIGHT Internal Jugular HD Catheter Secondary procedure: ultrasound guidance utilized, flouroscopy used Findings: non-pulsatile dark blood returned, RIGHT internal jugular patent Complications: None Implants: 19 cm Hemosplit curved catheter Transferred to: Recovery Room Condition: Good
--- NOTE | 2021-01-18 12:13 | RAD REPORT ---
EXAM DESCRIPTION: RAD - Chest Single View - 01/18/2021 12:00 pm CLINICAL HISTORY: s/p RIGHT IJ HD catheter placement Chest pain. COMPARISON: Chest Single View dated 01/14/2021; Chest Single View dated 01/12/2021; Chest Single View dated 01/09/2021 FINDINGS: Portable technique limits examination quality. Right-sided venous catheter has its tip in the SVC. No pneumothorax is evident.
--- NOTE | 2021-01-18 12:27 | OP ---
Date of Procedure: 01/18/2021 Surgeon: Allan Hayden MD, Preoperative Diagnosis: Acute renal failure. Postoperative Diagnosis: Acute renal failure. Procedure Performed: Placement of tunneled right internal jugular hemodialysis catheter using ultras ound and fluoroscopic guidance. Findings: Dark nonpulsatile blood returned. Fluoroscopy confirmed position of the SVC. The right i nternal jugular vein was patent. Complications: None. Estimated Blood Loss: Less than 5 cc. Implant: A 19 cm HemoSplit curved catheter. The patient transferred to the recovery room in good condition. Procedure In Detail: After informed consent was obtained, the patient was brought to the operating r oom, prepped and draped in the usual sterile fashion. After adequate anesthesia was achieved, the pa tient was placed in steep Trendelenburg position. At this point, ultrasound guidance was used to int errogate the right internal jugular vein, was found to be patent. Using a microintroducer set, I can nulated the right internal jugular vein on the first attempt. Dark red nonpulsatile blood was return ed. Micro wire was advanced at this point. Fluoroscopy confirmed position in the SVC. At this poin t, a small jeff incision was made at the insertion site. The micro introducer sheath was placed. At this point, the micro wire was removed. The standard wire was then advanced and position was once a gain confirmed with fluoroscopic guidance. At this point, a separate incision was made on the chest wall approximately 4-5 cm inferior. A 19 cm HemoSplit catheter was sized appropriately and a jeff in cision made over the chest. I then passed the tunneling device up through the internal jugular inser tion site over the collarbone and bring the catheter into the appropriate anatomic position. At this point, sequential dilatation was performed using Seldinger technique over the wire and the introduce r sheath was placed. The catheter was then passed into the SVC. Confirmation of position was done u sing fluoroscopic guidance once again. The catheter was flushed and withdrew dark red nonpulsatile b lood. The ports were then flushed until completely clear with sterile saline and then packed with he mateusz super flush 2 cc per port. At this point, the caps were placed. The patient positioned back o ut of Trendelenburg position. All skin incisions were copiously irrigated. The catheter was secured to the chest using 3-0 nylon suture and the insertion site was closed using interrupted 3-0 nylon ritchie ture and sterile dressing was placed over top. The patient tolerated the procedure well without evid ence of complication and transferred to PACU in good condition. All counts were correct at the end o f the case. BRIA/MIKAEL Voice ID: [id number] Report ID: [id number]
[2021-01-18] MEDS: LORazepam 2 MG/ML VIAL IV PRN ×3 (14:30→22:45)
[2021-01-18] MEDS ORDERED: LORazepam 2 MG/ML VIAL ONE ×3 (14:30→22:41)
--- NOTE | 2021-01-18 17:30 | P.PN ---
Subjective Date of Service: 01/18/21 Chief Complaint: AMS Patient is restless. He remain unresponsive. He is in atrial fibrillation Permanent dialysis catheter placed today. Physical Examination - Vital Signs Temperature: 98.8 F Blood Pressure: 214/99 Pulse: 110 Respirations: 16 Pulse Ox (%): 100 Assessment And Plan - Plan Physical exam General: Unresponsive, restless. HEENT: Mucous membr. moist/pink. Neck: JVD not distended. Neck is supple, no stiffness. Respiratory: Clear to auscultation bilaterally, Normal air movement Cardiovascular: No edema, Normal S1 S2, irregularly irregular Gastrointestinal: Normal bowel sounds, Soft and benign, Non-distended, No tenderness, Obese abdomen Musculoskeletal: No swelling, No tenderness Integumentary: No breakdown, No cyanosis Neurological: Unresponsive, he moves both limbs to pain stimulus. He does not localize. Problem List Acute metabolic encephalopathy secondary to fever/possible infection Fever with unknown source: Infectious versus withdrawal Acute alcohol withdrawal Hypertensive urgency fluid/likely emergency with neuro changes Morbid obesity. Acute renal failure Continue to monitor in ICU. Patient had a few fever episodes in the ED. no fever episodes since admission. Leukocytosis improving. Unclear etiology of fever, possibly alcohol withdrawal. CIWA protocol initiated for alcohol withdrawal Patient bermudez CT scan unremarkable except sinusitis. Panculture: No growth to date. LP attempted (unsuccessful x2). Patient refused further LP attempts EEG shows no epileptic activity. Unable to do MRI of the brain today due to patient's restlessness and agitation. Attempted MRI but the mold technician was concerned patient's pattern of breathing suggesting risk for aspiration if he lays flat. MRI of the brain was canceled. Repeat CT head done is unremarkable. Delirium tremors could be contributing to patient's altered mental status. Lumbar puncture under fluoroscopic guidance ordered. Low-dose Ativan as needed for restlessness and agitation. Atrial fibrillation likely related to alcohol withdrawal. IV metoprolol as needed for heart rate control. His heart rate is better controlled. Hydralazine as needed for BP spikes. Cardiology to follow for A. fib. Noted significantly elevated vancomycin trough. Patient developed REGGIE deemed secondary to multiple factors including nephrotoxicity from acyclovir, possibly vancomycin toxicity. Status post hemodialysis. General surgery-Dr. Hayden consulted. Dr. Alarcon placed a temporary dialysis catheter and later permanent dialysis catheter today. Vancomycin discontinued. Continue ceftriaxone for possible meningitis. Acyclovir discontinued due to REGGIE. Echocardiogram: Normal EF. Moderate diastolic dysfunction. Continue insulin sliding scale/Accu-Cheks Oxygen as needed. Insert NG tube for feeding.
--- NOTE | 2021-01-18 23:42 | PN ---
Date of Progress Note: 01/18/2021 Chief Complaint: Acute kidney injury on chronic kidney disease. The patient has history of ATN due to renal hypoperfusion and vancomycin toxicity. The patient was initiated on hemodialysis today. He underwent placement of tunneled dialysis catheter. Dialysis was not done due to malfunctioning of t he newly placed catheter. The patient remains obtunded, encephalopathic. Blood pressure is 140/76, heart rate 88. Review of Systems: Unobtainable. Physical Examination: Heart: S1 and S2. 2/6 systolic murmur, lower sternal border. Chest: Clear to auscultation bilaterally. Abdomen: Obese. Extremities: 2 to 3+ edema. Impression And Plan: 1.Acute kidney injury severe. The patient is dialysis dependent. The patient will have dialysis to [place]. The patient may need replacement of hemodialysis catheter. 2.Fluid overload edema. Continue to monitor fluid balance. 3.Encephalopathy. Patient is more alert today. Monitor electrolytes and azotemia. Plan is to sche dule dialysis for tomorrow. 4.Hypokalemia, replacement as needed. EB/MODL Voice ID: [id number] Report ID: [id number]
[2021-01-19] MEDS ORDERED: D5W 1,000 ML IV ONE (01:19)
[2021-01-19] MEDS ORDERED: LORazepam 2 MG/ML VIAL ONE ×2 (03:13→04:27)
[2021-01-19] MEDS ORDERED: HYDROMORPHONE HCL 1 MG/ML INJ ONE ×3 (03:14→17:23)
[2021-01-19] MEDS: LORazepam 2 MG/ML VIAL IV PRN ×4 (03:19→05:20)
[2021-01-19] MEDS: HYDROMORPHONE HCL 1 MG/ML INJ IV PRN ×3 (03:45→17:26)
[2021-01-19 05:21] LABS: Absolute Lymphocytes (CBC) 1.3 K/uL (0.7-4.9); Basophils % 0.4 % (0-1.3); Hematocrit 37.1 % (39.6-49.0); Lymphocytes % 14.2 % (15.3-44.8); MPV 8.8 fL (7.6-11.3); RBC Red Blood Cell Count 3.94 M/uL (4.33-5.43)
[2021-01-19 05:59] LABS: Albumin 2.6 g/dL (3.4-5.0); Bilirubin Direct 0.3 mg/dL (0-0.2); Bilirubin Total 0.6 mg/dL (0.2-1.0); Magnesium 2.5 mg/dL (1.8-2.4); Phosphorus 6.2 mg/dL (2.5-4.9); Potassium 3.8 mmol/L (3.5-5.1); Protein, Total 6.9 g/dL (6.4-8.2)
[2021-01-19] MEDS ORDERED: LABETALOL 20 MG/4ML SYRINGE IV ONE (06:10)
--- NOTE | 2021-01-19 06:37 | P.PN ---
Date of Service: 01/19/21 Subjective: ROS: 10 point ROS as noted above, otherwise negative Physical exam Problem List Acute metabolic encephalopathy secondary to fever/possible infection Fever with unknown source: Infectious versus withdrawal Acute alcohol withdrawal Hypertensive urgency fluid/likely emergency with neuro changes Morbid obesity Code: Housekeeping/Laundry Spent Managing Pts Care (In Minutes):
--- NOTE | 2021-01-19 07:44 | RAD REPORT ---
EXAM DESCRIPTION: RAD - Abdomen 1 View (KUB) - 01/19/2021 5:00 am CLINICAL HISTORY: Dobbhoff placement COMPARISON: No comparisons FINDINGS: Nonobstructive bowel gas pattern. No acute osseous abnormality.Visualized lungs are unrema rkable.No abnormal calcifications. Feeding tube tip overlies the stomach in satisfactory position. IMPRESSION: Nonobstructive bowel gas pattern. Feeding tube tip overlies the stomach.
[2021-01-19] MEDS ORDERED: HEPARIN 5000 UNIT/ML 1 ML VIAL ONE (08:48)
[2021-01-19] MEDS ORDERED: BUPIVACA 0.5%/EPI 0.0005%/PF 30 ML VIAL ONE (08:48)
[2021-01-19] MEDS ORDERED: NS 0.9% VIAL 10 ML ONE (08:48)
[2021-01-19] MEDS ORDERED: NA CHLORIDE 0.9% 0 ML ONE (08:49)
[2021-01-19] MEDS ORDERED: NA CHLORIDE 0.9% 500 ML ONE (08:52)
[2021-01-19] MEDS ORDERED: NA CHLORIDE 0.9% 50 ML ONE (08:53)
[2021-01-19] MEDS: FOLIC ACID 1 MG TABLET PO SCH (09:00)
[2021-01-19] MEDS: NEPRO SHAKE 237 ML CAN PO SCH (09:00)
[2021-01-19] MEDS ORDERED: MIDAZOLAM HCL 2 MG/2 ML INJ ONE (09:11)
[2021-01-19] MEDS ORDERED: FENTANYL CITR 100 MCG/2 ML ONE (09:12)
[2021-01-19] MEDS ORDERED: propofoL 200 MG/20 ML VIAL IV ONE (09:12)
[2021-01-19] MEDS ORDERED: LIDOCAINE 2% MPF 5 ML VIAL ONE (09:12)
[2021-01-19] MEDS ORDERED: CEFAZOLIN/NS 1gm 1 GM/50 ML BAG ONE (09:21)
--- NOTE | 2021-01-19 10:23 | P.OP ---
Preoperative diagnosis: Hemodialysis Catheter Dysfunction Postoperative diagnosis: Hemodialysis Catheter Dysfunction Primary procedure: Placement of Tunnelled LEFT Internal Jugular HD Catheter Secondary procedure: ultrasound guidance utilized, flouroscopy used Other procedure(s): Removal of RIGHT IJ HD Catheter Anesthesia: GETA + Local Estimated blood loss: <20cc Specimen: none Findings: non-pulsatile dark blood returned, LEFT internal jugular patent Complications: None Implants: 24cm Tunnelled Hemosplit HD Catheter Transferred to: Recovery Room Condition: Good
--- NOTE | 2021-01-19 11:06 | RAD REPORT ---
EXAM DESCRIPTION: RAD - Chest Single View - 01/19/2021 10:51 am CLINICAL HISTORY: S/P HEMODIALYSIS CATH PLACEMENT COMPARISON: Abdomen 1 View (KUB) dated 01/19/2021; Chest Single View dated 01/18/2021; Chest Single Vi ew dated 01/14/2021; Chest Single View dated 01/12/2021 FINDINGS: Lines: Left IJ approach dialysis catheter with tip overlying the superior cavoatrial junct ion. Enteric tube tip overlies the stomach. Lungs: Mild opacities at the left lung base. Pleural: No significant pleural effusions or pneumothorax. Cardiac: Cardiomegaly. Bones: No acute fractures. Other: IMPRESSION: Interval placement of a left IJ approach hemodialysis catheter with tip overlying the ritchie perior cavoatrial junction. No pneumothorax. Left basilar opacities which may represent atelectasis.
--- NOTE | 2021-01-19 11:18 | OP ---
Date of Procedure: 01/19/2021 Surgeon: Allan Hayden MD, Brief History Of Present Illness: The patient is a 70-year-old male, who had acute renal failure. Jaylen perez had tolerated a placement of a femoral hemodialysis catheter, which was temporary. He had been rec eiving dialysis through this. Yesterday, I took him to the operating room for placement of a right i nternal jugular tunneled hemodialysis catheter, which was placed. However, upon attempted hemodialys is yesterday, they noted that was quite positional and as the patient remains disoriented, he was solo ble to be compliant with positioning instructions. As such dialysis was challenging and his pressure s were somewhat high when he would sit in certain positions and move around as such, I was requested to address this. I, therefore, opted to replace the catheter on the opposite side to remove the nece ssity for positioning and the patient is currently confused. Preoperative Diagnosis: Hemodialysis catheter dysfunction. Postoperative Diagnosis: Hemodialysis catheter dysfunction. Procedures Performed: 1.Placement of a tunneled left internal jugular hemodialysis catheter using ultrasound and fluorosco pic guidance as well as micro-introducer set. 2.Removal of right internal jugular tunneled hemodialysis catheter. Anesthesia: General endotracheal plus local with 0.25% Marcaine. Estimated Blood Loss: Less than 20 cc. Specimen: None. Findings: Dark nonpulsatile blood return. Left internal jugular catheter was patent and at the conf luence of the SVC. Complications: None. Implants: 4 cm HemoSplit tunneled hemodialysis catheter. Disposition: The patient was transferred to the recovery room in good condition. Procedure In Detail: After informed consent was obtained, the patient was brought to the operating r oom, prepped and draped in the usual sterile fashion. After adequate anesthesia achieved, I interrog ated the area of the left internal jugular vein and found to be quite patent. After the patient was placed in steep Trendelenburg position, I cannulated the left internal jugular vein under direct visu alization using ultrasound guidance with a micro-introducer needle. At this point, micro wire was ad vanced. Fluoroscopic guidance was used and the wire was noted to be at the confluence of the SVC. A jeff incision was made at the insertion site. Micro-introducer sheath was placed at this point. Mi mixed crop farmer wire was removed and standard wire was then advanced. Position was once again confirmed with flu oroscopic guidance at this point at the confluence of the SVC and into the right heart. At this poin t, I tunneled the device on the chest wall and sized a 24 cm HemoSplit curved catheter, brought it up using the tunneling device through the insertion site. Sequential dilatation was performed using Se ldinger technique over the wire. At this point, the catheter was advanced into the confluence of the SVC. Both ports mercedes back very easily and were flushed with saline and then packed with heparinized super flush, position was confirmed with the fluoroscopy at this point. I then secured the catheter to the chest wall at this point, and sterile dressing was placed over top. I then addressed the rig ht internal jugular hemodialysis catheter with the sutures, which were placed yesterday, previously r emoved. The catheter was removed when the patient was in Trendelenburg position and the pressure was held at the site. All skin incisions were then copiously irrigated and closed with interrupted 3-0 nylon sutures and sterile dressing was placed over top. The patient tolerated the procedure well wit hout evidence of complication and transferred to PACU in good condition. All counts were correct at the end of the case. BRIA/MIKAEL Voice ID: [id number] Report ID: [id number]
--- NOTE | 2021-01-19 12:06 | RAD REPORT ---
EXAM DESCRIPTION: RAD - Fluoroscopy <1 Hour - 01/19/2021 11:42 am CLINICAL HISTORY: CATH PLACEMENT COMPARISON: Fluoroscopy <1 Hour dated 01/18/2021 FINDINGS/IMPRESSION: Seven intraoperative fluoroscopic images demonstrating placement of a left IJ a pproach dialysis catheter. The tip of the catheter in the last image terminates overlying the SVC. En teric tube noted. Right IJ approach dialysis catheter noted. Total fluoro time: 0.1 minutes Dose: 2.37 mGy
[2021-01-19] MEDS ORDERED: PANTOPRAZOLE 40 MG INJ ONE (12:07)
[2021-01-19] MEDS: levETIRAcetam 1,000 MG in NA CHLORIDE 0.9% 100 ML IV SCH (12:10)
[2021-01-19] MEDS: PANTOPRAZOLE 40 MG INJ IVP SCH (12:10)
--- NOTE | 2021-01-19 13:24 | RAD REPORT ---
EXAM DESCRIPTION: RAD - Fluoroscopy <1 Hour - 01/19/2021 10:05 am CLINICAL HISTORY: Device placement central venous catheter placement FINDINGS: A central venous catheter was placed into the superior vena cava. 8 fluoroscopic spot imag es are submitted. The examination was performed by Dr. Hayden. Fluoroscopy time 0.3 minutes
--- NOTE | 2021-01-19 15:31 | P.DS ---
Admission Date: 01/09/21 Discharge Date: 01/19/21 Reason for Admission: AMS Consultations: Neurology - Dr. Suazo Cardiology - Dr. Mckay / Camila Nephrology - Dr. Manning / Dexter / Doris Infectious disease - Dr. Garcia Procedures: CXR (01/09): IMPRESSION: No acute cardiopulmonary disease. CT facial bones (01/09): FINDINGS: No acute facial bone fracture is seen.The mandible is intact. The globes and orbital contents are grossly unremarkable.Mild paranasal sinus thickening. IMPRESSION: Negative for facial bone fracture. CT head/C-spine/chest/abdomen/pelvis (01/09): CT HEAD WITHOUT CONTRAST: No intracranial hemorrhage, hydrocephalus or extra-axial fluid collection. No acute large vascular territory infarct. Mild chronic small vessel ischemic changes. Remote appearing right basal ganglia lacunar infarct. Mild bilateral maxillary sinus and ethmoid air cell thickening. Trace thickening within the sphenoid sinuses. The calvarium is intact. CT CERVICAL SPINE WITHOUT CONTRAST: No fracture or subluxation. The prevertebral soft tissues are normal in thickness.Multilevel cervical spondylosis with varying degrees of neural foraminal narrowing. This is most advanced at the C4-5, C5-6, and C6-[address] CHEST, ABDOMEN, PELVIS: Thorax: Chest Wall: No abnormal mass Lungs: No acute abnormality. Pleura: No effusions or pneumothorax. Addie/Mediastinum: No lymphadenopathy. Aorta/Pulmonary Arteries: Unremarkable Heart: Cardiomegaly. Mild coronary artery calcifications. Abdomen/Pelvis: Liver: No acute abnormality or suspicious lesions. Biliary: No biliary ductal dilatation. Stomach: No significant focal abnormality. Duodenum: No significant focal abnormality. Pancreas: No significant abnormality. Spleen: No significant abnormality. Adrenal: No suspicious lesions. Kidney/ureter: No hydronephrosis. No renal calculi. Retroperitoneum: No retroperitoneal adenopathy. Vascular: No aneurysm. Bowel: No significant focal abnormality. Peritoneum: No ascites or free air. Bladder: Grossly unremarkable. Reproductive: Mild prostatomegaly. Bones: No acute fracture. Bridging osteophytes in the spine. Other: n/a IMPRESSION: Negative for acute traumatic findings. Pelvis x-ray (01/09): IMPRESSION: No acute osseous abnormality involving the pelvis. CXR (01/12): Mild bilateral pulmonary opacities are present in likely representing pulmonary edema or a viral infection. The heart is upper limit of normal in size. No displaced fractures. CT head (01/13): FINDINGS: No intracranial hemorrhage, hydrocephalus or extra-axial fluid collection.No areas of brain edema or evidence of midline shift. Chronic small vessel ischemic changes. Remote basal ganglia lacunar infarcts. Cerebral atrophy. Paranasal sinus thickening. The calvarium is intact. IMPRESSION: No acute intracranial abnormality. No significant change compared with 01/09/2021 Renal ultrasound (01/13): IMPRESSION: Unremarkable renal sonogram. CXR (01/14): IMPRESSION: No acute cardiopulmonary disease. CXR (01/18): FINDINGS: Portable technique limits examination quality. Right-sided venous catheter has its tip in the SVC. No pneumothorax is evident. KUB (01/19): IMPRESSION: Nonobstructive bowel gas pattern. Feeding tube tip overlies the stomach. CXR (01/19): IMPRESSION: Interval placement of a left IJ approach hemodialysis catheter with tip overlying the superior cavoatrial junction. No pneumothorax. Left basilar opacities which may represent atelectasis. Echocardiogram (01/11): LVEF: 55 to 60%. Normal wall motion. Moderate diastolic dysfunction. EEG (01/11): IMPRESSION: THIS IS A MILDLY ABNORMAL ROUTINE AWAKE EEG DUE TO THE PRESENCE OF A MILDLY SLOW BACKGROUND. THIS IS A NON-SPECIFIC FINDING INDICATING THE PRESENCE OF A MILD DIFFUSE DISTURBANCE IN CEREBRAL ACTIVITY. NO EPILEPTIFORM ACTIVITY IS EXPRESSED IN THIS STUDY. Problem List Acute metabolic encephalopathy secondary to fever/infection complicated by EtOH withdrawal and acute renal failure REGGIE secondary to possible IV acyclovir induced ATN, + accelerated HTN Fever with unknown source: Infectious versus alcohol withdrawal Acute alcohol withdrawal Hypertensive urgency Morbid obesity Brief History of Present Illness: 70 yo obese gentleman brought in today for AMS, confusion and fever. Yesterday, he tripped on the rug in the bathroom and fell and hit his head. He did not lose consciousness. His and a neighbor helped move him to the couch. She left his side to get a blanket and when she came back, he was on the floor. She could not get him off the floor. He could not move or talk. He was only moaning and groaning. She says the AMS and confusion began this morning at 10am. He also had nausea and vomiting. He was on the floor from Monday evening to Monday evening. He has not eaten or had anything to drink since then. He has a bruise to his left eye. At baseline he is AOx4 and independent. He has not seen a doctor for several years. Upon arrival, BP 207/91 and fever of 101.2. Neurology recommended LP to be done in ED, but attempts were unsuccessful. Hospital Course: Patient was admitted to the ICU, and covered with empiric antibiotics. Patient remained afebrile after admission. Infectious disease was consulted, cultures remained negative. Unclear if patient had an infectious source that led to his fever versus acute alcohol withdrawal. LP was attempted and unsuccessful in the ED x2. Patient was to have an LP by radiology, however at that time he was alert and awake and was refusing to have an LP done. Acute encephalopathy Patient was minimally responsive, but moves all extremities for the first ~36hrs, then he suddenly became alert and oriented x3, able to give accurate medical history and answer appropriately. This only lasted for an hour or 2, patient continued to have intermittent periods of mental clarity, alternating with minimal responsiveness. Initially seemed to be related to labile blood pressure, however continued despite more stable blood pressure readings. Patient then developed acute renal failure and was showing more signs of acute alcohol withdrawal requiring sedation. He had dialysis catheters placed, and had some mild improvement of his mentation after dialysis, able to follow basic commands/groans to questions. Acute renal failure Patient developed acute renal failure on day 34 this hospitalization. Nephrology was consulted. Unclear etiology, but concern for IV acyclovir toxicity, hypotension versus hypertension, and decreased perfusion secondary to significant tachycardia. Patient had dialysis catheter placed, had to be replaced secondary to no blood draw. Patient underwent dialysis with no significant improvement of renal function. Also noted to have significantly elevated vancomycin trough, and as result, vancomycin was held. Patient did have brief episodes of SVT/atrial fibrillation He did require beta-mria usage and amiodarone. Cardiology was consulted. Hypertension Patient with significant/severe hypertension on admission, systolic greater than 200. He was initially maintained on nicardipine drip and eventually will be weaned off. Blood pressure did improve with benzodiazepines as well, significant component felt to be due to alcohol withdrawal. Vital Signs/Physical Exam: Temp Pulse Resp BP Pulse Ox 98.2 F 96 H 12 117/62 96 01/19/21 12:00 01/19/21 13:00 01/19/21 13:00 01/19/21 13:00 01/19/21 13:00 General: Other (minimally responsive, groans, pulls at lines intermittently) HEENT: Sclerae nonicteric Respiratory: Diminished (at bases bilaterally) Cardiovascular: Regular rate/rhythm (intermittent tachycardia), Edema (b/l lower extremities) Gastrointestinal: Soft and benign, Non-distended, No tenderness Musculoskeletal: No tenderness Integumentary: Other (ecchymosis over L eye, with mild swelling) Neurological: Other (moves all extremities, groans to questions, intermittently follows basic commands) Laboratory Data at Discharge: WBC 9.50 K/uL (4.3-10.9) 01/19/21 04:59 Hgb 12.3 g/dL (13.6-17.9) L 01/19/21 04:59 Hct 37.1 % (39.6-49.0) L 01/19/21 04:59 Plt Count 265 K/uL (152-406) 01/19/21 04:59 PT 12.3 SECONDS (9.5-12.5) 01/15/21 05:33 INR 1.07 01/15/21 05:33 APTT 23.8 SECONDS (24.3-36.9) L 01/15/21 05:33 Sodium 143 mmol/L (136-145) 01/19/21 04:59 Potassium 3.8 mmol/L (3.5-5.1) 01/19/21 04:59 BUN 62 mg/dL (7-18) H 01/19/21 04:59 Creatinine 7.14 mg/dL (0.55-1.3) H* D 01/19/21 04:59 Glucose 115 mg/dL (74-106) H 01/19/21 04:59 Uric Acid 6.6 mg/dL (3.5-7.2) 01/14/21 03:56 Phosphorus 6.2 mg/dL (2.5-4.9) H 01/19/21 04:59 Magnesium 2.5 mg/dL (1.8-2.4) H 01/19/21 04:59 Total Bilirubin 0.6 mg/dL (0.2-1.0) 01/19/21 04:59 AST 28 U/L (15-37) 01/19/21 04:59 ALT 26 U/L (12-78) 01/19/21 04:59 Alkaline Phosphatase 55 U/L (45-117) 01/19/21 04:59 Troponin I 0.40 ng/mL (0.0-0.045) H 01/12/21 17:22 Triglycerides 67 mg/dL (<150) 01/10/21 04:00 Cholesterol 156 mg/dL (<200) 01/10/21 04:00 HDL Cholesterol 48 mg/dL (40-60) 01/10/21 04:00 Cholesterol/HDL Ratio 3.25 01/10/21 04:00 Home Medications: NK [No Home Meds] 01/10/21 Followup: NONE,NONE [Primary Care Provider] - Time spent managing pt's care (in minutes): 45
--- NOTE | 2021-01-19 17:58 | PN ---
Date of Progress Note: 01/19/2021 Subjective: The patient is status post PermCath placement today. The patient still agitated, but follows up simple command by opening eyes and squeezing hand. The patient did not receive dialysis yesterday because of malfunction of his dialysis catheter. Physical Examination: Vital Signs: Blood pressure 117/62, pulse of 96, afebrile. Chest: Decreased entry bilateral base. Morbidly obese. Heart: S1, S2. Regular. Abdomen: Morbidly obese. Could not appreciate any organomegaly. Extremities: Plus edema. Neuro: Moving 4 extremities. No focality. Opens eyes spontaneously and with command. Laboratory Data: WBC 9.5, H and H 12.3/37.1. Sodium 143, potassium 3.8, bicarb 23, BUN 62, creatinine 7.1, GFR of 8, calcium of 8, phosphorus 6.2, magnesium 2.5, albumin 2.6, corrected calcium is 9.2. Current Medications: The patient on include; 1. Albuterol. 2. Lovenox. 3. Labetalol. 4. Keppra. 5. Folic acid. 6. D5. Assessment And Plan: 1. Acute kidney injury with hematuria, unknown etiology, nonoliguric with uremia. The patient was started on dialysis. Our differential diagnosis was toxic ATN secondary to vanc crystal induced, ATN secondary to acyclovir/toxic ATN secondary to poor perfusion, ATN secondary to atrial fibrillation and cardiorenal. The patient had PermCath today. We will try to use the PermCath. If PermCath is working well, the patient will be able to be transferred to [facility]. We will follow up. 2. Hypertension, better controlled. We will follow up blood pressure after dialysis. 3. Altered mental status, unknown etiology. Follow up with Neurology. 4. Hypokalemia. The patient being dialyzed on high potassium bath, resolved. time spend exam the patient face to face , placing order , reviewing the data of lab and radiology , discussing with the staff including nusing , discussing with other [place] member including hospitalist and other client insights consultant 45 min BERENICE Voice ID: [id number] Report ID: [id number] JUDY
[2021-01-19 19:12] LABS: HBsAG Nonreactive (Nonreactive); Hepatitis C Virus RNA (PCR)log <1.18 log IU/mL
[2021-01-19 20:11] VITALS: O2SAT 96
[2021-01-19 20:12] VITALS: BP 136/83; TEMP 98.7
== END 2021-01-19 19:10 | DRG 896 ==
LOC: ER 19:05 → ERHOLD 23:40
PROVIDERS: ADMIT Hospitalist; ATTEND Hospitalist
PROC: 06HY33Z Insertion of Infusion Device into Lower Vein, Percutaneous Approach (ICD-10-PCS; principal; 2021-01-16)
PROC: 0JH63XZ Insertion of Tunneled Vascular Access Device into Chest Subcutaneous Tissue and Fascia, Percutaneous Approach (ICD-10-PCS; 2021-01-18)
PROC: 02HV33Z Insertion of Infusion Device into Superior Vena Cava, Percutaneous Approach (ICD-10-PCS; 2021-01-18)
PROC: 5A1D70Z Performance of Urinary Filtration, Intermittent, Less than 6 Hours Per Day (ICD-10-PCS; 2021-01-19)
PROC: 05PY33Z Removal of Infusion Device from Upper Vein, Percutaneous Approach (ICD-10-PCS; 2021-01-19)
DX: F10.239 Alcohol dependence with withdrawal, unspecified (principal); G93.41 Metabolic encephalopathy; N17.0 Acute kidney failure with tubular necrosis; M62.82 Rhabdomyolysis; E87.2 Acidosis; I50.32 Chronic diastolic (congestive) heart failure; T85.621A Displacement of intraperitoneal dialysis catheter, initial encounter; Z68.41 Body mass index [BMI] 40.0-44.9, adult; I47.1 Supraventricular tachycardia; I11.0 Hypertensive heart disease with heart failure; R50.9 Fever, unspecified; I16.0 Hypertensive urgency; E66.01 Morbid (severe) obesity due to excess calories; I48.91 Unspecified atrial fibrillation; E87.6 Hypokalemia; T36.8X5A Adverse effect of other systemic antibiotics, initial encounter; T37.5X5A Adverse effect of antiviral drugs, initial encounter; Y92.091 Bathroom in other non-institutional residence as the place of occurrence of the external cause; R31.9 Hematuria, unspecified; W01.10XA Fall on same level from slipping, tripping and stumbling with subsequent striking against unspecified object, initial encounter; Z20.822 Contact with and (suspected) exposure to COVID-19
CPT/HCPCS: 0240U; 36415; 51702; 62270; 70450; 70486; 71045; 71260; 72125; 72170; 74018; 74177; 76000; 76377; 76770; 80048; 80053; 80061; 80069; 80076; 80202; 80307; 80320; 80329; 81003; 81015; 82140; 82550; 82565; 82570; 82607; 82805; 82947; 83010; 83036; 83520; 83605; 83615; 83735; 83880; 83930; 84100; 84145; 84156; 84425; 84439; 84443; 84484; 84550; 85025; 85610; 85730; 86021; 86038; 86140; 86160; 86225; 86317; 86430; 86704; 86706; 87040; 87086; 87088; 87340; 87389; 87522; 90935; 92610; 93005; 93306; 95816; 99291; 99292; C1752; C9113; J0133; J0360; J0690; J0696; J1170; J1642; J1644; J1650; J1940; J1953; J2250; J2704; J3010; J3370; J3411; J3475; J3480; J7030; J7040; J7050; Q9967

== ENCOUNTER 2021-03-25 12:35 | Emergency (ER) | payer OTHER ==
--- NOTE | 2021-03-25 13:21 | RAD REPORT ---
EXAM DESCRIPTION: RAD - Chest Single View - 03/25/2021 1:15 pm CLINICAL HISTORY: HTN COMPARISON: Chest Single View dated 01/19/2021; Abdomen 1 View (KUB) dated 01/19/2021; Chest Single Vi ew dated 01/18/2021; Chest Single View dated 01/14/2021 FINDINGS: Lines: None. Lungs: Elevated left hemidiaphragm with likely left basilar atelectasis. Pleural: No significant pleural effusions or pneumothorax. Cardiac: Cardiomegaly. Bones: No acute fractures. Other: Atherosclerosis. IMPRESSION: No acute cardiopulmonary disease. Chronic scarring versus atelectasis at the left lung b ase .
[2021-03-25 13:25] LABS: Absolute Lymphocytes (CBC) 2.3 K/uL (0.7-4.9); Hematocrit 37.6 % (39.6-49.0); Lymphocytes % 26.3 % (15.3-44.8); MPV 8.3 fL (7.6-11.3); RBC Red Blood Cell Count 4.05 M/uL (4.33-5.43)
[2021-03-25 13:39] LABS: Urine Blood Negative (Negative); Urine Glucose Negative (Negative); Urine Protein Negative (Negative); Urine pH 7.5 (5.0-7.0)
--- NOTE | 2021-03-25 13:41 | RAD REPORT ---
EXAM DESCRIPTION: CT - Head Brain Wo Cont - 03/25/2021 1:20 pm CLINICAL HISTORY: WEAKNESS COMPARISON: Head Brain Wo Cont dated 01/13/2021; Facial Bones W/ Mpr dated 01/09/2021 TECHNIQUE: All CT scans are performed using dose optimization technique as appropriate and may inclu de automated exposure control or mA/KV adjustment according to patient size. FINDINGS: No intracranial hemorrhage, hydrocephalus or extra-axial fluid collection.No areas of brai n edema or evidence of midline shift. Remote right basal ganglia and left thalamic lacunar infarct. C hronic small vessel ischemic changes. Mild mucosal thickening within the left maxillary sinus. The calvarium is intact. IMPRESSION: No acute intracranial abnormality.
[2021-03-25 13:49] LABS: Albumin 3.3 g/dL (3.4-5.0); Bilirubin Direct 0.1 mg/dL (0-0.2); Bilirubin Total 0.4 mg/dL (0.2-1.0); Potassium 4.2 mmol/L (3.5-5.1); Protein, Total 8.4 g/dL (6.4-8.2); Troponin High Sensitivity 8.8 pg/mL (<58.9)
[2021-03-25 13:50] LABS: Protime INR 1.01
[2021-03-25] MEDS ORDERED: LORazepam 2 MG/ML VIAL ONE ×2 (14:29→15:19)
--- NOTE | 2021-03-25 15:09 | ER ---
Nurse's Notes [facility] Name: Aram Kapadia Age: 70 yrs Sex: Male : 1950 Arrival Date: 03/25/2021 Time: 12:37 Bed 28 Private MD: Diagnosis: Anxiety disorder, unspecified Presentation: 03/25 12:44 Chief complaint: Patient states: he was visited by his home health nurse this morning ap3 and was told his blood pressure was high and he needed to come be evaluated at the ER. Patient denies headache and pain at this time. It is reported patient had a recent hospital stay for high blood pressure. Coronavirus screen: At this time, the client does not indicate any symptoms associated with coronavirus-19. Ebola Screen: No symptoms or risks identified at this time. Initial Sepsis Screen: Does the patient meet any 2 criteria? HR > 90 bpm. No. Patient's initial sepsis screen is negative. Does the patient have a suspected source of infection? No. Patient's initial sepsis screen is negative. Risk Assessment: Do you want to hurt yourself or someone else? Patient reports no desire to harm self or others. Onset of symptoms was March 25, 2021. 12:44 Method Of Arrival: Ambulatory ap3 12:44 Acuity: DAYNE 2 ap3 Triage Assessment: 12:50 General: Appears in no apparent distress. comfortable, Behavior is calm, cooperative, ap3 appropriate for age. Pain: Denies pain. Neuro: Level of Consciousness is awake, alert, obeys commands, Oriented to person, place, time, situation, Appropriate for age Moves all extremities. Gait is steady, with cane. Cardiovascular: Denies chest pain, shortness of breath. Respiratory: Airway is patent Respiratory effort is even, unlabored, Respiratory pattern is regular, symmetrical. Historical: - Allergies: 12:49 No Known Allergies; ap3 - Home Meds: 12:49 tamsulosin 0.4 mg oral cap 1 cap once daily [Active]; Nifedipine ER Oral 30 mg daily ap3 [Active]; hydroxyzine HCl 10 mg Oral tab three times a day [Active]; - PMHx: 12:49 Hypertensive disorder; ap3 - Immunization history:: Client reports having NOT received the Covid vaccine. Pneumococcal vaccine is not up to date, Flu vaccine is not up to date. - Social history:: Smoking status: Patient denies any tobacco usage or history of. Screenin:51 Abuse screen: Denies threats or abuse. Nutritional screening: No deficits noted. ap3 Tuberculosis screening: No symptoms or risk factors identified. Fall Risk No fall in past 12 months (0 pts). Assessment: 13:13 General: Appears in no apparent distress. comfortable, Behavior is calm, cooperative, ld1 appropriate for age. Pain: Denies pain. Neuro: Level of Consciousness is awake, alert, obeys commands, Oriented to person, place, time, situation, Appropriate for age. Cardiovascular: Capillary refill < 3 seconds Patient's skin is warm and dry. Rhythm is sinus tachycardia. Respiratory: Airway is patent Respiratory effort is even, unlabored, Respiratory pattern is regular, symmetrical. GI: Abdomen is round non-distended. : No signs and/or symptoms were reported regarding the genitourinary system. EENT: No signs and/or symptoms were reported regarding the EENT system. Derm: No signs and/or symptoms reported regarding the dermatologic system. Musculoskeletal: No signs and/or symptoms reported regarding the musculoskeletal system. Vital Signs: 12:44 BP 183 / 103; Pulse 124; Resp 18; Temp 97.5; Pulse Ox 100% ; Weight 124.74 kg; Height 5 ap3 ft. 11 in. (180.34 cm); 13:13 BP 141 / 88; Pulse 129; Resp 16; Temp 97.9(O); Pulse Ox 100% on R/A; ld1 14:05 BP 157 / 97; Pulse 109; Resp 20; Pulse Ox 97% on R/A; ld1 14:50 BP 165 / 83; Pulse 109; Resp 18; Pulse Ox 97% on R/A; ld1 15:22 BP 158 / 86; Pulse 99; Resp 18; Pulse Ox 99% on R/A; ld1 12:44 Body Mass Index 38.35 (124.74 kg, 180.34 cm) ap3 ED Course: 12:37 Patient arrived in ED. as 12:49 Triage completed. ap3 12:51 Arm band placed on right wrist. ap3 13:01 Linh Clayton MD is Attending Physician. sp3 13:13 Lisa Burnette RN is Primary Nurse. ld1 13:15 XRAY Chest (1 view) In Process Unspecified. EDMS 13:15 Patient has correct armband on for positive identification. Placed in gown. Bed in low ld1 position. Call light in reach. Side rails up X2. engine monitor on. Pulse ox on. NIBP on. Door closed. Noise minimized. Warm blanket given. 13:15 No provider procedures requiring assistance completed. Inserted saline lock: 20 gauge ld1 in right antecubital area, using aseptic technique. Blood collected. 13:20 CT Head Brain wo Cont In Process Unspecified. EDMS 15:23 IV discontinued, intact, bleeding controlled, No redness/swelling at site. ld1 Administered Medications: 14:29 Drug: Ativan (LORazepam) 1 mg Route: IVP; Site: right antecubital; ld1 14:50 Follow up: Response: No adverse reaction ld1 15:15 Drug: Ativan (LORazepam) 1 mg Route: IVP; Site: right antecubital; ld1 15:22 Follow up: Response: No adverse reaction ld1 Outcome: 15:08 Discharge ordered by . sp3 15:23 Discharged to home via wheelchair, with family. ld1 15:23 Condition: stable 15:23 Discharge instructions given to patient, Instructed on discharge instructions, follow up and referral plans. Demonstrated understanding of instructions, follow-up care. 15:23 Patient left the ED. ld1 Signatures: Dispatcher [employer] Garima Martinez Amanda, RN RN ap3 Lisa Burnette RN RN ld1 Linh Clayton MD MD sp3
--- NOTE | 2021-03-25 15:09 | EDPHYS ---
Physician Documentation [facility] Name: Aram Kapadia Age: 70 yrs Sex: Male : 1950 Arrival Date: 03/25/2021 Time: 12:37 Bed 28 Private MD: ED Physician Linh Clayton HPI: 03/25 13:31 This 70 yrs old Male presents to ER via Ambulatory with complaints of High Blood sp3 Pressure. 13:31 70-year-old male with a history of hypertension, recent hemodialysis, currently on home sp3 health presents to the ED for chief complaint hypertension and tachycardia identified by home health nurse today. Patient is asymptomatic from his abnormal vital signs and denies any headache, neck pain, chest pain, shortness of breath, left arm pain, syncope, near syncope, neuro symptoms, abdominal pain, nausea, vomiting, diarrhea, rash, any other symptoms at this time on ROS.. Historical: - Allergies: 12:49 No Known Allergies; ap3 - Home Meds: 12:49 tamsulosin 0.4 mg oral cap 1 cap once daily [Active]; Nifedipine ER Oral 30 mg daily ap3 [Active]; hydroxyzine HCl 10 mg Oral tab three times a day [Active]; - PMHx: 12:49 Hypertensive disorder; ap3 - Immunization history:: Client reports having NOT received the Covid vaccine. Pneumococcal vaccine is not up to date, Flu vaccine is not up to date. - Social history:: Smoking status: Patient denies any tobacco usage or history of. ROS: 13:32 Constitutional: Negative for fever, chills, and weight loss, Eyes: Negative for injury, sp3 pain, redness, and discharge, ENT: Negative for injury, pain, and discharge, Neck: Negative for injury, pain, and swelling, Respiratory: Negative for shortness of breath, cough, wheezing, and pleuritic chest pain, Abdomen/GI: Negative for abdominal pain, nausea, vomiting, diarrhea, and constipation, Back: Negative for injury and pain, Skin: Negative for injury, rash, and discoloration, Neuro: Negative for headache, weakness, numbness, tingling, and seizure, Psych: Negative for depression, anxiety, suicide ideation, homicidal ideation, and hallucinations, Allergy/Immunology: Negative for hives, rash, and allergies, Endocrine: Negative for neck swelling, polydipsia, polyuria, polyphagia, and marked weight changes. 13:32 All other systems are negative. Exam: 13:33 Constitutional: This is a well developed, well nourished patient who is awake, alert, sp3 and in no acute distress. Head/Face: Normocephalic, atraumatic. Eyes: Pupils equal round and reactive to light, extra-ocular motions intact. Lids and lashes normal. Conjunctiva and sclera are non-icteric and not injected. Cornea within normal limits. Periorbital areas with no swelling, redness, or edema. ENT: Nares patent. No nasal discharge, no septal abnormalities noted. External auditory canals are clear. Oropharynx with no redness, swelling, or masses, exudates, or evidence of obstruction, uvula midline. Mucous membranes moist. Neck: Trachea midline, no thyromegaly or masses palpated, and no cervical lymphadenopathy. Supple, full range of motion without nuchal rigidity, or vertebral point tenderness. No Meningismus. Chest/axilla: Normal chest wall appearance and motion. Nontender with no deformity. No lesions are appreciated. Respiratory: Lungs have equal breath sounds bilaterally, clear to auscultation and percussion. No rales, rhonchi or wheezes noted. No increased work of breathing, no retractions or nasal flaring. Abdomen/GI: Soft, non-tender, with normal bowel sounds. No distension or tympany. No guarding or rebound. No evidence of tenderness throughout. Back: No spinal tenderness. No costovertebral tenderness. Full range of motion. Skin: Warm, dry with normal turgor. Normal color with no rashes, no lesions, and no evidence of cellulitis. MS/ Extremity: Pulses equal, no cyanosis. Neurovascular intact. Full, normal range of motion. Neuro: Awake and alert, GCS 15, oriented to person, place, time, and situation. Cranial nerves II-XII grossly intact. Motor strength 5/5 in all extremities. Sensory grossly intact. Cerebellar exam normal. Normal gait. Psych: Awake, alert, with orientation to person, place and time. Behavior, mood, and affect are within normal limits. 13:33 Cardiovascular: Normal cardiac exam other than tachycardia.. 14:14 ECG was reviewed by the Attending Physician. EKG demonstrates sinus tachycardia at 130 sp3 bpm with normal levels, normal QRS, leftward axis, normal ST/T-segment without evidence of ischemia. Vital Signs: 12:44 BP 183 / 103; Pulse 124; Resp 18; Temp 97.5; Pulse Ox 100% ; Weight 124.74 kg; Height 5 ap3 ft. 11 in. (180.34 cm); 13:13 BP 141 / 88; Pulse 129; Resp 16; Temp 97.9(O); Pulse Ox 100% on R/A; ld1 14:05 BP 157 / 97; Pulse 109; Resp 20; Pulse Ox 97% on R/A; ld1 14:50 BP 165 / 83; Pulse 109; Resp 18; Pulse Ox 97% on R/A; ld1 15:22 BP 158 / 86; Pulse 99; Resp 18; Pulse Ox 99% on R/A; ld1 12:44 Body Mass Index 38.35 (124.74 kg, 180.34 cm) ap3 MDM: 13:18 Patient medically screened. sp3 13:33 Data reviewed: vital signs, nurses notes. ED course: 70-year-old male with history of sp3 hypertension who presented for tachycardia and high blood pressure. Blood pressure is self resolved however tachycardia remains in the 120s. Patient states that he is to be on Ativan and is requesting that and thinks that all of his symptoms may just be from anxiety. He denies any somatic pain symptoms at this time. I ordered a CT scan of the head, EKG, laboratory values, x-ray of the chest, and general observation. If work-up is negative will administer Ativan in hopes of lowering his heart rate and improving his symptomatic anxiety. Potential discharge depending on data and ultimate patient course for disposition.. 15:07 ED course: After 1 mg of Ativan. Work-up is negative. Second milligram of Ativan will sp3 be given the patient follow-up with his PCP for continued outpatient monitoring of his anxiety which is what is causing his tachycardia. Patient has no other mechanism including sepsis, ICH, ACS, CVA, or any other critical findings at this time.. 03/25 13:04 Order name: Basic Metabolic Panel sp3 03/25 13:04 Order name: CBC with Diff sp3 03/25 13:04 Order name: LFT's sp3 03/25 13:04 Order name: Magnesium sp3 03/25 13:04 Order name: NT PRO-BNP sp3 03/25 13:04 Order name: PT-INR; Complete Time: 14:24 sp3 03/25 13:04 Order name: Troponin HS sp3 03/25 13:04 Order name: XRAY Chest (1 view); Complete Time: 14:24 sp3 03/25 13:04 Order name: CT Head Brain wo Cont; Complete Time: 14:24 sp3 03/25 13:04 Order name: Basic Metabolic Panel EDMS 03/25 13:04 Order name: CBC with Automated Diff; Complete Time: 14:24 EDMS 03/25 13:04 Order name: Liver (Hepatic) Function EDMS 03/25 13:39 Order name: Urine Dipstick-Ancillary; Complete Time: 14:24 EDMS 03/25 13:04 Order name: EKG; Complete Time: 13:05 3 03/25 13:04 Order name: Cardiac monitoring; Complete Time: 13:13 3 03/25 13:04 Order name: EKG - Nurse/Tech; Complete Time: 13:13 3 03/25 13:04 Order name: IV Saline Lock; Complete Time: 13:13 sp3 03/25 13:04 Order name: Labs collected and sent; Complete Time: 13:13 3 03/25 13:04 Order name: O2 Per Protocol; Complete Time: 13:13 sp3 03/25 13:04 Order name: O2 Sat Monitoring; Complete Time: 13:13 3 03/25 13:04 Order name: Urine Dipstick-Ancillary (obtain specimen); Complete Time: 13:40 3 03/25 13:27 Order name: Labs - recollect needed: please recollect blue top; Complete Time: 13:40 em1 Administered Medications: 14:29 Drug: Ativan (LORazepam) 1 mg Route: IVP; Site: right antecubital; ld1 14:50 Follow up: Response: No adverse reaction ld1 15:15 Drug: Ativan (LORazepam) 1 mg Route: IVP; Site: right antecubital; ld1 15:22 Follow up: Response: No adverse reaction ld1 Disposition Summary: 03/25/21 15:08 Discharge Ordered Location: Home sp3 Condition: Stable sp3 Diagnosis - Anxiety disorder, unspecified sp3 Followup: sp3 - With: Private Physician - When: Upon discharge from the Emergency Department - Reason: Re-evaluation by your physician Discharge Instructions: - Discharge Summary Sheet sp3 - Generalized Anxiety Disorder, Adult sp3 Forms: - Medication Reconciliation Form sp3 - Thank You Letter sp3 - Antibiotic Education sp3 - Prescription Opioid Use sp3 Signatures: Dispatcher [employer] Terrence Martinez em1 Deepika Renteria RN RN ap3 Lisa Burnette RN RN ld1 Linh Clayton MD MD sp3
[2021-03-25 15:30] VITALS: TEMP 97.9
[2021-03-25 15:34] VITALS: BP 158/86; O2SAT 99
[2021-03-25 18:24] LABS: Magnesium 1.6
== END 2021-03-25 15:23 | disposition home or self-care (01) ==
LOC: ER 12:35
DX: F41.9 Anxiety disorder, unspecified (principal); I10 Essential (primary) hypertension
CPT/HCPCS: 36415; 70450; 71045; 80048; 80076; 81003; 83735; 83880; 84484; 85025; 85610; 93005; 96374; 99284